=== PATIENT | male | born 1955 | race American Indian/Alaskan Native ===

== ENCOUNTER 2018-02-26 22:53 | Inpatient (IN) | payer OTHER ==
[2018-02-26 23:42] LABS: Basophils # (Auto) 0.2 K/mm3 (0.0-0.1); Basophils % (Auto) 1.1 % (0.0-1.8); Lymphocytes # (Auto) 0.7 K/mm3 (1.2-5.4); Lymphocytes % (Auto) 4.6 % (13.4-35.0); Mean Corpuscular HGB Conc 30 % (32-34); Mean Corpuscular Hemoglobin 28 pg (28-32); Mean Corpuscular Volume 94 fl (84-94); Platelet Count 202 K/mm3 (140-440); Red Cell Distribution Width 15.9 % (13.2-15.2)
[2018-02-26 23:55] LABS: Calcium 9.3 mg/dL (8.4-10.2)
[2018-02-27] MEDS ORDERED: NACL 0.9% 1000 ML 1,000 ML IV ONE ×2 (00:12→00:45)
[2018-02-27 00:15] LABS: Hematocrit 50.1 % (35.5-45.6); Hemoglobin 15.5 gm/dl (11.8-15.2)
--- NOTE | 2018-02-27 00:16 | Emergency Department Report ---
- General Chief complaint: Weakness Stated complaint: SLURRED SPEECH/WEAKNESS/LIGHTHEADED Time Seen by Provider: 02/26/18 23:59 Source: patient Mode of arrival: Ambulatory Limitations: No Limitations - History of Present Illness Initial comments: Patient is 62 years old male with history of hypertension and hyperlipidemia. Patient presented to the ER complaining of 3 week history of weakness generalized. Patient stated that he was put on hydrochlorothiazide and Norvasc for his blood pressure 3 months ago and since then he started to have weakness which is progressively getting worse. Patient also stated that his been going to the bathroom a lot recently but denied any dysuria, hematuria or urgency. Patient also denied any fever, nausea or vomiting. No chest pain or shortness of breath. MD Complaint: generalized weakness Location: generalized Severity: moderate - Related Data Home Medications Medication Instructions Recorded Confirmed Last Taken Olmesartan (Nf) 20 mg PO DAILY 02/26/18 02/26/18 Unknown Pravastatin 40 mg PO DAILY 02/26/18 02/26/18 Unknown Triamterene-Hctz 75-50 mg Tab 1 tab PO DAILY 02/26/18 02/26/18 Unknown amLODIPine 10 mg PO DAILY 02/26/18 02/26/18 Unknown Allergies Allergy/AdvReac Type Severity Reaction Status Date / Time No Known Allergies Allergy Unverified 02/26/18 23:14 ED Review of Systems ROS: Stated complaint: SLURRED SPEECH/WEAKNESS/LIGHTHEADED Other details as noted in HPI Comment: All other systems reviewed and negative Constitutional: denies: chills, fever Respiratory: denies: cough, orthopnea, shortness of breath, SOB with exertion, SOB at rest Cardiovascular: denies: chest pain, palpitations, dyspnea on exertion Gastrointestinal: denies: abdominal pain, nausea, vomiting, diarrhea, constipation, hematemesis, melena, hematochezia Neurological: weakness (generalized). denies: headache, numbness, paresthesias , confusion, abnormal gait, vertigo ED Past Medical Hx - Past Medical History Hx Hypertension: Yes Additional medical history: High Cholesterol - Surgical History Past Surgical History?: No - Social History Smoking Status: Never Smoker Substance Use Type: None - Medications Home Medications: Home Medications Medication Instructions Recorded Confirmed Last Taken Type Olmesartan (Nf) 20 mg PO DAILY 02/26/18 02/26/18 Unknown History Pravastatin 40 mg PO DAILY 02/26/18 02/26/18 Unknown History Triamterene-Hctz 75-50 mg Tab 1 tab PO DAILY 02/26/18 02/26/18 Unknown History amLODIPine 10 mg PO DAILY 02/26/18 02/26/18 Unknown History ED Physical Exam - General Limitations: No Limitations General appearance: alert, in no apparent distress - Head Head exam: Present: atraumatic, normocephalic, normal inspection - ENT ENT exam: Present: mucous membranes dry - Neck Neck exam: Present: normal inspection, full ROM. Absent: tenderness, meningismus, lymphadenopathy, thyromegaly - Respiratory Respiratory exam: Present: normal lung sounds bilaterally. Absent: respiratory distress, wheezes, rales, rhonchi, chest wall tenderness, accessory muscle use, decreased breath sounds, prolonged expiratory - Cardiovascular Cardiovascular Exam: Present: regular rate, normal rhythm, normal heart sounds - GI/Abdominal GI/Abdominal exam: Present: soft, normal bowel sounds. Absent: distended, tenderness, guarding, rebound, rigid, organomegaly, mass, bruit, pulsatile mass , hernia - Extremities Exam Extremities exam: Present: normal inspection, full ROM, normal capillary refill - Back Exam Back exam: Present: normal inspection, full ROM. Absent: tenderness, CVA tenderness (R), CVA tenderness (L), muscle spasm, paraspinal tenderness, vertebral tenderness - Neurological Exam Neurological exam: Present: alert, oriented X3, CN II-XII intact, normal gait, reflexes normal - Psychiatric Psychiatric exam: Present: normal affect, normal mood. Absent: depressed, agitated, anxious, flat affect, manic, homicidal ideation, suicidal ideation - Skin Skin exam: Present: warm, dry, intact - Assessment Assessment Interval: Baseline - Level of Consciousness 1a. Level of Consciousness: alert - LOC Questions 1b. LOC Questions: answers correctly - LOC Command 1c. LOC Commands: performs tasks correctly - Best Gaze 2. Best Gaze: normal - Visual 3. Visual: no visual loss - Facial Palsy 4. Facial Palsy: normal symmetrical movement - Motor Arm 5b. Motor Arm Right: no drift 5a. Motor Arm Left: no drift - Motor Leg 6a. Motor Leg Left: no drift 6b. Motor Leg Right: no drift - Limb Ataxia 7. Limb Ataxia: absent - Sensory 8. Sensory: normal - Best Language 9. Best Language: no aphasia - Dysarthria 10. Dysarthria: normal - Extinction and Inattention 11. Extinction/Inattention: no abnormality - Scoring Total Score: 0 Stroke Severity: No Stroke Symptoms ED Course Vital Signs 02/26/18 22:57 Temperature 97.5 F L Pulse Rate 98 H Respiratory 18 Rate Blood Pressure 109/77 O2 Sat by Pulse 98 Oximetry ED Medical Decision Making - Lab Data Result diagrams: 02/26/18 23:25 02/26/18 23:25 - EKG Data -: EKG Interpreted by Tx EKG shows normal: sinus rhythm Rate: normal - EKG Data Interpretation: no acute changes - Radiology Data Radiology results: report reviewed Referring Physician: AMANDA SOLANO Patient Name: ALMAZ FERNANDEZ Date of : 1955 Sex: Male Report Date: 2018-02-27 Report Status: [place] [address] Cat Scan Report Signed Patient: ALMAZ FERNANDEZ MR#: [id number] : 1955 Acct:[id number] Age/Sex: 62 / M ADM Date: 02/26/18 Loc: ED Attending Dr: Ordering Physician: AMANDA SOLANO Date of Service: 02/26/18 Procedure(s): CT head/brain wo con Accession Number(s): [id number] cc: AMANDA SOLANO FINAL REPORT EXAM: CT HEAD/BRAIN WO CON HISTORY: slurred speech, lightedness, weakness. not taken meds in 3 days TECHNIQUE: Noncontrast CT axial images of the brain. PRIORS: None. FINDINGS: No parenchymal mass, mass effect, hemorrhage, midline shift or hydrocephalus. No evidence of acute cortical infarct. No abnormal, extra-axial fluid or air collection. Osseous calvarium grossly intact. IMPRESSION: 1. No acute intracranial findings. Transcribed By: [facility] Dictated By: NIA MCKEON MD Electronically Authenticated By: NIA MCKEON MD Signed Date/Time: 02/27/1823 DD/ TD/TT: 02/27/1823 - Medical Decision Making I discussed the patient was Dr. Moreland, he agreed to admit the patient to medical service. Critical Care Time: Yes Critical care time in (mins) excluding proc time.: 30 Critical care attestation.: If time is entered above; I have spent that time in minutes in the direct care of this critically ill patient, excluding procedure time. ED Disposition Clinical Impression: Acute renal failure, DKA (diabetic ketoacidoses), Hyperkalemia Disposition: OP ADMIT IP TO THIS HOSP Is pt being admited?: Yes Condition: Stable Instructions: Diabetic Ketoacidosis (ED) Referrals: PRIMARY CARE, [Primary Care Provider] - 3-5 Days
--- NOTE | 2018-02-27 00:24 | Cat Scan Report ---
FINAL REPORT EXAM: CT HEAD/BRAIN WO CON HISTORY: slurred speech, lightedness, weakness. not taken meds in 3 days TECHNIQUE: Noncontrast CT axial images of the brain. PRIORS: None. FINDINGS: No parenchymal mass, mass effect, hemorrhage, midline shift or hydrocephalus. No evidence of acute cortical infarct. No abnormal, extra-axial fluid or air collection. Osseous calvarium grossly intact. IMPRESSION: 1. No acute intracranial findings.
[2018-02-27] MEDS ORDERED: HumuLIN R IV ONE (00:45)
[2018-02-27] MEDS ORDERED: D50W (25GM) Syringe IV PRN (00:46)
[2018-02-27] MEDS ORDERED: D5W/0.45% NACL/KCL 20 MEQ 20 MEQ/1,000 ML BAG IV SCH (00:46)
[2018-02-27] MEDS ORDERED: PROVENTIL IH ONE (00:50)
[2018-02-27] MEDS ORDERED: KIONEX PO ONE (00:50)
[2018-02-27 01:11] LABS: INR 1.25 (0.87-1.13)
[2018-02-27 01:12] LABS: Thrombin Time 20.9 Sec. (15.1-19.6)
[2018-02-27 01:53] LABS: Bilirubin,Urine NEG (Negative); Blood,Urine SM (Negative); Color,Urine Straw (Yellow); Protein,Urine <15 mg/dL mg/dL (Negative); Urobilinogen,Urine < 2.0 mg/dL (<2.0)
[2018-02-27] MEDS ORDERED: NACL 0.9% 1000 ML 1,000 ML IV SCH (02:00)
[2018-02-27 02:08] LABS: Calcium 9.4 mg/dL (8.4-10.2)
[2018-02-27] MEDS: HumuLIN R 100 UNITS in NACL 0.9% 99 ML IV SCH ×2 (02:38→20:25)
[2018-02-27 04:15] LABS: Calcium 9.2 mg/dL (8.4-10.2)
--- NOTE | 2018-02-27 05:08 | History and Physical Report ---
CHIEF COMPLAINT: Weakness. HISTORY OF PRESENTING ILLNESS: The patient is a 62-year-old who said he has been feeling weak for about 3 weeks with generalized weakness, but the patient denied history of numbness, dizziness, chest pain, or shortness of breath. There is also no history of nausea or vomiting; however, the patient said he thought this weakness started after he was put on blood pressure medications that include hydrochlorothiazide and Norvasc. The patient said he also noted that he has been using the bathroom a lot and said he has been urinating so much in the last few days and said that he had a physical done not too long ago and was not told anything about abnormal blood lab tests and presented for evaluation. PAST MEDICAL HISTORY: Pertinent for hypertension, high cholesterol. PAST SURGICAL HISTORY: Unremarkable. FAMILY HISTORY: Noncontributory. SOCIAL HISTORY: The patient does not smoke, does not drink alcohol, and does not use illicit drugs. MEDICATIONS: The patient is on amlodipine 10 mg by mouth daily, triamterene/hydrochlorothiazide 75/50 one by mouth daily, pravastatin 40 mg by mouth daily, olmesartan 20 mg by mouth daily. ALLERGIES: THERE ARE NO KNOWN DRUG ALLERGIES. REVIEW OF SYSTEMS: CONSTITUTIONAL: There is no fever, no chills, no diaphoresis. HEENT: There is no headache or sore throat. CARDIOVASCULAR: There is no chest pain or orthopnea. RESPIRATORY: There is no shortness of breath or cough. GASTROINTESTINAL: There is no nausea, no vomiting, no abdominal pain, diarrhea, or constipation. NEUROLOGICAL: Generalized weakness noted. No numbness, no dizziness, no altered mental status. MUSCULOSKELETAL: There is no joint pain or swelling. DERMATOLOGICAL: There is no skin rash or itching. GENITOURINARY: There is no dysuria, hematuria, or flank pain. Rest of system review is normal. PHYSICAL EXAMINATION: GENERAL: At the time of exam, the patient was found to be a lot oriented x 3 and not in acute distress. VITAL SIGNS: At the time of initial presentation show temperature of 97.5 degrees Fahrenheit, pulse of 98, respiration 18, blood pressure 119/77, and O2 sat of 98% on room air. HEENT: Showed pupils to be equal, round, reactive to light and accommodation. Extraocular muscles are intact. NECK: Supple with no JVD or carotid bruit. CARDIOVASCULAR: Showed normal first and second heart sounds with no gallops or murmurs. RESPIRATORY: Showed good air entry on both sides of the lungs with no abnormal breath sounds. GASTROINTESTINAL: Showed abdomen to be full, soft, nontender with no organomegaly or rigidity. NEUROLOGIC: Shows no focal deficit. MUSCULOSKELETAL: Shows no joint swelling or tenderness. DERMATOLOGICAL: Showed no skin rash. GENITOURINARY: Showing no costovertebral angle tenderness. PERTINENT LABORATORY AND IMAGING STUDIES: The patient has CBC done with elevated white count of 14,600, elevated hemoglobin of 15.5, and elevated hematocrit of 50.1 with CBC differential showing elevated segmented neutrophil of 87.3%. The patient's coagulation studies show high PT of 16.2 with slightly elevated INR of 1.25 and unremarkable PTT. The patient's chemistries showed a low sodium level of 131, elevated potassium level of 6.0, low chloride of 85.5 with low CO2 of 15, anion gap of about 13.5, elevated BUN of 84, and elevated creatinine of 2.7 with critically high sugar level of 1178. The patient's urinalysis was unremarkable. IMAGING STUDIES: The patient has CT of the head without contrast done that showed no acute intracranial findings. DIAGNOSES: 1. Diabetic ketoacidosis. 2. Hyperkalemia. 3. Acute kidney injury. PLAN: 1. The patient will be admitted to ICU. 2. The patient will be placed on DKA pathway and will be on IV normal saline running at 200 mL an hour after the initial boluses in the Emergency Room done. 3. The patient will continue IV insulin drip per DKA protocol which was started in the Emergency Room. 4. The patient will have basic metabolic panel checked every 2 hours and every 8 hours per DKA protocol. 5. The patient's IV fluid will be changed to D5 half normal saline with potassium supplement if needed when the blood sugar is below 250 mg/dL. 6. The patient will be on neuro check every 4 hours. 7. The patient will have Nephrology consult with Dr. Rubi Abreu this morning because of acute kidney injury. 8. The patient will be on oxygen by nasal cannula at 2 liter per minute. 9. When the patient is out of DKA, the patient will be switched off insulin drip and put on subcutaneous regular insulin with sliding scale and will be given 1800 calorie consistent carbohydrate diet and 2 g sodium diet and Then the patient's home medications will then be started orally. The patient will remain n.p.o. until he is out of DKA. The patient's potassium will be monitored with the serial basic metabolic panel. JOB# [id number] [facility]/LYDIA LEWISD
[2018-02-27 05:58] LABS: Calcium 9.3 mg/dL (8.4-10.2)
[2018-02-27 08:24] LABS: Calcium 9.5 mg/dL (8.4-10.2)
[2018-02-27 09:16] LABS: Calcium 9.2 mg/dL (8.4-10.2)
[2018-02-27] MEDS ORDERED: NON-FORMULARY (Amlodipine 10 MG) PO SCH (10:00)
[2018-02-27] MEDS ORDERED: NON-FORMULARY (Pravastatin 40 MG) PO SCH (10:00)
[2018-02-27] MEDS ORDERED: PRAVACHOL PO SCH (10:00)
[2018-02-27] MEDS ORDERED: TRIAMTERENE HCTZ PO SCH (10:00)
[2018-02-27] MEDS ORDERED: NON-FORMULARY (Olmesartan (Nf) 20 MG) PO SCH (10:00)
[2018-02-27] MEDS: COZAAR PO SCH (10:18)
[2018-02-27] MEDS: NORVASC PO SCH (10:18)
[2018-02-27] MEDS: HEPARIN SUB-Q SCH (10:18)
[2018-02-27] MEDS: MAXZIDE-25 PO SCH (10:18)
--- NOTE | 2018-02-27 10:35 | Consultation ---
History of Present Illness - Reason for Consult Consult date: 02/27/18 acute renal failure, chronic renal failure, hypernatremia - History of Present Illness This is a 62 year old male who presents to the E.R with a chief complaint of generalized weakness present for 3 weeks and slurred speech. On evaluation patient was found to be in Diabetic Ketoacidosis with an elevated glucose level of 1178. Patient was started on insulin drip. Patient states he is unaware that he is a diabetic and states he had a physical 3-[address] Barger and was not informed of having any Diabetes. States he was aware of having Hypertension which has been present for over [address] of head was negative for any acute findings. Additional pertinent labs reviewed revealed an elevated serum creatinine of 2.7. Baseline serum creatinine unknown. We are being consulted for management of this patient's Acute on Chronic Kidney Disease. Past History Past Medical History: diabetes, hypertension, hyperlipidemia Past Surgical History: Other (None reported) Social history: no significant social history Family history: no significant family history Medications and Allergies Allergies Allergy/AdvReac Type Severity Reaction Status Date / Time No Known Allergies Allergy Verified 02/27/18 00:58 Home Medications Medication Instructions Recorded Confirmed Last Taken Type Olmesartan (Nf) 20 mg PO DAILY 02/26/18 02/26/18 Unknown History Pravastatin 40 mg PO DAILY 02/26/18 02/26/18 Unknown History Triamterene-Hctz 75-50 mg Tab 1 tab PO DAILY 02/26/18 02/26/18 Unknown History amLODIPine 10 mg PO DAILY 02/26/18 02/26/18 Unknown History Active Meds: Active Medications Amlodipine Besylate (Norvasc) 10 mg PO DAILY [facility] Last Admin: 02/27/18 10:18 Dose: 10 mg Dextrose (D50w (25gm) Syringe) 0 ml IV PRN PRN PRN Reason: Hypoglycemia Heparin Sodium (Porcine) (Heparin) 5,000 unit SUB-Q Q12HR [facility] Last Admin: 02/27/18 10:18 Dose: 5,000 unit Insulin Human Regular 100 (units/ Sodium Chloride) 100 mls @ 1 mls/hr IV TITR ADRIANO; Protocol Last Titration: 02/27/18 09:44 Dose: 8 units/hr, 8 mls/hr Sodium Chloride (Nacl 0.9% 1000 Ml) 1,000 mls @ 200 mls/hr IV DIRECT [facility] Last Admin: 02/27/18 08:11 Dose: 200 mls/hr Losartan Potassium (Cozaar) 50 mg PO QDAY [facility] Last Admin: 02/27/18 10:18 Dose: 50 mg Pravastatin Sodium (Pravachol) 40 mg PO QHS [facility] Triamterene/HCTZ (Maxzide-25) 2 each PO DAILY [facility] Last Admin: 02/27/18 10:18 Dose: 2 each Review of Systems Constitutional: fatigue, poor appetite, no weight loss, no weight gain Ears, nose, mouth and throat: no ear pain, no ear discharge, no tinnitis, no decreased hearing, no nose pain, no nasal congestion, no nasal discharge Cardiovascular: no chest pain, no orthopnea, no palpitations, no rapid/ irregular heart beat, no syncope, no lightheadedness, no shortness of breath Respiratory: no cough with sputum, no excessive sputum, no hemoptysis, no shortness of breath, no dyspnea on exertion Gastrointestinal: other (Increased thirst), no abdominal pain, no nausea, no vomiting, no diarrhea, no constipation, no change in bowel habits, no hematemesis, no coffee ground emesis Genitourinary Male: no hematuria, no flank pain, no discharge, no urinary frequency, no urinary hesitancy, no nocturia, no incontinence Musculoskeletal: other (right leg swelling), no neck stiffness, no neck pain, no shooting arm pain, no arm numbness/tingling, no low back pain, no shooting leg pain, no leg numbness/tingling, no redness of joints Integumentary: no rash, no pruritis, no redness, no sores, no wounds Neurological: weakness, no transient paralysis, no paralysis, no parathesias, no tingling, no seizures, no syncope, no tremors Psychiatric: change in appetite, no memory loss, no change in sleep habits, no sleep disturbances, no insomnia, no hypersomnia, no change in libido, no suicidal ideation Endocrine: excessive thirst, polydipsia, no cold intolerance, no heat intolerance, no polyphagia, no excessive sweating, no flushing Hematologic/Lymphatic: no easy bruising, no easy bleeding Exam - Vital Signs Vital signs: Vital Signs Temp Pulse Resp BP Pulse Ox 97.5 F L 98 H 18 109/77 98 02/26/18 22:57 02/26/18 22:57 02/26/18 22:57 02/26/18 22:57 02/26/18 22:57 - General Appearance General appearance: well-developed, appears stated age, fatigue EENT: ATNC, PERRL, hearing intact, vision intact Neck: Present: neck supple, trachea midline Respiratory: Clear to Ascultation Heart: regular, S1S2 Gastrointestinal: Present: normoactive bowel sounds Integumentary: warm and dry Neurologic: alert and oriented x3 Musculoskeletal: Present: other (Has mild edema to right leg, currently wearing white compression stocking to that leg) Psychiatric: mood/affect appropriate Results - Lab Results 02/26/18 23:25 02/27/18 08:47 Most recent lab results Calcium 9.2 mg/dL (8.4-10.2) 02/27/18 08:47 Phosphorus 5.90 mg/dL (2.5-4.5) H 02/27/18 01:26 Magnesium 3.80 mg/dL (1.7-2.3) H 02/27/18 01:26 Assessment and Plan Acute on Chronic Kidney Disease likely secondary to Diabetic Nephropathy and Hypertensive Nephrosclerosis: -Renal function reviewed. Serum creatinine currently 2.3 today from 2.7 on admission. Baseline serum creatinine unknown. -Continue on IV hydration -DKA- on Insulin drip -Will obtain renal ultrasound to rule out obstruction -Will obtain urine lytes -Avoid Nephrotoxic agents -Monitor I/O's -Obtain daily weights -Will monitor renal function closely Diabetic Ketoacidosis: -On Insulin drip -As per primary team Hyperphosphatemia: -Start Renvela 800 mg 1 tab TID with meals -Monitor phosphorus and PTH levels Hypertension: -Resume home anti-hypertensive agents -Adjust regimen as needed Hypernatremia: -Continue on IV hydration
[2018-02-27 17:05] LABS: Calcium 9.8 mg/dL (8.4-10.2)
--- NOTE | 2018-02-27 18:03 | Consultation ---
History of Present Illness Consult date: 02/27/18 History of present illness: This is a 62 year old male who presents to the E.R with a chief complaint of generalized weakness present for 3 weeks and slurred speech. On evaluation patient was found to be in Diabetic Ketoacidosis with an elevated glucose level of 1178. Patient was started on insulin drip. Patient states he is unaware that he is a diabetic and states he had a physical 3-[address] Barger and was not informed of having any Diabetes. States he was aware of having Hypertension which has been present for over [address] of head was negative for any acute findings. Additional pertinent labs reviewed revealed an elevated serum creatinine of 2.7. Baseline serum creatinine unknown. We have been consulted for critical care management and facilitate his ICU admission. Patient was seen and examined. Vitals, labs, medications, chart and imaging were reviewed. Past History Past Medical History: diabetes, hypertension, hyperlipidemia Past Surgical History: Other (None reported) Social history: no significant social history Family history: no significant family history Medications and Allergies Allergies Allergy/AdvReac Type Severity Reaction Status Date / Time No Known Allergies Allergy Verified 02/27/18 00:58 Home Medications Medication Instructions Recorded Confirmed Last Taken Type Olmesartan (Nf) 20 mg PO DAILY 02/26/18 02/26/18 Unknown History Pravastatin 40 mg PO DAILY 02/26/18 02/26/18 Unknown History Triamterene-Hctz 75-50 mg Tab 1 tab PO DAILY 02/26/18 02/26/18 Unknown History amLODIPine 10 mg PO DAILY 02/26/18 02/26/18 Unknown History Active Meds: Active Medications Amlodipine Besylate (Norvasc) 10 mg PO DAILY [facility] Last Admin: 02/27/18 10:18 Dose: 10 mg Dextrose (D50w (25gm) Syringe) 0 ml IV PRN PRN PRN Reason: Hypoglycemia Heparin Sodium (Porcine) (Heparin) 5,000 unit SUB-Q Q12HR [facility] Last Admin: 02/27/18 10:18 Dose: 5,000 unit Insulin Human Regular 100 (units/ Sodium Chloride) 100 mls @ 1 mls/hr IV TITR ADRIANO; Protocol Last Titration: 02/27/18 17:53 Dose: 5 units/hr, 5 mls/hr Sodium Chloride (Nacl 0.9% 1000 Ml) 1,000 mls @ 200 mls/hr IV DIRECT [facility] Last Admin: 02/27/18 08:11 Dose: 200 mls/hr Losartan Potassium (Cozaar) 50 mg PO QDAY [facility] Last Admin: 02/27/18 10:18 Dose: 50 mg Pravastatin Sodium (Pravachol) 40 mg PO QHS [facility] Sevelamer Carbonate (Renvela) 800 mg PO TIDWM [facility] Triamterene/HCTZ (Maxzide-25) 2 each PO DAILY [facility] Last Admin: 02/27/18 10:18 Dose: 2 each Review of Systems Constitutional: fatigue, weakness, malaise, lethargy, no weight loss, no weight gain, no fever, no night sweats Cardiovascular: lightheadedness, leg edema, no chest pain, no orthopnea, no palpitations, no rapid/irregular heart beat, no edema, no shortness of breath Respiratory: no cough, no cough with sputum, no hemoptysis, no shortness of breath, no dyspnea on exertion, no congestion, no wheezing, no pain on inspiration Gastrointestinal: no abdominal pain, no nausea, no diarrhea, no change in bowel habits, no coffee ground emesis, no melena, no hematochezia, no loss of appetite , no heartburn Genitourinary Male: polyuria, no dysuria, no hematuria, no flank pain, no urinary frequency, no urinary hesitancy Rectal: no pain, no incontinence, no bleeding Musculoskeletal: no neck stiffness, no neck pain, no shooting arm pain, no low back pain, no redness of joints, no muscle weakness, no muscle cramps, no limitation of motion, no gait dysfunction, no fractures, no prior amputations Integumentary: no rash, no redness, no wounds, no jaundice, no bullae, no lesions, no depigmentation, no brittle nails, no striae Neurological: weakness, no transient paralysis, no paralysis, no numbness, no tingling, no seizures, no convulsions, no aphasia Psychiatric: change in appetite, no anxiety, no memory loss, no change in sleep habits, no sleep disturbances, no hopelessness, no anhedonia, no difficulties concentrating Endocrine: excessive thirst, polyuria, no cold intolerance, no polyphagia, no nocturia, no proptosis, no palpatations, no low blood sugars Hematologic/Lymphatic: no easy bruising, no easy bleeding Allergic/Immunologic: no urticaria, no allergic rhinitis, no wheezing, no persistent infections, no angioedema Physical Examination Vital signs: Vital Signs Temp Pulse Resp BP Pulse Ox 97.5 F L 98 H 18 109/77 98 02/26/18 22:57 02/26/18 22:57 02/26/18 22:57 02/26/18 22:57 02/26/18 22:57 General appearance: well-developed, appears stated age, fatigue EENT: ATNC, PERRL, hearing intact, vision intact Neck: Present: neck supple, trachea midline Respiratory: Clear to Ascultation Heart: regular, S1S2 Gastrointestinal: Present: normoactive bowel sounds Integumentary: warm and dry Neurologic: alert and oriented x3 Musculoskeletal: Present: other (Has mild edema to right leg, currently wearing white compression stocking to that leg) Psychiatric: mood/affect appropriate Results - Laboratory Findings CBC and BMP: 02/28/18 04:05 02/28/18 12:52 PT/INR, D-dimer PT 16.2 Sec. (12.2-14.9) H 02/27/18 00:34 INR 1.25 (0.87-1.13) H 02/27/18 00:34 Abnormal lab findings: Abnormal Labs 02/26/18 02/26/18 02/27/18 23:25 23:25 00:34 WBC 14.6 H RBC 5.60 H Hgb 15.5 H Hct 50.1 H MCHC 30 L RDW 15.9 H Lymph % (Auto) 4.6 L Lymph # 0.7 L [place] # 1.0 H Baso # 0.2 H Seg Neutrophils % 87.3 H Seg Neutrophils # 12.7 H PT 16.2 H INR 1.25 H APTT 21.0 L Thrombin Time 20.9 H Sodium 131 L Potassium 6.0 H Chloride 85.5 L Carbon Dioxide 15 L BUN 84 H Creatinine 2.7 H Glucose 1178 H* POC Glucose Phosphorus Magnesium 02/27/18 02/27/18 02/27/18 01:26 01:26 03:43 WBC RBC Hgb Hct MCHC RDW Lymph % (Auto) Lymph # [place] # Baso # Seg Neutrophils % Seg Neutrophils # PT INR APTT Thrombin Time Sodium 133 L Potassium 5.6 H Chloride 87.4 L Carbon Dioxide 18 L BUN 86 H Creatinine 2.7 H Glucose 1142 H* POC Glucose > 500 H Phosphorus 5.90 H Magnesium 3.80 H 02/27/18 02/27/18 02/27/18 03:49 05:30 07:44 WBC RBC Hgb Hct MCHC RDW Lymph % (Auto) Lymph # [place] # Baso # Seg Neutrophils % Seg Neutrophils # PT INR APTT Thrombin Time Sodium 148 H Potassium Chloride 107.4 H Carbon Dioxide BUN 81 H 81 H 79 H Creatinine 2.3 H 2.3 H 2.3 H Glucose 942 H* 811 H* 731 H* POC Glucose Phosphorus Magnesium 02/27/18 02/27/18 02/27/18 08:47 11:27 13:19 WBC RBC Hgb Hct MCHC RDW Lymph % (Auto) Lymph # [place] # Baso # Seg Neutrophils % Seg Neutrophils # PT INR APTT Thrombin Time Sodium 150 H Potassium Chloride 110.1 H Carbon Dioxide BUN 78 H Creatinine 2.3 H Glucose 628 H* POC Glucose 382 H 275 H Phosphorus Magnesium 02/27/18 02/27/18 02/27/18 14:30 16:02 16:40 WBC RBC Hgb Hct MCHC RDW Lymph % (Auto) Lymph # [place] # Baso # Seg Neutrophils % Seg Neutrophils # PT INR APTT Thrombin Time Sodium 156 H Potassium Chloride 112.6 H Carbon Dioxide BUN 64 H Creatinine 1.7 H Glucose 214 H POC Glucose 249 H 221 H Phosphorus Magnesium 02/27/18 17:12 WBC RBC Hgb Hct MCHC RDW Lymph % (Auto) Lymph # [place] # Baso # Seg Neutrophils % Seg Neutrophils # PT INR APTT Thrombin Time Sodium Potassium Chloride Carbon Dioxide BUN Creatinine Glucose POC Glucose 235 H Phosphorus Magnesium - Diagnostic Findings Additional studies: Renal USS suggestive of a renal mass and a bladder mass Assessment and Plan Hyperosmolar hyperglycemic state Hyponatremia Hyperkalemia Acute renal failure h/o HTN h/o Hyperlipidemia Leukocytosis Erythrocytosis Anion gap Metabolic acidosis h/o RLE DVT -Admit ICU -Insulin infusion -IVFluids per protocol -Serial BMPs, hyperglycemia protocol/DKA protocol -12 lead EKG -Strict Is and Os -ABGs -NPO for now -VTE prophylaxis -Kayexalate -Avoid nephrotoxic agents and adjust all medications for CrCL -Blood pressure control and monitoring -Agree with Renal consult Care plan discussed with the patient and all his questions were answered FULL CODE STATUS
[2018-02-27] MEDS: RENVELA PO SCH (20:10)
[2018-02-27] MEDS: D5W/0.45% NACL/KCL 20 MEQ 20 MEQ/1,000 ML BAG IV SCH (21:00)
[2018-02-28] MEDS: PRAVACHOL PO SCH ×2 (00:30→23:36)
[2018-02-28] MEDS: RENVELA PO SCH ×5 (00:31→17:17)
--- NOTE | 2018-02-28 01:20 | Ultrasound Report ---
FINAL REPORT PROCEDURE: US RENAL BILAT TECHNIQUE: Real-time sonography in multiple planes of the kidneys, ureters and urinary bladder was performed with image documentation. CPT 38314 HISTORY: Renal failure COMPARISON: No prior studies are available for comparison. FINDINGS: RIGHT kidney: Normal echotexture. No focal renal mass, calculus, or hydronephrosis. Length: 11.2 cm. LEFT kidney: There is a cyst measuring 9 x 6 x 15 millimeters. There are no stones. There is no hydronephrosis. There is a mass at the lower pole measuring 6.4 x 5 x 7.5 centimeters. Malignancy cannot be excluded.. Length: 10.9cm. Bladder: There is a mass in the urinary bladder measuring 3.4 x 2.5 x 2.9 centimeters. Malignancy cannot be excluded.. IMPRESSION: The right kidney is unremarkable. There is a cyst measuring 9 x 6 x 15 millimeters. There are no stones. There is no hydronephrosis. There is a mass at the lower pole measuring 6.4 x 5 x 7.5 centimeters. Malignancy cannot be excluded. There is a mass in the urinary bladder measuring 3.4 x 2.5 x 2.9 centimeters. Malignancy cannot be excluded.. .
[2018-02-28 02:15] LABS: Calcium 8.9 mg/dL (8.4-10.2)
[2018-02-28] MEDS: D5W/0.45% NACL/KCL 20 MEQ 20 MEQ/1,000 ML BAG IV SCH (04:11)
[2018-02-28 06:05] LABS: Basophils % (Auto) 0.2 % (0.0-1.8); Eosinophils % (Auto) 0.3 % (0.0-4.3); Hematocrit 45.4 % (35.5-45.6); Hemoglobin 14.9 gm/dl (11.8-15.2); Lymphocytes # (Auto) 2.1 K/mm3 (1.2-5.4); Lymphocytes % (Auto) 16.2 % (13.4-35.0); Mean Corpuscular HGB Conc 33 % (32-34); Mean Corpuscular Hemoglobin 28 pg (28-32); Mean Corpuscular Volume 85 fl (84-94); Monocytes # (Auto) 0.9 K/mm3 (0.0-0.8); Monocytes % (Auto) 7.1 % (0.0-7.3); Platelet Count 116 K/mm3 (140-440); Red Blood Count 5.34 M/mm3 (3.65-5.03); Red Cell Distribution Width 14.1 % (13.2-15.2)
[2018-02-28] MEDS: HEPARIN SUB-Q SCH ×3 (08:10→23:37)
[2018-02-28] MEDS: NORVASC PO SCH (10:04)
[2018-02-28] MEDS: COZAAR PO SCH (10:06)
--- NOTE | 2018-02-28 11:42 | Progress Note ---
Assessment and Plan Hyperosmolar hyperglycemic state Hyponatremia Hyperkalemia Acute renal failure h/o HTN h/o Hyperlipidemia Leukocytosis Erythrocytosis Anion gap Metabolic acidosis h/o RLE DVT Renal mass on imaging -Insulin infusion -IVFluids per protocol -Serial BMPs, hyperglycemia protocol/DKA protocol -Strict Is and Os -ABGs -Continue NPO for now -VTE prophylaxis -Kayexalate -Avoid nephrotoxic agents and adjust all medications for CrCL -Blood pressure control and monitoring -Urology follow up for renal mass Care plan discussed with the patient and all his questions were answered FULL CODE STATUS Subjective Date of service: 02/28/18 Interval history: Patient is seen today for: Hyperosmolar hyperglycemic State; PILI on CKD Seen and examined at bedside; 24hour events reviewed; nursing and respiratory care staff consulted; no adverse overnight events reported to me; sitting in chair;hungry but generally feels better; denies h/o CVA pain or dysuria; No N/V/ F/C; sub-optimal glycemic control, continues to require continuous insulin infusion Objective - Exam Narrative Exam: GEN: WDWN, NAD, Awake, Alert, Orientated x 3 HEENT: NCAT, EOMI, PERRL, OP Clear NECK: supple, no adenopathy, no thyromegaly, no JVD CVS/HEART: RRR, normal S1S2, pulses present bilaterally CHEST/LUNGS: CTA B, Symmetrical chest expansion, good air entry bilaterally GI/Abdomen: soft, NTND, good bowel sounds, no guarding or rebound /Bladder: no suprapubic tenderness, no CVA or paraspinal tenderness EXT/Skin: no c/c/e, no obvious rash MSK: FROM x 4 Neuro: CN 2-12 grossly intact, no new focal deficits Psych: calm Vital Signs - 12hr 02/27/18 02/28/18 02/28/18 23:51 00:01 00:11 Temperature Pulse Rate Pulse Rate [ Apical] Pulse Rate [ From Monitor] Pulse Rate [ Left Radial] Pulse Rate [ Right Radial] Respiratory Rate Blood Pressure 132/95 192/78 130/86 O2 Sat by Pulse 92 94 93 Oximetry 02/28/18 02/28/18 02/28/18 01:06 01:22 01:31 Temperature Pulse Rate 89 91 H 89 Pulse Rate [ Apical] Pulse Rate [ From Monitor] Pulse Rate [ Left Radial] Pulse Rate [ Right Radial] Respiratory 14 17 18 Rate Blood Pressure O2 Sat by Pulse 92 97 95 Oximetry 02/28/18 02/28/18 02/28/18 01:34 01:41 01:51 Temperature Pulse Rate 77 91 H 88 Pulse Rate [ 87 Apical] Pulse Rate [ 87 From Monitor] Pulse Rate [ 87 Left Radial] Pulse Rate [ 87 Right Radial] Respiratory 17 12 Rate Blood Pressure O2 Sat by Pulse 98 94 Oximetry 02/28/18 02/28/18 02/28/18 02:00 02:11 02:21 Temperature Pulse Rate 83 92 H 88 Pulse Rate [ Apical] Pulse Rate [ From Monitor] Pulse Rate [ Left Radial] Pulse Rate [ Right Radial] Respiratory 17 19 19 Rate Blood Pressure 119/83 119/83 119/83 O2 Sat by Pulse 98 99 98 Oximetry 02/28/18 02/28/18 02/28/18 02:31 02:41 02:51 Temperature Pulse Rate 98 H 85 80 Pulse Rate [ Apical] Pulse Rate [ From Monitor] Pulse Rate [ Left Radial] Pulse Rate [ Right Radial] Respiratory 21 20 20 Rate Blood Pressure 119/83 119/83 119/83 O2 Sat by Pulse 99 98 99 Oximetry 02/28/18 02/28/18 02/28/18 03:00 03:11 03:21 Temperature Pulse Rate 76 81 72 Pulse Rate [ Apical] Pulse Rate [ From Monitor] Pulse Rate [ Left Radial] Pulse Rate [ Right Radial] Respiratory 19 17 16 Rate Blood Pressure 119/83 106/59 106/59 O2 Sat by Pulse 99 98 100 Oximetry 02/28/18 02/28/18 02/28/18 03:31 03:41 03:42 Temperature 98.7 F Pulse Rate 81 81 Pulse Rate [ Apical] Pulse Rate [ From Monitor] Pulse Rate [ Left Radial] Pulse Rate [ Right Radial] Respiratory 16 19 Rate Blood Pressure 106/59 106/59 O2 Sat by Pulse 100 100 Oximetry 02/28/18 02/28/18 02/28/18 03:51 04:00 04:11 Temperature Pulse Rate 79 76 77 Pulse Rate [ Apical] Pulse Rate [ 89 From Monitor] Pulse Rate [ 89 Left Radial] Pulse Rate [ 89 Right Radial] Respiratory 19 17 22 Rate Blood Pressure 106/59 99/69 99/69 O2 Sat by Pulse 99 98 Oximetry 02/28/18 02/28/18 02/28/18 04:21 04:31 04:41 Temperature Pulse Rate 90 83 84 Pulse Rate [ Apical] Pulse Rate [ From Monitor] Pulse Rate [ Left Radial] Pulse Rate [ Right Radial] Respiratory 18 16 17 Rate Blood Pressure 99/69 99/69 99/69 O2 Sat by Pulse 85 Oximetry 02/28/18 02/28/18 02/28/18 04:51 05:00 05:11 Temperature Pulse Rate 80 82 78 Pulse Rate [ Apical] Pulse Rate [ From Monitor] Pulse Rate [ Left Radial] Pulse Rate [ Right Radial] Respiratory 15 19 18 Rate Blood Pressure 99/69 110/79 99/69 O2 Sat by Pulse 98 96 95 Oximetry 02/28/18 02/28/18 02/28/18 05:21 05:31 05:41 Temperature Pulse Rate 78 77 82 Pulse Rate [ Apical] Pulse Rate [ From Monitor] Pulse Rate [ Left Radial] Pulse Rate [ Right Radial] Respiratory 21 16 36 H Rate Blood Pressure 99/69 99/69 99/69 O2 Sat by Pulse 95 97 99 Oximetry 02/28/18 02/28/18 02/28/18 05:51 06:00 06:11 Temperature Pulse Rate 79 78 70 Pulse Rate [ 68 Apical] Pulse Rate [ 89 From Monitor] Pulse Rate [ 89 Left Radial] Pulse Rate [ 89 Right Radial] Respiratory 21 14 16 Rate Blood Pressure 99/69 99/64 99/64 O2 Sat by Pulse 96 98 97 Oximetry 02/28/18 02/28/18 02/28/18 06:21 06:31 06:41 Temperature Pulse Rate 70 77 71 Pulse Rate [ Apical] Pulse Rate [ From Monitor] Pulse Rate [ Left Radial] Pulse Rate [ Right Radial] Respiratory 14 19 19 Rate Blood Pressure 99/64 99/64 99/64 O2 Sat by Pulse 99 97 97 Oximetry 02/28/18 02/28/18 02/28/18 06:51 07:00 07:11 Temperature Pulse Rate 63 71 80 Pulse Rate [ Apical] Pulse Rate [ From Monitor] Pulse Rate [ Left Radial] Pulse Rate [ Right Radial] Respiratory 18 15 17 Rate Blood Pressure 99/64 115/79 99/64 O2 Sat by Pulse 95 98 98 Oximetry 02/28/18 02/28/18 02/28/18 07:21 07:31 07:41 Temperature Pulse Rate 76 71 62 Pulse Rate [ Apical] Pulse Rate [ From Monitor] Pulse Rate [ Left Radial] Pulse Rate [ Right Radial] Respiratory 19 14 19 Rate Blood Pressure 99/64 99/64 115/79 O2 Sat by Pulse 97 96 97 Oximetry 02/28/18 02/28/18 02/28/18 07:51 08:00 08:01 Temperature Pulse Rate 77 87 Pulse Rate [ Apical] Pulse Rate [ 90 From Monitor] Pulse Rate [ Left Radial] Pulse Rate [ Right Radial] Respiratory 14 23 13 Rate Blood Pressure 115/79 120/95 O2 Sat by Pulse 91 99 Oximetry 02/28/18 02/28/18 02/28/18 08:11 08:21 08:31 Temperature Pulse Rate 74 91 H 72 Pulse Rate [ Apical] Pulse Rate [ From Monitor] Pulse Rate [ Left Radial] Pulse Rate [ Right Radial] Respiratory 17 15 18 Rate Blood Pressure 120/95 120/95 120/95 O2 Sat by Pulse 94 95 99 Oximetry 02/28/18 02/28/18 02/28/18 08:41 08:51 09:01 Temperature Pulse Rate 79 82 75 Pulse Rate [ Apical] Pulse Rate [ From Monitor] Pulse Rate [ Left Radial] Pulse Rate [ Right Radial] Respiratory 13 16 15 Rate Blood Pressure 120/95 120/95 152/89 O2 Sat by Pulse 91 95 96 Oximetry 02/28/18 02/28/18 02/28/18 09:11 09:21 09:31 Temperature Pulse Rate 95 H Pulse Rate [ Apical] Pulse Rate [ From Monitor] Pulse Rate [ Left Radial] Pulse Rate [ Right Radial] Respiratory 13 25 H Rate Blood Pressure 152/89 152/89 152/89 O2 Sat by Pulse 91 83 L 80 L Oximetry 02/28/18 02/28/18 02/28/18 09:40 09:41 09:51 Temperature 98.4 F Pulse Rate 100 H 90 Pulse Rate [ Apical] Pulse Rate [ From Monitor] Pulse Rate [ Left Radial] Pulse Rate [ Right Radial] Respiratory 16 19 Rate Blood Pressure 152/89 152/89 O2 Sat by Pulse 83 L Oximetry 02/28/18 02/28/18 02/28/18 10:00 10:01 10:04 Temperature Pulse Rate 96 H 94 H 93 H Pulse Rate [ Apical] Pulse Rate [ From Monitor] Pulse Rate [ Left Radial] Pulse Rate [ Right Radial] Respiratory Rate Blood Pressure 152/89 105/71 O2 Sat by Pulse Oximetry 02/28/18 02/28/18 02/28/18 10:06 10:11 10:21 Temperature Pulse Rate 93 H 91 H 101 H Pulse Rate [ Apical] Pulse Rate [ From Monitor] Pulse Rate [ Left Radial] Pulse Rate [ Right Radial] Respiratory Rate Blood Pressure 105/71 105/71 105/71 O2 Sat by Pulse Oximetry 02/28/18 02/28/18 02/28/18 10:31 10:41 10:51 Temperature Pulse Rate 89 85 93 H Pulse Rate [ Apical] Pulse Rate [ From Monitor] Pulse Rate [ Left Radial] Pulse Rate [ Right Radial] Respiratory Rate Blood Pressure 105/71 105/71 105/71 O2 Sat by Pulse 85 Oximetry CBC and BMP: 03/06/18 06:26 03/08/18 06:26 ABG, PT/INR, D-dimer: PT/INR, D-dimer PT 16.2 Sec. (12.2-14.9) H 02/27/18 00:34 INR 1.25 (0.87-1.13) H 02/27/18 00:34 Abnormal lab findings: Abnormal Labs 02/26/18 02/26/18 02/27/18 23:25 23:25 00:34 WBC 14.6 H RBC 5.60 H Hgb 15.5 H Hct 50.1 H MCHC 30 L RDW 15.9 H Plt Count Lymph % (Auto) 4.6 L Lymph # 0.7 L [place] # 1.0 H Baso # 0.2 H Seg Neutrophils % 87.3 H Seg Neutrophils # 12.7 H PT 16.2 H INR 1.25 H APTT 21.0 L Thrombin Time 20.9 H Sodium 131 L Potassium 6.0 H Chloride 85.5 L Carbon Dioxide 15 L BUN 84 H Creatinine 2.7 H Glucose 1178 H* POC Glucose Phosphorus Magnesium PTH Intact 02/27/18 02/27/18 02/27/18 01:26 01:26 03:43 WBC RBC Hgb Hct MCHC RDW Plt Count Lymph % (Auto) Lymph # [place] # Baso # Seg Neutrophils % Seg Neutrophils # PT INR APTT Thrombin Time Sodium 133 L Potassium 5.6 H Chloride 87.4 L Carbon Dioxide 18 L BUN 86 H Creatinine 2.7 H Glucose 1142 H* POC Glucose > 500 H Phosphorus 5.90 H Magnesium 3.80 H PTH Intact 02/27/18 02/27/18 02/27/18 03:49 05:30 07:44 WBC RBC Hgb Hct MCHC RDW Plt Count Lymph % (Auto) Lymph # [place] # Seg Neutrophils % Seg Neutrophils # PT INR APTT Thrombin Time Sodium 148 H Potassium Chloride 107.4 H Carbon Dioxide BUN 81 H 81 H 79 H Creatinine 2.3 H 2.3 H 2.3 H Glucose 942 H* 811 H* 731 H* POC Glucose Phosphorus Magnesium PTH Intact 02/27/18 02/27/18 02/27/18 08:47 11:27 13:19 WBC RBC Hgb Hct MCHC RDW Plt Count Lymph % (Auto) Lymph # [place] # Seg Neutrophils % Seg Neutrophils # PT INR APTT Thrombin Time Sodium 150 H Potassium Chloride 110.1 H Carbon Dioxide BUN 78 H Creatinine 2.3 H Glucose 628 H* POC Glucose 382 H 275 H Phosphorus Magnesium PTH Intact 02/27/18 02/27/18 02/27/18 14:30 16:02 16:40 WBC RBC Hgb Hct MCHC RDW Plt Count Lymph % (Auto) Lymph # [place] # Seg Neutrophils % Seg Neutrophils # PT INR APTT Thrombin Time Sodium 156 H Potassium Chloride 112.6 H Carbon Dioxide BUN 64 H Creatinine 1.7 H Glucose 214 H POC Glucose 249 H 221 H Phosphorus Magnesium PTH Intact 02/27/18 02/27/18 02/27/18 17:12 19:10 20:30 WBC RBC Hgb Hct MCHC RDW Plt Count Lymph % (Auto) Lymph # [place] # Seg Neutrophils % Seg Neutrophils # PT INR APTT Thrombin Time Sodium Potassium Chloride Carbon Dioxide BUN Creatinine Glucose POC Glucose 235 H 187 H 108 H Phosphorus Magnesium PTH Intact 02/27/18 02/27/18 02/27/18 21:30 22:43 23:48 WBC RBC Hgb Hct MCHC RDW Plt Count Lymph % (Auto) Lymph # [place] # Seg Neutrophils % Seg Neutrophils # PT INR APTT Thrombin Time Sodium Potassium Chloride Carbon Dioxide BUN Creatinine Glucose POC Glucose 134 H 212 H 227 H Phosphorus Magnesium PTH Intact 02/28/18 02/28/18 02/28/18 00:50 01:27 01:52 WBC RBC Hgb Hct MCHC RDW Plt Count Lymph % (Auto) Lymph # [place] # Baso # Seg Neutrophils % Seg Neutrophils # PT INR APTT Thrombin Time Sodium 147 H D Potassium Chloride Carbon Dioxide BUN 57 H Creatinine Glucose 281 H POC Glucose 260 H 241 H Phosphorus Magnesium PTH Intact 02/28/18 02/28/18 02/28/18 02:52 03:55 04:05 WBC RBC Hgb Hct MCHC RDW Plt Count Lymph % (Auto) Lymph # [place] # Baso # Seg Neutrophils % Seg Neutrophils # PT INR APTT Thrombin Time Sodium Potassium Chloride Carbon Dioxide BUN Creatinine Glucose POC Glucose 280 H 242 H Phosphorus Magnesium PTH Intact 265.7 H 02/28/18 02/28/18 02/28/18 04:05 04:57 06:00 WBC 12.9 H RBC 5.34 H Hgb Hct MCHC RDW Plt Count 116 L Lymph % (Auto) Lymph # [place] # 0.9 H Baso # Seg Neutrophils % 76.2 H Seg Neutrophils # 9.8 H PT INR APTT Thrombin Time Sodium Potassium Chloride Carbon Dioxide BUN Creatinine Glucose POC Glucose 227 H 146 H Phosphorus Magnesium PTH Intact 02/28/18 02/28/18 02/28/18 06:54 08:14 10:01 WBC RBC Hgb Hct MCHC RDW Plt Count Lymph % (Auto) Lymph # [place] # Baso # Seg Neutrophils % Seg Neutrophils # PT INR APTT Thrombin Time Sodium Potassium Chloride Carbon Dioxide BUN Creatinine Glucose POC Glucose 134 H 110 H 130 H Phosphorus Magnesium PTH Intact 02/28/18 11:03 WBC RBC Hgb Hct MCHC RDW Plt Count Lymph % (Auto) Lymph # [place] # Baso # Seg Neutrophils % Seg Neutrophils # PT INR APTT Thrombin Time Sodium Potassium Chloride Carbon Dioxide BUN Creatinine Glucose POC Glucose 167 H Phosphorus Magnesium PTH Intact
--- NOTE | 2018-02-28 11:55 | Progress Note ---
Assessment and Plan Acute on Chronic Kidney Disease likely secondary to Diabetic Nephropathy and Hypertensive Nephrosclerosis: -Renal function reviewed. Serum creatinine trend down to 1.5 today from 2.7 on admission. Baseline serum creatinine unknown. -Continue on IV hydration- D5W/0.45%/20 meq KCL@ 125 ml/hr -Renal ultrasound- mass identified to left kidney and bladder, malignancy cannot be excluded- Urology consult to Dr. Sanchez -Urine lytes-pending -Avoid Nephrotoxic agents -Monitor I/O's -Obtain daily weights -Will continue to monitor renal function closely Diabetic Ketoacidosis: -On Insulin drip -As per primary team Hyperphosphatemia: -Renvela 800 mg 1 tab TID with meals when resume po intake -Monitor phosphorus and PTH levels Hypertension: -On Amlodipine and Losartan -Adjust regimen as needed Hypernatremia: -Currently NPO due to being on insulin drip -Continue on IV hydration Subjective Date of service: 02/28/18 Principal diagnosis: ARF on CKD Interval history: Patient seen sitting up in chair at bedside. Brother in room. Patient requesting to eat. Objective - Vital Signs Vital signs: Vital Signs - 12hr 02/28/18 02/28/18 02/28/18 00:01 00:11 01:06 Temperature Pulse Rate 89 Pulse Rate [ Apical] Pulse Rate [ From Monitor] Pulse Rate [ Left Radial] Pulse Rate [ Right Radial] Respiratory 14 Rate Blood Pressure 192/78 130/86 O2 Sat by Pulse 94 93 92 Oximetry 02/28/18 02/28/18 02/28/18 01:22 01:31 01:34 Temperature Pulse Rate 91 H 89 77 Pulse Rate [ 87 Apical] Pulse Rate [ 87 From Monitor] Pulse Rate [ 87 Left Radial] Pulse Rate [ 87 Right Radial] Respiratory 17 18 Rate Blood Pressure O2 Sat by Pulse 97 95 Oximetry 02/28/18 02/28/18 02/28/18 01:41 01:51 02:00 Temperature Pulse Rate 91 H 88 83 Pulse Rate [ Apical] Pulse Rate [ From Monitor] Pulse Rate [ Left Radial] Pulse Rate [ Right Radial] Respiratory 17 12 17 Rate Blood Pressure 119/83 O2 Sat by Pulse 98 94 98 Oximetry 02/28/18 02/28/18 02/28/18 02:11 02:21 02:31 Temperature Pulse Rate 92 H 88 98 H Pulse Rate [ Apical] Pulse Rate [ From Monitor] Pulse Rate [ Left Radial] Pulse Rate [ Right Radial] Respiratory 19 19 21 Rate Blood Pressure 119/83 119/83 119/83 O2 Sat by Pulse 99 98 99 Oximetry 02/28/18 02/28/18 02/28/18 02:41 02:51 03:00 Temperature Pulse Rate 85 80 76 Pulse Rate [ Apical] Pulse Rate [ From Monitor] Pulse Rate [ Left Radial] Pulse Rate [ Right Radial] Respiratory 20 20 19 Rate Blood Pressure 119/83 119/83 119/83 O2 Sat by Pulse 98 99 99 Oximetry 02/28/18 02/28/18 02/28/18 03:11 03:21 03:31 Temperature Pulse Rate 81 72 81 Pulse Rate [ Apical] Pulse Rate [ From Monitor] Pulse Rate [ Left Radial] Pulse Rate [ Right Radial] Respiratory 17 16 16 Rate Blood Pressure 106/59 106/59 106/59 O2 Sat by Pulse 98 100 100 Oximetry 02/28/18 02/28/18 02/28/18 03:41 03:42 03:51 Temperature 98.7 F Pulse Rate 81 79 Pulse Rate [ Apical] Pulse Rate [ From Monitor] Pulse Rate [ Left Radial] Pulse Rate [ Right Radial] Respiratory 19 19 Rate Blood Pressure 106/59 106/59 O2 Sat by Pulse 100 99 Oximetry 02/28/18 02/28/18 02/28/18 04:00 04:11 04:21 Temperature Pulse Rate 76 77 90 Pulse Rate [ Apical] Pulse Rate [ 89 From Monitor] Pulse Rate [ 89 Left Radial] Pulse Rate [ 89 Right Radial] Respiratory 17 22 18 Rate Blood Pressure 99/69 99/69 99/69 O2 Sat by Pulse 98 Oximetry 02/28/18 02/28/18 02/28/18 04:31 04:41 04:51 Temperature Pulse Rate 83 84 80 Pulse Rate [ Apical] Pulse Rate [ From Monitor] Pulse Rate [ Left Radial] Pulse Rate [ Right Radial] Respiratory 16 17 15 Rate Blood Pressure 99/69 99/69 99/69 O2 Sat by Pulse 85 98 Oximetry 02/28/18 02/28/18 02/28/18 05:00 05:11 05:21 Temperature Pulse Rate 82 78 78 Pulse Rate [ Apical] Pulse Rate [ From Monitor] Pulse Rate [ Left Radial] Pulse Rate [ Right Radial] Respiratory 19 18 21 Rate Blood Pressure 110/79 99/69 99/69 O2 Sat by Pulse 96 95 95 Oximetry 02/28/18 02/28/18 02/28/18 05:31 05:41 05:51 Temperature Pulse Rate 77 82 79 Pulse Rate [ Apical] Pulse Rate [ From Monitor] Pulse Rate [ Left Radial] Pulse Rate [ Right Radial] Respiratory 16 36 H 21 Rate Blood Pressure 99/69 99/69 99/69 O2 Sat by Pulse 97 99 96 Oximetry 02/28/18 02/28/18 02/28/18 06:00 06:11 06:21 Temperature Pulse Rate 78 70 70 Pulse Rate [ 68 Apical] Pulse Rate [ 89 From Monitor] Pulse Rate [ 89 Left Radial] Pulse Rate [ 89 Right Radial] Respiratory 14 16 14 Rate Blood Pressure 99/64 99/64 99/64 O2 Sat by Pulse 98 97 99 Oximetry 02/28/18 02/28/18 02/28/18 06:31 06:41 06:51 Temperature Pulse Rate 77 71 63 Pulse Rate [ Apical] Pulse Rate [ From Monitor] Pulse Rate [ Left Radial] Pulse Rate [ Right Radial] Respiratory 19 19 18 Rate Blood Pressure 99/64 99/64 99/64 O2 Sat by Pulse 97 97 95 Oximetry 02/28/18 02/28/18 02/28/18 07:00 07:11 07:21 Temperature Pulse Rate 71 80 76 Pulse Rate [ Apical] Pulse Rate [ From Monitor] Pulse Rate [ Left Radial] Pulse Rate [ Right Radial] Respiratory 15 17 19 Rate Blood Pressure 115/79 99/64 99/64 O2 Sat by Pulse 98 98 97 Oximetry 02/28/18 02/28/18 02/28/18 07:31 07:41 07:51 Temperature Pulse Rate 71 62 77 Pulse Rate [ Apical] Pulse Rate [ From Monitor] Pulse Rate [ Left Radial] Pulse Rate [ Right Radial] Respiratory 14 19 14 Rate Blood Pressure 99/64 115/79 115/79 O2 Sat by Pulse 96 97 91 Oximetry 02/28/18 02/28/18 02/28/18 08:00 08:01 08:11 Temperature Pulse Rate 87 74 Pulse Rate [ Apical] Pulse Rate [ 90 From Monitor] Pulse Rate [ Left Radial] Pulse Rate [ Right Radial] Respiratory 23 13 17 Rate Blood Pressure 120/95 120/95 O2 Sat by Pulse 99 94 Oximetry 02/28/18 02/28/18 02/28/18 08:21 08:31 08:41 Temperature Pulse Rate 91 H 72 79 Pulse Rate [ Apical] Pulse Rate [ From Monitor] Pulse Rate [ Left Radial] Pulse Rate [ Right Radial] Respiratory 15 18 13 Rate Blood Pressure 120/95 120/95 120/95 O2 Sat by Pulse 95 99 91 Oximetry 02/28/18 02/28/18 02/28/18 08:51 09:01 09:11 Temperature Pulse Rate 82 75 95 H Pulse Rate [ Apical] Pulse Rate [ From Monitor] Pulse Rate [ Left Radial] Pulse Rate [ Right Radial] Respiratory 16 15 13 Rate Blood Pressure 120/95 152/89 152/89 O2 Sat by Pulse 95 96 91 Oximetry 02/28/18 02/28/18 02/28/18 09:21 09:31 09:40 Temperature 98.4 F Pulse Rate Pulse Rate [ Apical] Pulse Rate [ From Monitor] Pulse Rate [ Left Radial] Pulse Rate [ Right Radial] Respiratory 25 H Rate Blood Pressure 152/89 152/89 O2 Sat by Pulse 83 L 80 L Oximetry 02/28/18 02/28/18 02/28/18 09:41 09:51 10:00 Temperature Pulse Rate 100 H 90 96 H Pulse Rate [ Apical] Pulse Rate [ From Monitor] Pulse Rate [ Left Radial] Pulse Rate [ Right Radial] Respiratory 16 19 Rate Blood Pressure 152/89 152/89 O2 Sat by Pulse 83 L Oximetry 02/28/18 02/28/18 02/28/18 10:01 10:04 10:06 Temperature Pulse Rate 94 H 93 H 93 H Pulse Rate [ Apical] Pulse Rate [ From Monitor] Pulse Rate [ Left Radial] Pulse Rate [ Right Radial] Respiratory Rate Blood Pressure 152/89 105/71 105/71 O2 Sat by Pulse Oximetry 02/28/18 02/28/18 02/28/18 10:11 10:21 10:31 Temperature Pulse Rate 91 H 101 H 89 Pulse Rate [ Apical] Pulse Rate [ From Monitor] Pulse Rate [ Left Radial] Pulse Rate [ Right Radial] Respiratory Rate Blood Pressure 105/71 105/71 105/71 O2 Sat by Pulse Oximetry 02/28/18 02/28/18 10:41 10:51 Temperature Pulse Rate 85 93 H Pulse Rate [ Apical] Pulse Rate [ From Monitor] Pulse Rate [ Left Radial] Pulse Rate [ Right Radial] Respiratory Rate Blood Pressure 105/71 105/71 O2 Sat by Pulse 85 Oximetry - General Appearance General appearance: well-developed, appears stated age, fatigue EENT: ATNC, PERRL, hearing intact, vision intact Neck: no JVD, supple Respiratory: Present: Decreased Breath Sounds Cardiology: regular, S1S2 Gastrointestinal: normoactive bowel sounds Integumentary: warm and dry, chronic venous stasis Neurologic: alert and oriented x3 Musculoskeletal: other (positive edema to BLE) - Lab 02/28/18 04:05 02/28/18 01:27 Most recent lab results Calcium 8.9 mg/dL (8.4-10.2) 02/28/18 01:27 Phosphorus 5.90 mg/dL (2.5-4.5) H 02/27/18 01:26 Magnesium 3.80 mg/dL (1.7-2.3) H 02/27/18 01:26
[2018-02-28] MEDS ORDERED: PNEUMOVAX 23 IM ONE (12:00)
[2018-02-28] MEDS: MAXZIDE-25 PO SCH (12:50)
[2018-02-28 12:59] LABS: Creatinine,Urine 125.8 mg/dL (0.1-20.0)
[2018-02-28] MEDS ORDERED: D5NS 0.2% 1,000 ML IV SCH (13:00)
[2018-02-28 13:38] LABS: BUN/Creatinine Ratio 40; Blood Urea Nitrogen 48 mg/dL (9-20); Calcium 8.2 mg/dL (8.4-10.2); Hemolysis Index 146
--- NOTE | 2018-02-28 14:38 | Consultation ---
History of Present Illness - Reason for Consult Consult date: 02/28/18 - History of Present Illness This is a 62 year old male who presents to the E.R with a chief complaint of generalized weakness present for 3 weeks and slurred speech. On evaluation patient was found to be in Diabetic Ketoacidosis with an elevated glucose level of 1178. Patient was started on insulin drip. Patient states he is unaware that he is a diabetic and states he had a physical 3-[address] Barger and was not informed of having any Diabetes. States he was aware of having Hypertension which has been present for over [address] of head was negative for any acute findings. Additional pertinent labs reviewed revealed an elevated serum creatinine of 2.7. Baseline serum creatinine unknown. We are being consulted for management of this patient's Acute on Chronic Kidney Disease. renal us suggest kidney mass a/p kidney mass need CT Past History Past Medical History: diabetes, hypertension, hyperlipidemia Past Surgical History: Other (None reported) Social history: no significant social history Family history: no significant family history Medications and Allergies Allergies Allergy/AdvReac Type Severity Reaction Status Date / Time No Known Allergies Allergy Verified 02/27/18 00:58 Home Medications Medication Instructions Recorded Confirmed Last Taken Type Olmesartan (Nf) 20 mg PO DAILY 02/26/18 02/26/18 Unknown History Pravastatin 40 mg PO DAILY 02/26/18 02/26/18 Unknown History Triamterene-Hctz 75-50 mg Tab 1 tab PO DAILY 02/26/18 02/26/18 Unknown History amLODIPine 10 mg PO DAILY 02/26/18 02/26/18 Unknown History Active Meds: Active Medications Amlodipine Besylate (Norvasc) 10 mg PO DAILY [facility] Last Admin: 02/28/18 10:04 Dose: 10 mg Dextrose (D50w (25gm) Syringe) 0 ml IV PRN PRN PRN Reason: Hypoglycemia Heparin Sodium (Porcine) (Heparin) 5,000 unit SUB-Q Q12HR [facility] Last Admin: 02/28/18 10:03 Dose: 5,000 unit Insulin Human Regular 100 (units/ Sodium Chloride) 100 mls @ 1 mls/hr IV TITR ADRIANO; Protocol Last Titration: 02/28/18 14:07 Dose: 8 units/hr, 8 mls/hr Dextrose/Sodium Chloride (D5ns 0.2%) 1,000 mls @ 125 mls/hr IV DIRECT [facility] Last Admin: 02/28/18 12:47 Dose: 250 mls/hr Losartan Potassium (Cozaar) 50 mg PO QDAY [facility] Last Admin: 02/28/18 10:06 Dose: 50 mg Pravastatin Sodium (Pravachol) 40 mg PO QHS [facility] Last Admin: 02/28/18 00:30 Dose: 40 mg Sevelamer Carbonate (Renvela) 800 mg PO TIDWM [facility] Last Admin: 02/28/18 12:24 Dose: 800 mg Triamterene/HCTZ (Maxzide-25) 2 each PO DAILY [facility] Last Admin: 02/28/18 12:50 Dose: 2 each Exam - Constitutional Vitals: Temp Pulse Resp BP Pulse Ox 98.1 F 86 18 143/98 78 L 02/28/18 12:00 02/28/18 14:00 02/28/18 12:00 02/28/18 14:00 02/28/18 13:31 Results - Labs CBC & Chem 7: 02/28/18 04:05 02/28/18 12:52 Labs: Abnormal lab results 02/27/18 02/27/18 02/27/18 Range/Units 14:30 16:02 16:40 WBC (4.5-11.0) K/mm3 RBC (3.65-5.03) M/mm3 Plt Count (140-440) K/mm3 [place] # (0.0-0.8) K/mm3 Seg Neutrophils % (40.0-70.0) % Seg Neutrophils # (1.8-7.7) K/mm3 Sodium 156 H (137-145) mmol/L Chloride 112.6 H (98-107) mmol/L Carbon Dioxide (22-30) mmol/L BUN 64 H (9-20) mg/dL Creatinine 1.7 H (0.8-1.5) mg/dL Glucose 214 H (75-100) mg/dL POC Glucose 249 H 221 H (70-105) Calcium (8.4-10.2) mg/dL PTH Intact (15-65) pg/mL Urine Creatinine (0.1-20.0) mg/dL Urine Total Protein (5-11.8) mg/dL 02/27/18 02/27/18 02/27/18 Range/Units 17:12 19:10 20:30 WBC (4.5-11.0) K/mm3 RBC (3.65-5.03) M/mm3 Plt Count (140-440) K/mm3 [place] # (0.0-0.8) K/mm3 Seg Neutrophils % (40.0-70.0) % Seg Neutrophils # (1.8-7.7) K/mm3 Sodium (137-145) mmol/L Chloride (98-107) mmol/L Carbon Dioxide (22-30) mmol/L BUN (9-20) mg/dL Creatinine (0.8-1.5) mg/dL Glucose (75-100) mg/dL POC Glucose 235 H 187 H 108 H (70-105) Calcium (8.4-10.2) mg/dL PTH Intact (15-65) pg/mL Urine Creatinine (0.1-20.0) mg/dL Urine Total Protein (5-11.8) mg/dL 02/27/18 02/27/18 02/27/18 Range/Units 21:30 22:43 23:48 WBC (4.5-11.0) K/mm3 RBC (3.65-5.03) M/mm3 Plt Count (140-440) K/mm3 [place] # (0.0-0.8) K/mm3 Seg Neutrophils % (40.0-70.0) % Seg Neutrophils # (1.8-7.7) K/mm3 Sodium (137-145) mmol/L Chloride (98-107) mmol/L Carbon Dioxide (22-30) mmol/L BUN (9-20) mg/dL Creatinine (0.8-1.5) mg/dL Glucose (75-100) mg/dL POC Glucose 134 H 212 H 227 H (70-105) Calcium (8.4-10.2) mg/dL PTH Intact (15-65) pg/mL Urine Creatinine (0.1-20.0) mg/dL Urine Total Protein (5-11.8) mg/dL 02/28/18 02/28/18 02/28/18 Range/Units 00:50 01:27 01:52 WBC (4.5-11.0) K/mm3 RBC (3.65-5.03) M/mm3 Plt Count (140-440) K/mm3 [place] # (0.0-0.8) K/mm3 Seg Neutrophils % (40.0-70.0) % Seg Neutrophils # (1.8-7.7) K/mm3 Sodium 147 H D (137-145) mmol/L Chloride (98-107) mmol/L Carbon Dioxide (22-30) mmol/L BUN 57 H (9-20) mg/dL Creatinine (0.8-1.5) mg/dL Glucose 281 H (75-100) mg/dL POC Glucose 260 H 241 H (70-105) Calcium (8.4-10.2) mg/dL PTH Intact (15-65) pg/mL Urine Creatinine (0.1-20.0) mg/dL Urine Total Protein (5-11.8) mg/dL 02/28/18 02/28/18 02/28/18 Range/Units 02:52 03:55 04:05 WBC (4.5-11.0) K/mm3 RBC (3.65-5.03) M/mm3 Plt Count (140-440) K/mm3 [place] # (0.0-0.8) K/mm3 Seg Neutrophils % (40.0-70.0) % Seg Neutrophils # (1.8-7.7) K/mm3 Sodium (137-145) mmol/L Chloride (98-107) mmol/L Carbon Dioxide (22-30) mmol/L BUN (9-20) mg/dL Creatinine (0.8-1.5) mg/dL Glucose (75-100) mg/dL POC Glucose 280 H 242 H (70-105) Calcium (8.4-10.2) mg/dL PTH Intact 265.7 H (15-65) pg/mL Urine Creatinine (0.1-20.0) mg/dL Urine Total Protein (5-11.8) mg/dL 02/28/18 02/28/18 02/28/18 Range/Units 04:05 04:57 06:00 WBC 12.9 H (4.5-11.0) K/mm3 RBC 5.34 H (3.65-5.03) M/mm3 Plt Count 116 L (140-440) K/mm3 B[place] # 0.9 H (0.0-0.8) K/mm3 Seg Neutrophils % 76.2 H (40.0-70.0) % Seg Neutrophils # 9.8 H (1.8-7.7) K/mm3 Sodium (137-145) mmol/L Chloride (98-107) mmol/L Carbon Dioxide (22-30) mmol/L BUN (9-20) mg/dL Creatinine (0.8-1.5) mg/dL Glucose (75-100) mg/dL POC Glucose 227 H 146 H (70-105) Calcium (8.4-10.2) mg/dL PTH Intact (15-65) pg/mL Urine Creatinine (0.1-20.0) mg/dL Urine Total Protein (5-11.8) mg/dL 02/28/18 02/28/18 02/28/18 Range/Units 06:54 08:14 10:01 WBC (4.5-11.0) K/mm3 RBC (3.65-5.03) M/mm3 Plt Count (140-440) K/mm3 [place] # (0.0-0.8) K/mm3 Seg Neutrophils % (40.0-70.0) % Seg Neutrophils # (1.8-7.7) K/mm3 Sodium (137-145) mmol/L Chloride (98-107) mmol/L Carbon Dioxide (22-30) mmol/L BUN (9-20) mg/dL Creatinine (0.8-1.5) mg/dL Glucose (75-100) mg/dL POC Glucose 134 H 110 H 130 H (70-105) Calcium (8.4-10.2) mg/dL PTH Intact (15-65) pg/mL Urine Creatinine (0.1-20.0) mg/dL Urine Total Protein (5-11.8) mg/dL 02/28/18 02/28/18 02/28/18 Range/Units 11:03 12:13 12:52 WBC (4.5-11.0) K/mm3 RBC (3.65-5.03) M/mm3 Plt Count (140-440) K/mm3 [place] # (0.0-0.8) K/mm3 Seg Neutrophils % (40.0-70.0) % Seg Neutrophils # (1.8-7.7) K/mm3 Sodium (137-145) mmol/L Chloride (98-107) mmol/L Carbon Dioxide 17 L D (22-30) mmol/L BUN 48 H (9-20) mg/dL Creatinine (0.8-1.5) mg/dL Glucose 245 H (75-100) mg/dL POC Glucose 167 H 194 H (70-105) Calcium 8.2 L (8.4-10.2) mg/dL PTH Intact (15-65) pg/mL Urine Creatinine (0.1-20.0) mg/dL Urine Total Protein (5-11.8) mg/dL 02/28/18 02/28/18 Range/Units 14:05 Unknown WBC (4.5-11.0) K/mm3 RBC (3.65-5.03) M/mm3 Plt Count (140-440) K/mm3 [place] # (0.0-0.8) K/mm3 Seg Neutrophils % (40.0-70.0) % Seg Neutrophils # (1.8-7.7) K/mm3 Sodium (137-145) mmol/L Chloride (98-107) mmol/L Carbon Dioxide (22-30) mmol/L BUN (9-20) mg/dL Creatinine (0.8-1.5) mg/dL Glucose (75-100) mg/dL POC Glucose 207 H (70-105) Calcium (8.4-10.2) mg/dL PTH Intact (15-65) pg/mL Urine Creatinine 125.8 H (0.1-20.0) mg/dL Urine Total Protein 46 H (5-11.8) mg/dL
[2018-02-28] MEDS ORDERED: VASELINE LIP THERAPY TP PRN (14:57)
--- NOTE | 2018-02-28 17:08 | Cat Scan Report ---
FINAL REPORT EXAM: CT ABDOMEN PELVIS WO CON HISTORY: kidney mass, renal failure TECHNIQUE: Axial helical imaging through the abdomen and pelvis with sagittal and coronal reformatted images obtained. Comparison: Ultrasound kidneys dated February 27, 2018 FINDINGS: There are 2 small foci of decreased density within the liver that measure approximately 6 millimeters that are too small to characterize. The spleen and pancreas are unremarkable in appearance. The gallbladder is moderately distended and contains a calcified gallstone. There is an approximately 3.5 centimeter x 2.3 centimeter by 2 centimeter mass in the left adrenal gland with Hounsfield units suggestive of an adenoma. There is an approximately 7.3 centimeter (AP) by 6.8 centimeter (lateral) by 6.7 centimeter (craniocaudal) heterogeneous mass arising from the lower pole of the left kidney. It is unclear whether or not punctate calcifications in the left renal pelvis represent vascular calcifications, small stones or combination of both. There is an approximately 1 centimeter probable cyst in the right kidney. The right kidney is otherwise unremarkable in appearance. The bowel is normal caliber. There is a [id number] amount of stool throughout the colon. There is no evidence of pneumoperitoneum or free fluid. There is approximately 3.6 centimeter aneurysmal dilatation of the infrarenal abdominal aorta. There is no definite evidence of pathologic intra-abdominal adenopathy by size criteria on this study without contrast. The urinary bladder is moderately distended. There is soft tissue density in the posterior aspect of the urinary bladder that is somewhat irregular in contour. It is unclear whether not this is a mass arising from the posterior wall of the urinary bladder or is arising from the prostate gland. The prostate gland is enlarged with maximal axial dimension of 6 centimeters. The bony structures are notable for spondylitic change in the lumbar spine with the appearance of canal stenosis in the lower lumbar spine in the appearance of possible previous left L5 laminectomy. There is grade 1 anterolisthesis L4 on L5. IMPRESSION: 1. Approximately 7.3 centimeter x 6.8 centimeter x 6.7 centimeter mass arising from the lower pole of the left kidney. Recommend referral to Urology for further evaluation. 2. Punctate calcifications, stones, vascular calcifications versus combination of both, in the left renal pelvis. 3. Approximately 3.6 centimeter aneurysmal dilatation infrarenal abdominal aorta. Comparison with previous imaging studies and continued surveillance is recommended. 4. Soft tissue density in the posterior aspect of the urinary bladder is that is somewhat irregular in contour. Whether not this is arising from the posterior wall of the urinary bladder from the prostate gland is unclear. The prostate gland is enlarged. 5. Appearance of spondylitic and probable postsurgical change lumbar spine with the appearance of canal stenosis in the lower lumbar spine.
[2018-02-28] MEDS: HumuLIN R 100 UNITS in NACL 0.9% 99 ML IV SCH (17:14)
[2018-02-28 18:07] LABS: BUN/Creatinine Ratio 34; Blood Urea Nitrogen 44 mg/dL (9-20); Calcium 8.7 mg/dL (8.4-10.2); Hemolysis Index 23
[2018-02-28 23:43] LABS: Blood Urea Nitrogen 40 mg/dL (9-20); Calcium 8.4 mg/dL (8.4-10.2); Hemolysis Index 183
[2018-02-28] MEDS ORDERED: LANTUS SUB-Q SCH (23:43)
--- NOTE | 2018-02-28 23:48 | Progress Note ---
Assessment and Plan Assessment and plan: DKA, new onset DM continue insulin drip, will transition to sq when he improves Hypernatremia -continue IVF, encourage PO water intake PILI- vasomotor nephropathy continue IVF hx of DVT- year ago History Interval history: Review of systems Constitutional: No fevers, no malaise, no joint pains CVS: No chest pain, no orthopnea, no dyspnea on exertion, no pedal edema GI: No abdominal pain, no diarrhea, no vomiting, no constipation Respiratory: No shortness of breath, no wheezing, no coughing Hospitalist Physical - Physical exam Narrative exam: General.: Appears well, no distress, nontoxic HEENT: Moist mucous membranes, extraocular muscles intact, no lymphadenopathy Neck: supple Cardiac: S1-S2 heard Lungs: clear to auscultation bilaterally Abdomen: soft , nontender, nondistended, bowel sounds positive Extremities: no edema clubbing or cyanosis, right lower extremity with chronic skin changes, skin thickening and hyperpigmentation Skin: no rash or lesions Neurologic: no gross focal deficits Psych: appropriate behavior, appropriate mood, corporative, judgment intact - Constitutional Vitals: Temp Pulse Resp BP Pulse Ox 98.1 F 78 18 117/76 95 02/28/18 12:00 02/28/18 22:00 02/28/18 22:00 02/28/18 22:00 02/28/18 22:00 Results - Labs CBC & Chem 7: 02/28/18 04:05 03/04/18 07:07 Labs: Laboratory Last Values WBC 12.9 K/mm3 (4.5-11.0) H 02/28/18 04:05 RBC 5.34 M/mm3 (3.65-5.03) H 02/28/18 04:05 Hgb 14.9 gm/dl (11.8-15.2) 02/28/18 04:05 Hct 45.4 % (35.5-45.6) 02/28/18 04:05 MCV 85 fl (84-94) 02/28/18 04:05 MCH 28 pg (28-32) 02/28/18 04:05 MCHC 33 % (32-34) 02/28/18 04:05 RDW 14.1 % (13.2-15.2) 02/28/18 04:05 Plt Count 116 K/mm3 (140-440) L 02/28/18 04:05 Lymph % (Auto) 16.2 % (13.4-35.0) 02/28/18 04:05 [place] % (Auto) 7.1 % (0.0-7.3) 02/28/18 04:05 Eos % (Auto) 0.3 % (0.0-4.3) 02/28/18 04:05 Baso % (Auto) 0.2 % (0.0-1.8) 02/28/18 04:05 Lymph # 2.1 K/mm3 (1.2-5.4) 02/28/18 04:05 [place] # 0.9 K/mm3 (0.0-0.8) H 02/28/18 04:05 Eos # 0.0 K/mm3 (0.0-0.4) 02/28/18 04:05 Baso # 0.0 K/mm3 (0.0-0.1) 02/28/18 04:05 Seg Neutrophils % 76.2 % (40.0-70.0) H 02/28/18 04:05 Seg Neutrophils # 9.8 K/mm3 (1.8-7.7) H 02/28/18 04:05 PT 16.2 Sec. (12.2-14.9) H 02/27/18 00:34 INR 1.25 (0.87-1.13) H 02/27/18 00:34 APTT 21.0 Sec. (24.2-36.6) L 02/27/18 00:34 Thrombin Time 20.9 Sec. (15.1-19.6) H 02/27/18 00:34 Sodium 144 mmol/L (137-145) 02/28/18 17:24 Potassium 3.6 mmol/L (3.6-5.0) D 02/28/18 17:24 Chloride 103.3 mmol/L (98-107) 02/28/18 17:24 Carbon Dioxide 26 mmol/L (22-30) D 02/28/18 17:24 Anion Gap 18 mmol/L 02/28/18 17:24 BUN 44 mg/dL (9-20) H 02/28/18 17:24 Creatinine 1.3 mg/dL (0.8-1.5) 02/28/18 17:24 Estimated GFR > 60 ml/min 02/28/18 17:24 BUN/Creatinine Ratio 34 % 02/28/18 17:24 Glucose 163 mg/dL (75-100) H 02/28/18 17:24 POC Glucose 120 (70-105) H 02/28/18 20:34 Calcium 8.7 mg/dL (8.4-10.2) 02/28/18 17:24 Phosphorus 5.90 mg/dL (2.5-4.5) H 02/27/18 01:26 Magnesium 3.80 mg/dL (1.7-2.3) H 02/27/18 01:26 Troponin T 0.015 ng/mL (0.00-0.029) 02/26/18 23:25 PTH Intact 265.7 pg/mL (15-65) H 02/28/18 04:05 Urine Color Straw (Yellow) 02/27/18 01:02 Urine Turbidity Clear (Clear) 02/27/18 01:02 Urine pH 5.0 (5.0-7.0) 02/27/18 01:02 Ur Specific [place] 1.024 (1.003-1.030) 02/27/18 01:02 Urine Protein <15 mg/dl mg/dL (Negative) 02/27/18 01:02 Urine Glucose (UA) >=500 mg/dL (Negative) 02/27/18 01:02 Urine Ketones Tr mg/dL (Negative) 02/27/18 01:02 Urine Blood Sm (Negative) 02/27/18 01:02 Urine Nitrite Neg (Negative) 02/27/18 01:02 Urine Bilirubin Neg (Negative) 02/27/18 01:02 Urine Urobilinogen < 2.0 mg/dL (<2.0) 02/27/18 01:02 Ur Leukocyte Esterase Neg (Negative) 02/27/18 01:02 Urine WBC (Auto) 2.0 /HPF (0.0-6.0) 02/27/18 01:02 Urine RBC (Auto) 7.0 /HPF (0.0-6.0) 02/27/18 01:02 U Epithel Cells (Auto) < 1.0 /HPF (0-13.0) 02/27/18 01:02 Urine Yeast (Budding) Few /HPF 02/27/18 01:02 Urine Creatinine 125.8 mg/dL (0.1-20.0) H 02/28/18 Unknown Urine Sodium 66 mmol/L 02/28/18 Unknown Urine Total Protein 46 mg/dL (5-11.8) H 02/28/18 Unknown
[2018-03-01 00:04] LABS: BUN/Creatinine Ratio 33
[2018-03-01 02:41] LABS: BUN/Creatinine Ratio 33; Blood Urea Nitrogen 39 mg/dL (9-20); Calcium 8.2 mg/dL (8.4-10.2); Hemolysis Index 3
[2018-03-01 06:11] LABS: BUN/Creatinine Ratio 32; Blood Urea Nitrogen 38 mg/dL (9-20); Calcium 8.2 mg/dL (8.4-10.2); Hemolysis Index 12
[2018-03-01] MEDS: HumaLOG SUB-Q SCH ×5 (08:47→23:01)
[2018-03-01] MEDS: RENVELA PO SCH (08:49)
[2018-03-01 09:15] LABS: BUN/Creatinine Ratio 25; Blood Urea Nitrogen 27 mg/dL (9-20); Calcium 8.3 mg/dL (8.4-10.2); Hemolysis Index 37
[2018-03-01] MEDS: NORVASC PO SCH (09:31)
[2018-03-01] MEDS: HEPARIN SUB-Q SCH ×2 (09:31→22:56)
[2018-03-01] MEDS: COZAAR PO SCH (09:31)
[2018-03-01] MEDS: MAXZIDE-25 PO SCH (09:32)
--- NOTE | 2018-03-01 10:02 | Consultation ---
History of Present Illness - Reason for Consult acute renal failure Past History Past Medical History: diabetes, hypertension, hyperlipidemia Past Surgical History: Other (None reported) Social history: no significant social history Family history: no significant family history Medications and Allergies Allergies Allergy/AdvReac Type Severity Reaction Status Date / Time No Known Allergies Allergy Verified 02/27/18 00:58 Home Medications Medication Instructions Recorded Confirmed Last Taken Type Olmesartan (Nf) 20 mg PO DAILY 02/26/18 02/26/18 Unknown History Pravastatin 40 mg PO DAILY 02/26/18 02/26/18 Unknown History Triamterene-Hctz 75-50 mg Tab 1 tab PO DAILY 02/26/18 02/26/18 Unknown History amLODIPine 10 mg PO DAILY 02/26/18 02/26/18 Unknown History Active Meds: Active Medications Amlodipine Besylate (Norvasc) 10 mg PO DAILY FORMERLY [facility], [facility]1983 Last Admin: 03/01/18 09:31 Dose: 10 mg Dextrose (D50w (25gm) Syringe) 0 ml IV PRN PRN PRN Reason: Hypoglycemia Heparin Sodium (Porcine) (Heparin) 5,000 unit SUB-Q Q12HR [facility], [facility]1983 Last Admin: 03/01/18 09:31 Dose: 5,000 unit Hydrophilic Ointment (Vaseline Lip Therapy) 1 applic TP DIRECT PRN PRN Reason: DRY LIPS Insulin Glargine (Lantus) 30 units SUB-Q QHS [facility], [facility]1983 Last Admin: 03/01/18 00:56 Dose: 30 units Insulin Human Lispro (Humalog) 0 unit SUB-Q [facility] FORMERLY [facility], [facility]–1983; Protocol Last Admin: 03/01/18 08:47 Dose: 6 unit Losartan Potassium (Cozaar) 50 mg PO QDAY FOR[facility], [facility]1983 Last Admin: 03/01/18 09:31 Dose: 50 mg Pravastatin Sodium (Pravachol) 40 mg PO QHS [facility], [facility]1983 Last Admin: 02/28/18 23:36 Dose: 40 mg Sevelamer Carbonate (Renvela) 800 mg PO TIDWM FOR[facility], [facility] Last Admin: 03/01/18 08:49 Dose: 800 mg Triamterene/HCTZ (Maxzide-25) 2 each PO DAILY FOR[facility], [facility] Last Admin: 03/01/18 09:32 Dose: 2 each Exam - Vital Signs Vital signs: Vital Signs Temp Pulse Resp BP Pulse Ox 97.5 F L 98 H 18 109/77 98 02/26/18 22:57 02/26/18 22:57 02/26/18 22:57 02/26/18 22:57 02/26/18 22:57 Results - Lab Results 02/28/18 04:05 03/01/18 06:36 Most recent lab results Calcium 8.3 mg/dL (8.4-10.2) L 03/01/18 06:36 Phosphorus 1.90 mg/dL (2.5-4.5) L 03/01/18 04:41 Magnesium 3.80 mg/dL (1.7-2.3) H 02/27/18 01:26 Urine Creatinine 125.8 mg/dL (0.1-20.0) H 02/28/18 Unknown Urine Sodium 66 mmol/L 02/28/18 Unknown Urine Total Protein 46 mg/dL (5-11.8) H 02/28/18 Unknown Assessment and Plan Acute on Chronic Kidney Disease likely secondary to Diabetic Nephropathy and Hypertensive Nephrosclerosis: -kidney function cont to improve, good UOP -Renal ultrasound- mass identified to left kidney and bladder, malignancy cannot be excluded- Urology consult to Dr. Sanchez -Urine lytes-pending -Avoid Nephrotoxic agents -Monitor I/O's -Obtain daily weights -Will continue to monitor renal function closely Diabetic Ketoacidosis: -On Insulin drip -As per primary team Hyperphosphatemia: -resolved, will d/c phos binders Hypertension: -On Amlodipine and Losartan -will d/c triametrene/HCTZ Hypernatremia: -resolved
[2018-03-01 10:23] LABS: BUN/Creatinine Ratio 31; Blood Urea Nitrogen 37 mg/dL (9-20); Calcium 7.9 mg/dL (8.4-10.2); Hemolysis Index 12
--- NOTE | 2018-03-01 11:27 | Progress Note ---
Assessment and Plan Hyperosmolar hyperglycemic state Hyponatremia Hyperkalemia Acute renal failure h/o HTN h/o Hyperlipidemia Leukocytosis Erythrocytosis Anion gap Metabolic acidosis h/o RLE DVT (explained renal mass finding to him and need for urology evaluation) - continue glycemic control for NODM with SSI for target BG 140-180 mg/dl acutely - off IV insulin - resume oral diet - prn ABG's at this point - urology evaluation pendingVTE prophylaxis -Kayexalate - continue to avoid nephrotoxic agents and adjust all medications for CrCL - azotemia per nephrology otherwise - GI & VTE prophylaxis - continue blood pressure control and monitoring - continue other care per attending / other consultants .... transfer to medical floor ok ....... Care plan discussed with the patient and all his questions were answered FULL CODE STATUS Subjective Date of service: 03/01/18 Principal diagnosis: Hyperosmolar hyperglycemic State; PILI on CKD Interval history: Patient is seen today for: Hyperosmolar hyperglycemic State; PILI on CKD Seen and examined at bedside; 24hour events reviewed; nursing and respiratory care staff consulted; no adverse overnight events reported to me; sitting in chair; shaving his head; feels better; denies h/o CVA pain or dysuria; No N/V/F/ C; sugars better controlled and started on long acting insulin therapy Objective Vital Signs - 12hr 02/28/18 03/01/18 03/01/18 23:31 00:00 00:31 Temperature Pulse Rate 77 84 78 Pulse Rate [ From Monitor] Respiratory Rate Blood Pressure 117/76 151/80 151/80 O2 Sat by Pulse Oximetry 03/01/18 03/01/18 03/01/18 01:00 01:31 02:00 Temperature Pulse Rate 74 74 70 Pulse Rate [ From Monitor] Respiratory Rate Blood Pressure 125/83 125/83 118/65 O2 Sat by Pulse Oximetry 03/01/18 03/01/18 03/01/18 02:27 02:31 03:00 Temperature Pulse Rate 77 73 Pulse Rate [ 72 From Monitor] Respiratory 18 Rate Blood Pressure 118/65 118/65 O2 Sat by Pulse Oximetry 03/01/18 03/01/18 03/01/18 03:30 04:01 04:31 Temperature Pulse Rate 69 77 79 Pulse Rate [ From Monitor] Respiratory Rate Blood Pressure 81/49 87/70 81/49 O2 Sat by Pulse Oximetry 03/01/18 03/01/18 03/01/18 05:01 07:47 08:00 Temperature 97.6 F Pulse Rate 73 70 72 Pulse Rate [ From Monitor] Respiratory Rate Blood Pressure 87/70 87/70 102/66 O2 Sat by Pulse 97 Oximetry 03/01/18 03/01/18 03/01/18 08:31 08:44 09:01 Temperature Pulse Rate 78 78 Pulse Rate [ From Monitor] Respiratory 15 Rate Blood Pressure 102/66 140/75 O2 Sat by Pulse 96 97 Oximetry 03/01/18 03/01/18 09:31 10:00 Temperature Pulse Rate 87 88 Pulse Rate [ 82 From Monitor] Respiratory 18 23 Rate Blood Pressure 102/66 129/70 O2 Sat by Pulse 97 98 Oximetry Constitutional: no acute distress, alert, other (elderly AAM, normocephalic and atraumatic) Eyes: non-icteric ENT: oropharynx moist, other (Mallampati 3) Neck: supple, no lymphadenopathy, no JVD, other (No thyromegaly) Effort: mildly labored Ascultation: Bilateral: clear, diminished breath sounds Percussion: Bilateral: not dull Cardiovascular: regular rate and rhythm, other (No R/M) Gastrointestinal: normoactive bowel sounds, soft, non-tender, non-distended, other (No HSM) Integumentary: normal Extremities: no cyanosis, no edema, pulses normal, no ischemia or petechiae Neurologic: normal mental status, non-focal exam, pupils equal and round, CN II- XII normal Psychiatric: mood appropriate, affect normal CBC and BMP: 02/28/18 04:05 03/03/18 05:04 ABG, PT/INR, D-dimer: PT/INR, D-dimer PT 16.2 Sec. (12.2-14.9) H 02/27/18 00:34 INR 1.25 (0.87-1.13) H 02/27/18 00:34 Abnormal lab findings: Abnormal Labs 02/26/18 02/26/18 02/27/18 23:25 23:25 00:34 WBC 14.6 H RBC 5.60 H Hgb 15.5 H Hct 50.1 H MCHC 30 L RDW 15.9 H Plt Count Lymph % (Auto) 4.6 L Lymph # 0.7 L [place] # 1.0 H Baso # 0.2 H Seg Neutrophils % 87.3 H Seg Neutrophils # 12.7 H PT 16.2 H INR 1.25 H APTT 21.0 L Thrombin Time 20.9 H Sodium 131 L Potassium 6.0 H Chloride 85.5 L Carbon Dioxide 15 L BUN 84 H Creatinine 2.7 H Glucose 1178 H* POC Glucose Calcium Phosphorus Magnesium PTH Intact Urine Creatinine Urine Total Protein 02/27/18 02/27/18 02/27/18 01:26 01:26 03:43 WBC RBC Hgb Hct MCHC RDW Plt Count Lymph % (Auto) Lymph # [place] # Baso # Seg Neutrophils % Seg Neutrophils # PT INR APTT Thrombin Time Sodium 133 L Potassium 5.6 H Chloride 87.4 L Carbon Dioxide 18 L BUN 86 H Creatinine 2.7 H Glucose 1142 H* POC Glucose > 500 H Calcium Phosphorus 5.90 H Magnesium 3.80 H PTH Intact Urine Creatinine Urine Total Protein 02/27/18 02/27/18 02/27/18 03:49 05:30 07:44 WBC RBC Hgb Hct MCHC RDW Plt Count Lymph % (Auto) Lymph # [place] # Baso # Seg Neutrophils % Seg Neutrophils # PT INR APTT Thrombin Time Sodium 148 H Potassium Chloride 107.4 H Carbon Dioxide BUN 81 H 81 H 79 H Creatinine 2.3 H 2.3 H 2.3 H Glucose 942 H* 811 H* 731 H* POC Glucose Calcium Phosphorus Magnesium PTH Intact Urine Creatinine Urine Total Protein 02/27/18 02/27/18 02/27/18 08:47 11:27 13:19 WBC RBC Hgb Hct MCHC RDW Plt Count Lymph % (Auto) Lymph # [place] # Baso # Seg Neutrophils % Seg Neutrophils # PT INR APTT Thrombin Time Sodium 150 H Potassium Chloride 110.1 H Carbon Dioxide BUN 78 H Creatinine 2.3 H Glucose 628 H* POC Glucose 382 H 275 H Calcium Phosphorus Magnesium PTH Intact Urine Creatinine Urine Total Protein 02/27/18 02/27/18 02/27/18 14:30 16:02 16:40 WBC RBC Hgb Hct MCHC RDW Plt Count Lymph % (Auto) Lymph # [place] # Baso # Seg Neutrophils % Seg Neutrophils # PT INR APTT Thrombin Time Sodium 156 H Potassium Chloride 112.6 H Carbon Dioxide BUN 64 H Creatinine 1.7 H Glucose 214 H POC Glucose 249 H 221 H Calcium Phosphorus Magnesium PTH Intact Urine Creatinine Urine Total Protein 02/27/18 02/27/18 02/27/18 17:12 19:10 20:30 WBC RBC Hgb Hct MCHC RDW Plt Count Lymph % (Auto) Lymph # [place] # Baso # Seg Neutrophils % Seg Neutrophils # PT INR APTT Thrombin Time Sodium Potassium Chloride Carbon Dioxide BUN Creatinine Glucose POC Glucose 235 H 187 H 108 H Calcium Phosphorus Magnesium PTH Intact Urine Creatinine Urine Total Protein 02/27/18 02/27/18 02/27/18 21:30 22:43 23:48 WBC RBC Hgb Hct MCHC RDW Plt Count Lymph % (Auto) Lymph # [place] # Baso # Seg Neutrophils % Seg Neutrophils # PT INR APTT Thrombin Time Sodium Potassium Chloride Carbon Dioxide BUN Creatinine Glucose POC Glucose 134 H 212 H 227 H Calcium Phosphorus Magnesium PTH Intact Urine Creatinine Urine Total Protein 02/28/18 02/28/18 02/28/18 00:50 01:27 01:52 WBC RBC Hgb Hct MCHC RDW Plt Count Lymph % (Auto) Lymph # [place] # Baso # Seg Neutrophils % Seg Neutrophils # PT INR APTT Thrombin Time Sodium 147 H D Potassium Chloride Carbon Dioxide BUN 57 H Creatinine Glucose 281 H POC Glucose 260 H 241 H Calcium Phosphorus Magnesium PTH Intact Urine Creatinine Urine Total Protein 02/28/18 02/28/18 02/28/18 02:52 03:55 04:05 WBC RBC Hgb Hct MCHC RDW Plt Count Lymph % (Auto) Lymph # [place] # Baso # Seg Neutrophils % Seg Neutrophils # PT INR APTT Thrombin Time Sodium Potassium Chloride Carbon Dioxide BUN Creatinine Glucose POC Glucose 280 H 242 H Calcium Phosphorus Magnesium PTH Intact 265.7 H Urine Creatinine Urine Total Protein 02/28/18 02/28/18 02/28/18 04:05 04:57 06:00 WBC 12.9 H RBC 5.34 H Hgb Hct MCHC RDW Plt Count 116 L Lymph % (Auto) Lymph # [place] # 0.9 H Baso # Seg Neutrophils % 76.2 H Seg Neutrophils # 9.8 H PT INR APTT Thrombin Time Sodium Potassium Chloride Carbon Dioxide BUN Creatinine Glucose POC Glucose 227 H 146 H Calcium Phosphorus Magnesium PTH Intact Urine Creatinine Urine Total Protein 09/05/18 09/05/18 09/05/18 06:54 08:14 10:01 WBC RBC Hgb Hct MCHC RDW Plt Count Lymph % (Auto) Lymph # [place] # Baso # Seg Neutrophils % Seg Neutrophils # PT INR APTT Thrombin Time Sodium Potassium Chloride Carbon Dioxide BUN Creatinine Glucose POC Glucose 134 H 110 H 130 H Calcium Phosphorus Magnesium PTH Intact Urine Creatinine Urine Total Protein 02/28/18 02/28/18 02/28/18 11:03 12:13 12:52 WBC RBC Hgb Hct MCHC RDW Plt Count Lymph % (Auto) Lymph # [place] # Baso # Seg Neutrophils % Seg Neutrophils # PT INR APTT Thrombin Time Sodium Potassium Chloride Carbon Dioxide 17 L D BUN 48 H Creatinine Glucose 245 H POC Glucose 167 H 194 H Calcium 8.2 L Phosphorus Magnesium PTH Intact Urine Creatinine Urine Total Protein 02/28/18 02/28/18 02/28/18 14:05 14:51 17:03 WBC RBC Hgb Hct MCHC RDW Plt Count Lymph % (Auto) Lymph # [place] # Baso # Seg Neutrophils % Seg Neutrophils # PT INR APTT Thrombin Time Sodium Potassium Chloride Carbon Dioxide BUN Creatinine Glucose POC Glucose 207 H 227 H 172 H Calcium Phosphorus Magnesium PTH Intact Urine Creatinine Urine Total Protein 02/28/18 02/28/18 02/28/18 17:24 18:36 20:34 WBC RBC Hgb Hct MCHC RDW Plt Count Lymph % (Auto) Lymph # [place] # Seg Neutrophils % Seg Neutrophils # PT INR APTT Thrombin Time Sodium Potassium Chloride Carbon Dioxide BUN 44 H Creatinine Glucose 163 H POC Glucose 153 H 120 H Calcium Phosphorus Magnesium PTH Intact Urine Creatinine Urine Total Protein 02/28/18 02/28/18 02/28/18 21:55 22:54 22:59 WBC RBC Hgb Hct MCHC RDW Plt Count Lymph % (Auto) Lymph # [place] # Baso # Seg Neutrophils % Seg Neutrophils # PT INR APTT Thrombin Time Sodium Potassium Chloride Carbon Dioxide BUN 40 H Creatinine Glucose 145 H POC Glucose 114 H 122 H Calcium Phosphorus Magnesium PTH Intact Urine Creatinine Urine Total Protein 02/28/18 03/01/18 03/01/18 Unknown 00:00 01:57 WBC RBC Hgb Hct MCHC RDW Plt Count Lymph % (Auto) Lymph # [place] # Baso # Seg Neutrophils % Seg Neutrophils # PT INR APTT Thrombin Time Sodium Potassium 3.5 L D Chloride Carbon Dioxide BUN 39 H Creatinine Glucose 225 H POC Glucose 189 H Calcium 8.2 L Phosphorus Magnesium PTH Intact Urine Creatinine 125.8 H Urine Total Protein 46 H 03/01/18 03/01/18 03/01/18 03:35 04:41 06:36 WBC RBC Hgb Hct MCHC RDW Plt Count Lymph % (Auto) Lymph # [place] # Baso # Seg Neutrophils % Seg Neutrophils # PT INR APTT Thrombin Time Sodium 134 L Potassium Chloride Carbon Dioxide 17 L D BUN 38 H 27 H Creatinine Glucose 256 H 279 H POC Glucose 239 H Calcium 8.2 L 8.3 L Phosphorus 1.90 L Magnesium PTH Intact Urine Creatinine Urine Total Protein 03/01/18 03/01/18 07:49 09:40 WBC RBC Hgb Hct MCHC RDW Plt Count Lymph % (Auto) Lymph # [place] # Baso # Seg Neutrophils % Seg Neutrophils # PT INR APTT Thrombin Time Sodium 135 L Potassium Chloride Carbon Dioxide BUN 37 H Creatinine Glucose 354 H POC Glucose 281 H Calcium 7.9 L Phosphorus Magnesium PTH Intact Urine Creatinine Urine Total Protein Allied health notes reviewed: nursing
[2018-03-01] MEDS ORDERED: LANTUS SUB-Q SCH (11:37)
--- NOTE | 2018-03-01 12:07 | Progress Note ---
Assessment and Plan Acute on Chronic Kidney Disease likely secondary to Diabetic Nephropathy and Hypertensive Nephrosclerosis: -kidney function cont to improve, good UOP -Renal ultrasound- mass identified to left kidney and bladder, malignancy cannot be excluded- Urology consult to Dr. Sanchez -Urine lytes-pending -Avoid Nephrotoxic agents -Monitor I/O's -Obtain daily weights -Will continue to monitor renal function closely Diabetic Ketoacidosis: -off Insulin drip -As per primary team Hyperphosphatemia: -resolved, will d/c phos binders Hypertension: -On Amlodipine and Losartan -will d/c triametrene/HCTZ Hypernatremia: -resolved Subjective Date of service: 03/01/18 Principal diagnosis: Hyperosmolar hyperglycemic State; PILI on CKD Interval history: feels better this AM Objective - Vital Signs Vital signs: Vital Signs - 12hr 03/01/18 03/01/18 03/01/18 00:31 01:00 01:31 Temperature Pulse Rate 78 74 74 Pulse Rate [ From Monitor] Respiratory Rate Blood Pressure 151/80 125/83 125/83 O2 Sat by Pulse Oximetry 03/01/18 03/01/18 03/01/18 02:00 02:27 02:31 Temperature Pulse Rate 70 77 Pulse Rate [ 72 From Monitor] Respiratory 18 Rate Blood Pressure 118/65 118/65 O2 Sat by Pulse Oximetry 03/01/18 03/01/18 03/01/18 03:00 03:30 04:01 Temperature Pulse Rate 73 69 77 Pulse Rate [ From Monitor] Respiratory Rate Blood Pressure 118/65 81/49 87/70 O2 Sat by Pulse Oximetry 03/01/18 03/01/18 03/01/18 04:31 05:01 07:47 Temperature Pulse Rate 79 73 70 Pulse Rate [ From Monitor] Respiratory Rate Blood Pressure 81/49 87/70 87/70 O2 Sat by Pulse Oximetry 03/01/18 03/01/18 03/01/18 08:00 08:31 08:44 Temperature 97.6 F Pulse Rate 72 78 Pulse Rate [ From Monitor] Respiratory Rate Blood Pressure 102/66 102/66 O2 Sat by Pulse 97 96 97 Oximetry 03/01/18 03/01/18 03/01/18 09:01 09:31 10:00 Temperature Pulse Rate 78 87 88 Pulse Rate [ 82 From Monitor] Respiratory 15 18 23 Rate Blood Pressure 140/75 102/66 129/70 O2 Sat by Pulse 97 98 Oximetry 03/01/18 03/01/18 03/01/18 10:31 11:00 11:31 Temperature Pulse Rate 86 83 79 Pulse Rate [ From Monitor] Respiratory 28 H 18 19 Rate Blood Pressure 129/70 104/77 104/77 O2 Sat by Pulse 98 94 98 Oximetry 03/01/18 12:00 Temperature Pulse Rate 76 Pulse Rate [ From Monitor] Respiratory 13 Rate Blood Pressure 96/75 O2 Sat by Pulse 97 Oximetry - General Appearance General appearance: well-developed, well-nourished, appears stated age EENT: ATNC, PERRL, mucous membranes moist Neck: no JVD, no carotid bruit Respiratory: Present: Clear to Ascultation. Absent: Rales, Ronchi Cardiology: regular, S1S2 Gastrointestinal: normoactive bowel sounds, no absent bowel sounds, no tenderness Integumentary: no rash, warm and dry Neurologic: no focal deficit, no asterixis, alert and oriented x3 Musculoskeletal: other (no edema in BLE) Psychiatric: mood/affect appropriate, cooperative - Lab 02/28/18 04:05 03/01/18 09:40 Most recent lab results Calcium 7.9 mg/dL (8.4-10.2) L 03/01/18 09:40 Phosphorus 1.90 mg/dL (2.5-4.5) L 03/01/18 04:41 Magnesium 3.80 mg/dL (1.7-2.3) H 02/27/18 01:26 Urine Creatinine 125.8 mg/dL (0.1-20.0) H 02/28/18 Unknown Urine Sodium 66 mmol/L 02/28/18 Unknown Urine Total Protein 46 mg/dL (5-11.8) H 02/28/18 Unknown
[2018-03-01] MEDS ORDERED: SODIUM PHOSPHATE 30 MMOL in NACL 0.9% 500 ML 500 ML IV ONE (13:00)
--- NOTE | 2018-03-01 16:40 | Event Note ---
Date: 03/01/18 62 year old male with large left renal mass. Reviewed CT without contrast and mass appears to be solid. US demonstrates no cystic component. CT also demonstrates small vessels around the posterior inferior part of the mass suggesting vascular recruitment. Suspect RCC. Recommend CT with IV contrast with renal mass protocol to confirm RCC. If cannot perform CT, then recommend MRI with contrast with renal mass protocol. If cannot perform CT or MRI, then can consider CT guided biopsy, but do not recommend CT guided biopsy. RCC are hypervascular masses and biopsy can result in bleeding and seeding. Risks of CT or MRI are much less than biopsy.
--- NOTE | 2018-03-01 16:54 | Progress Note ---
Subjective Date of service: 03/01/18 Principal diagnosis: Hyperosmolar hyperglycemic State; PILI on CKD Interval history: This is a 62 year old male who presents to the E.R with a chief complaint of generalized weakness present for 3 weeks and slurred speech. On evaluation patient was found to be in Diabetic Ketoacidosis with an elevated glucose level of 1178. Patient was started on insulin drip. Patient states he is unaware that he is a diabetic and states he had a physical 3-[address] Barger and was not informed of having any Diabetes. States he was aware of having Hypertension which has been present for over [address] of head was negative for any acute findings. Additional pertinent labs reviewed revealed an elevated serum creatinine of 2.7. Baseline serum creatinine unknown. We are being consulted for management of this patient's Acute on Chronic Kidney Disease. renal us suggest kidney mass CTAP(NO CONTRAST) -mass appears to be solid. US demonstrates no cystic component. a/p kidney mass - LEFT LOWER POLE POORLY CONTROLLED DIABETES (glucose 300's) need CT WITH CONTRAST (RENAL MASS PROTOCOL) Will defer timing of CT with contrast to nephrology due to risk to kidney (discussed with Drs. Abreu & Jc) Objective - Constitutional Vitals: Vital Signs - 12hr 03/01/18 03/01/18 03/01/18 05:01 07:47 08:00 Temperature 97.6 F Pulse Rate 73 70 72 Pulse Rate [ From Monitor] Respiratory Rate Blood Pressure 87/70 87/70 102/66 O2 Sat by Pulse 97 Oximetry 03/01/18 03/01/18 03/01/18 08:31 08:44 09:01 Temperature Pulse Rate 78 78 Pulse Rate [ From Monitor] Respiratory 15 Rate Blood Pressure 102/66 140/75 O2 Sat by Pulse 96 97 Oximetry 03/01/18 03/01/18 03/01/18 09:31 10:00 10:31 Temperature Pulse Rate 87 88 86 Pulse Rate [ 82 From Monitor] Respiratory 18 23 28 H Rate Blood Pressure 102/66 129/70 129/70 O2 Sat by Pulse 97 98 98 Oximetry 03/01/18 03/01/18 03/01/18 11:00 11:31 12:00 Temperature Pulse Rate 83 79 76 Pulse Rate [ From Monitor] Respiratory 18 19 13 Rate Blood Pressure 104/77 104/77 96/75 O2 Sat by Pulse 94 98 97 Oximetry 03/01/18 03/01/18 03/01/18 12:31 13:00 14:00 Temperature Pulse Rate 85 84 Pulse Rate [ 82 From Monitor] Respiratory 16 16 Rate Blood Pressure 96/75 102/75 O2 Sat by Pulse 98 Oximetry 03/01/18 03/01/18 03/01/18 14:39 15:01 15:31 Temperature Pulse Rate 83 75 80 Pulse Rate [ From Monitor] Respiratory 15 13 Rate Blood Pressure 102/75 139/70 139/70 O2 Sat by Pulse Oximetry - Labs CBC & Chem 7: 02/28/18 04:05 03/01/18 09:40 Labs: Abnormal lab results 02/28/18 02/28/18 02/28/18 Range/Units 17:03 17:24 18:36 Sodium (137-145) mmol/L Potassium (3.6-5.0) mmol/L Carbon Dioxide (22-30) mmol/L BUN 44 H (9-20) mg/dL Glucose 163 H (75-100) mg/dL POC Glucose 172 H 153 H (70-105) Hemoglobin A1c (4-6) % Calcium (8.4-10.2) mg/dL Phosphorus (2.5-4.5) mg/dL 02/28/18 02/28/18 02/28/18 Range/Units 20:34 21:55 22:54 Sodium (137-145) mmol/L Potassium (3.6-5.0) mmol/L Carbon Dioxide (22-30) mmol/L BUN 40 H (9-20) mg/dL Glucose 145 H (75-100) mg/dL POC Glucose 120 H 114 H (70-105) Hemoglobin A1c (4-6) % Calcium (8.4-10.2) mg/dL Phosphorus (2.5-4.5) mg/dL 02/28/18 03/01/18 03/01/18 Range/Units 22:59 00:00 01:57 Sodium (137-145) mmol/L Potassium 3.5 L D (3.6-5.0) mmol/L Carbon Dioxide (22-30) mmol/L BUN 39 H (9-20) mg/dL Glucose 225 H (75-100) mg/dL POC Glucose 122 H 189 H (70-105) Hemoglobin A1c (4-6) % Calcium 8.2 L (8.4-10.2) mg/dL Phosphorus (2.5-4.5) mg/dL 03/01/18 03/01/18 03/01/18 Range/Units 03:35 04:41 06:36 Sodium 134 L (137-145) mmol/L Potassium (3.6-5.0) mmol/L Carbon Dioxide 17 L D (22-30) mmol/L BUN 38 H 27 H (9-20) mg/dL Glucose 256 H 279 H (75-100) mg/dL POC Glucose 239 H (70-105) Hemoglobin A1c (4-6) % Calcium 8.2 L 8.3 L (8.4-10.2) mg/dL Phosphorus 1.90 L (2.5-4.5) mg/dL 03/01/18 03/01/18 03/01/18 Range/Units 07:49 09:40 10:37 Sodium 135 L (137-145) mmol/L Potassium (3.6-5.0) mmol/L Carbon Dioxide (22-30) mmol/L BUN 37 H (9-20) mg/dL Glucose 354 H (75-100) mg/dL POC Glucose 281 H (70-105) Hemoglobin A1c 16.0 H (4-6) % Calcium 7.9 L (8.4-10.2) mg/dL Phosphorus (2.5-4.5) mg/dL 03/01/18 Range/Units 12:01 Sodium (137-145) mmol/L Potassium (3.6-5.0) mmol/L Carbon Dioxide (22-30) mmol/L BUN (9-20) mg/dL Glucose (75-100) mg/dL POC Glucose 326 H (70-105) Hemoglobin A1c (4-6) % Calcium (8.4-10.2) mg/dL Phosphorus (2.5-4.5) mg/dL
[2018-03-01 17:43] LABS: BUN/Creatinine Ratio 30; Blood Urea Nitrogen 36 mg/dL (9-20); Calcium 8.2 mg/dL (8.4-10.2); Hemolysis Index 82
[2018-03-01 21:37] LABS: BUN/Creatinine Ratio 31; Blood Urea Nitrogen 37 mg/dL (9-20); Calcium 8.2 mg/dL (8.4-10.2); Hemolysis Index 12
[2018-03-01] MEDS: PRAVACHOL PO SCH (22:57)
[2018-03-02] MEDS: HumaLOG SUB-Q SCH ×7 (07:30→22:29)
[2018-03-02] MEDS: HEPARIN SUB-Q SCH ×2 (09:50→22:30)
[2018-03-02] MEDS: NORVASC PO SCH (10:00)
[2018-03-02] MEDS: COZAAR PO SCH (10:00)
[2018-03-02] MEDS ORDERED: LANTUS SUB-Q SCH (11:17)
--- NOTE | 2018-03-02 11:26 | Progress Note ---
Assessment and Plan Acute on Chronic Kidney Disease likely secondary to Diabetic Nephropathy and Hypertensive Nephrosclerosis: -Renal function reviewed. Serum creatinine trend down to 1.2 yesterday. Ordered BMP level for today -Renal ultrasound- mass identified to left kidney and bladder, malignancy cannot be excluded- Urology onboard -Avoid Nephrotoxic agents -Monitor I/O's -Obtain daily weights -Will continue to monitor renal function closely Left Kidney Mass: -Urology onboard -Would like to obtain Ct scan with contrast when renal function is better -Obtain BMP level today and in a.m Diabetic Ketoacidosis: -S/P Insulin drip -Now on sliding scale insulin -As per primary team Hyperphosphatemia: -Resolved -Renvela discontinued -Monitor phosphorus and PTH levels Hypertension: -On Amlodipine and Losartan -Adjust regimen as needed Hypernatremia: -Resolved Subjective Date of service: 03/02/18 Principal diagnosis: Hyperosmolar hyperglycemic State; PILI on CKD Interval history: patient seen sitting up in bed eating lunch. Family at bedside. Objective - Vital Signs Vital signs: Vital Signs - 12hr 03/02/18 03/02/18 06:32 10:00 Temperature 98.8 F Pulse Rate 72 Respiratory 18 Rate Blood Pressure 112/75 O2 Sat by Pulse 97 97 Oximetry - General Appearance General appearance: well-developed, appears stated age, fatigue EENT: ATNC, PERRL, hearing intact, vision intact Neck: no JVD, supple Respiratory: Present: Clear to Ascultation Cardiology: regular, S1S2 Gastrointestinal: normoactive bowel sounds Integumentary: warm and dry Neurologic: alert and oriented x3 Musculoskeletal: other (Has mild edema to right leg) Psychiatric: mood/affect appropriate - Lab 02/28/18 04:05 03/01/18 21:06 Most recent lab results Calcium 8.2 mg/dL (8.4-10.2) L 03/01/18 21:06 Phosphorus 1.90 mg/dL (2.5-4.5) L 03/01/18 04:41 Magnesium 3.80 mg/dL (1.7-2.3) H 02/27/18 01:26 Urine Creatinine 125.8 mg/dL (0.1-20.0) H 02/28/18 Unknown Urine Sodium 66 mmol/L 02/28/18 Unknown Urine Total Protein 46 mg/dL (5-11.8) H 02/28/18 Unknown
[2018-03-02 14:23] LABS: Hemolysis Index 0
[2018-03-02 14:36] LABS: BUN/Creatinine Ratio 29; Blood Urea Nitrogen 29 mg/dL (9-20); Calcium 8.2 mg/dL (8.4-10.2)
--- NOTE | 2018-03-02 18:06 | Progress Note ---
Assessment and Plan Assessment and plan: DKA, new onset DM continue insulin drip, will transition to sq when he improves Hypernatremia -continue IVF, encourage PO water intake PILI- vasomotor nephropathy continue IVF, improving left renal mass -awaiting renal function to improve to do CT with contrast, urology on board hx of DVT- year ago History Interval history: Review of systems Constitutional: No fevers, no malaise, no joint pains CVS: No chest pain, no orthopnea, no dyspnea on exertion, no pedal edema GI: No abdominal pain, no diarrhea, no vomiting, no constipation Respiratory: No shortness of breath, no wheezing, no coughing Hospitalist Physical - Physical exam Narrative exam: General.: Appears well, no distress, nontoxic HEENT: Moist mucous membranes, extraocular muscles intact, no lymphadenopathy Neck: supple Cardiac: S1-S2 heard Lungs: clear to auscultation bilaterally Abdomen: soft , nontender, nondistended, bowel sounds positive Extremities: no edema clubbing or cyanosis, right lower extremity with chronic skin changes, skin thickening and hyperpigmentation Skin: no rash or lesions Neurologic: no gross focal deficits Psych: appropriate behavior, appropriate mood, corporative, judgment intact - Constitutional Vitals: Temp Pulse Resp BP Pulse Ox 98.0 F 74 20 114/73 94 03/02/18 10:56 03/02/18 10:56 03/02/18 10:56 03/02/18 10:56 03/02/18 10:56 Results - Labs CBC & Chem 7: 02/28/18 04:05 03/04/18 07:07 Labs: Laboratory Last Values WBC 12.9 K/mm3 (4.5-11.0) H 02/28/18 04:05 RBC 5.34 M/mm3 (3.65-5.03) H 02/28/18 04:05 Hgb 14.9 gm/dl (11.8-15.2) 02/28/18 04:05 Hct 45.4 % (35.5-45.6) 02/28/18 04:05 MCV 85 fl (84-94) 02/28/18 04:05 MCH 28 pg (28-32) 02/28/18 04:05 MCHC 33 % (32-34) 02/28/18 04:05 RDW 14.1 % (13.2-15.2) 02/28/18 04:05 Plt Count 116 K/mm3 (140-440) L 02/28/18 04:05 Lymph % (Auto) 16.2 % (13.4-35.0) 02/28/18 04:05 [place] % (Auto) 7.1 % (0.0-7.3) 02/28/18 04:05 Eos % (Auto) 0.3 % (0.0-4.3) 02/28/18 04:05 Baso % (Auto) 0.2 % (0.0-1.8) 02/28/18 04:05 Lymph # 2.1 K/mm3 (1.2-5.4) 02/28/18 04:05 [place] # 0.9 K/mm3 (0.0-0.8) H 02/28/18 04:05 Eos # 0.0 K/mm3 (0.0-0.4) 02/28/18 04:05 Baso # 0.0 K/mm3 (0.0-0.1) 02/28/18 04:05 Seg Neutrophils % 76.2 % (40.0-70.0) H 02/28/18 04:05 Seg Neutrophils # 9.8 K/mm3 (1.8-7.7) H 02/28/18 04:05 PT 16.2 Sec. (12.2-14.9) H 02/27/18 00:34 INR 1.25 (0.87-1.13) H 02/27/18 00:34 APTT 21.0 Sec. (24.2-36.6) L 02/27/18 00:34 Thrombin Time 20.9 Sec. (15.1-19.6) H 02/27/18 00:34 Sodium 133 mmol/L (137-145) L 03/02/18 13:14 Potassium 3.9 mmol/L (3.6-5.0) 03/02/18 13:14 Chloride 97.4 mmol/L (98-107) L 03/02/18 13:14 Carbon Dioxide 19 mmol/L (22-30) L 03/02/18 13:14 Anion Gap 21 mmol/L 03/02/18 13:14 BUN 29 mg/dL (9-20) H 03/02/18 13:14 Creatinine 1.0 mg/dL (0.8-1.5) 03/02/18 13:14 Estimated GFR > 60 ml/min 03/02/18 13:14 BUN/Creatinine Ratio 29 % 03/02/18 13:14 Glucose 116 mg/dL (75-100) H 03/02/18 13:14 POC Glucose 232 (70-105) H 03/02/18 16:10 Hemoglobin A1c 16.0 % (4-6) H 03/01/18 10:37 Calcium 8.2 mg/dL (8.4-10.2) L 03/02/18 13:14 Phosphorus 1.90 mg/dL (2.5-4.5) L 03/01/18 04:41 Magnesium 3.80 mg/dL (1.7-2.3) H 02/27/18 01:26 Troponin T 0.015 ng/mL (0.00-0.029) 02/26/18 23:25 PTH Intact 265.7 pg/mL (15-65) H 02/28/18 04:05 Urine Color Straw (Yellow) 02/27/18 01:02 Urine Turbidity Clear (Clear) 02/27/18 01:02 Urine pH 5.0 (5.0-7.0) 02/27/18 01:02 Ur Specific [place] 1.024 (1.003-1.030) 02/27/18 01:02 Urine Protein <15 mg/dl mg/dL (Negative) 02/27/18 01:02 Urine Glucose (UA) >=500 mg/dL (Negative) 02/27/18 01:02 Urine Ketones Tr mg/dL (Negative) 02/27/18 01:02 Urine Blood Sm (Negative) 02/27/18 01:02 Urine Nitrite Neg (Negative) 02/27/18 01:02 Urine Bilirubin Neg (Negative) 02/27/18 01:02 Urine Urobilinogen < 2.0 mg/dL (<2.0) 02/27/18 01:02 Ur Leukocyte Esterase Neg (Negative) 02/27/18 01:02 Urine WBC (Auto) 2.0 /HPF (0.0-6.0) 02/27/18 01:02 Urine RBC (Auto) 7.0 /HPF (0.0-6.0) 02/27/18 01:02 U Epithel Cells (Auto) < 1.0 /HPF (0-13.0) 02/27/18 01:02 Urine Yeast (Budding) Few /HPF 02/27/18 01:02 Urine Creatinine 125.8 mg/dL (0.1-20.0) H 02/28/18 Unknown Urine Sodium 66 mmol/L 02/28/18 Unknown Urine Total Protein 46 mg/dL (5-11.8) H 02/28/18 Unknown
--- NOTE | 2018-03-02 18:59 | Progress Note ---
Assessment and Plan - Patient Problems (1) DKA (diabetic ketoacidoses) Current Visit: Yes Status: Acute (2) Acute renal failure Current Visit: Yes Status: Acute (3) Hyperkalemia Current Visit: Yes Status: Acute Subjective Date of service: 03/02/18 Principal diagnosis: Hyperosmolar hyperglycemic State; PILI on CKD Objective Vital Signs - 12hr 03/02/18 03/02/18 03/02/18 10:00 10:56 17:15 Temperature 98.0 F 98.0 F Pulse Rate 74 Respiratory 20 20 Rate Blood Pressure 114/73 117/76 O2 Sat by Pulse 97 94 Oximetry CBC and BMP: 02/28/18 04:05 03/02/18 13:14 ABG, PT/INR, D-dimer: PT/INR, D-dimer PT 16.2 Sec. (12.2-14.9) H 02/27/18 00:34 INR 1.25 (0.87-1.13) H 02/27/18 00:34 Abnormal lab findings: Abnormal Labs 02/26/18 02/26/18 02/27/18 23:25 23:25 00:34 WBC 14.6 H RBC 5.60 H Hgb 15.5 H Hct 50.1 H MCHC 30 L RDW 15.9 H Plt Count Lymph % (Auto) 4.6 L Lymph # 0.7 L [place] # 1.0 H Baso # 0.2 H Seg Neutrophils % 87.3 H Seg Neutrophils # 12.7 H PT 16.2 H INR 1.25 H APTT 21.0 L Thrombin Time 20.9 H Sodium 131 L Potassium 6.0 H Chloride 85.5 L Carbon Dioxide 15 L BUN 84 H Creatinine 2.7 H Glucose 1178 H* POC Glucose Hemoglobin A1c Calcium Phosphorus Magnesium PTH Intact Urine Creatinine Urine Total Protein 02/27/18 02/27/18 02/27/18 01:26 01:26 03:43 WBC RBC Hgb Hct MCHC RDW Plt Count Lymph % (Auto) Lymph # [place] # Baso # Seg Neutrophils % Seg Neutrophils # PT INR APTT Thrombin Time Sodium 133 L Potassium 5.6 H Chloride 87.4 L Carbon Dioxide 18 L BUN 86 H Creatinine 2.7 H Glucose 1142 H* POC Glucose > 500 H Hemoglobin A1c Calcium Phosphorus 5.90 H Magnesium 3.80 H PTH Intact Urine Creatinine Urine Total Protein 02/27/18 02/27/18 02/27/18 03:49 05:30 07:44 WBC RBC Hgb Hct MCHC RDW Plt Count Lymph % (Auto) Lymph # [place] # Baso # Seg Neutrophils % Seg Neutrophils # PT INR APTT Thrombin Time Sodium 148 H Potassium Chloride 107.4 H Carbon Dioxide BUN 81 H 81 H 79 H Creatinine 2.3 H 2.3 H 2.3 H Glucose 942 H* 811 H* 731 H* POC Glucose Hemoglobin A1c Calcium Phosphorus Magnesium PTH Intact Urine Creatinine Urine Total Protein 02/27/18 02/27/18 02/27/18 08:47 11:27 13:19 WBC RBC Hgb Hct MCHC RDW Plt Count Lymph % (Auto) Lymph # [place] # Baso # Seg Neutrophils % Seg Neutrophils # PT INR APTT Thrombin Time Sodium 150 H Potassium Chloride 110.1 H Carbon Dioxide BUN 78 H Creatinine 2.3 H Glucose 628 H* POC Glucose 382 H 275 H Hemoglobin A1c Calcium Phosphorus Magnesium PTH Intact Urine Creatinine Urine Total Protein 02/27/18 02/27/18 02/27/18 14:30 16:02 16:40 WBC RBC Hgb Hct MCHC RDW Plt Count Lymph % (Auto) Lymph # [place] # Baso # Seg Neutrophils % Seg Neutrophils # PT INR APTT Thrombin Time Sodium 156 H Potassium Chloride 112.6 H Carbon Dioxide BUN 64 H Creatinine 1.7 H Glucose 214 H POC Glucose 249 H 221 H Hemoglobin A1c Calcium Phosphorus Magnesium PTH Intact Urine Creatinine Urine Total Protein 02/27/18 02/27/18 02/27/18 17:12 19:10 20:30 WBC RBC Hgb Hct MCHC RDW Plt Count Lymph % (Auto) Lymph # [place] # Baso # Seg Neutrophils % Seg Neutrophils # PT INR APTT Thrombin Time Sodium Potassium Chloride Carbon Dioxide BUN Creatinine Glucose POC Glucose 235 H 187 H 108 H Hemoglobin A1c Calcium Phosphorus Magnesium PTH Intact Urine Creatinine Urine Total Protein 02/27/18 02/27/18 02/27/18 21:30 22:43 23:48 WBC RBC Hgb Hct MCHC RDW Plt Count Lymph % (Auto) Lymph # [place] # Baso # Seg Neutrophils % Seg Neutrophils # PT INR APTT Thrombin Time Sodium Potassium Chloride Carbon Dioxide BUN Creatinine Glucose POC Glucose 134 H 212 H 227 H Hemoglobin A1c Calcium Phosphorus Magnesium PTH Intact Urine Creatinine Urine Total Protein 02/28/18 02/28/18 02/28/18 00:50 01:27 01:52 WBC RBC Hgb Hct MCHC RDW Plt Count Lymph % (Auto) Lymph # [place] # Baso # Seg Neutrophils % Seg Neutrophils # PT INR APTT Thrombin Time Sodium 147 H D Potassium Chloride Carbon Dioxide BUN 57 H Creatinine Glucose 281 H POC Glucose 260 H 241 H Hemoglobin A1c Calcium Phosphorus Magnesium PTH Intact Urine Creatinine Urine Total Protein 02/28/18 02/28/18 02/28/18 02:52 03:55 04:05 WBC RBC Hgb Hct MCHC RDW Plt Count Lymph % (Auto) Lymph # [place] # Baso # Seg Neutrophils % Seg Neutrophils # PT INR APTT Thrombin Time Sodium Potassium Chloride Carbon Dioxide BUN Creatinine Glucose POC Glucose 280 H 242 H Hemoglobin A1c Calcium Phosphorus Magnesium PTH Intact 265.7 H Urine Creatinine Urine Total Protein 02/28/18 02/28/18 02/28/18 04:05 04:57 06:00 WBC 12.9 H RBC 5.34 H Hgb Hct MCHC RDW Plt Count 116 L Lymph % (Auto) Lymph # [place] # 0.9 H Baso # Seg Neutrophils % 76.2 H Seg Neutrophils # 9.8 H PT INR APTT Thrombin Time Sodium Potassium Chloride Carbon Dioxide BUN Creatinine Glucose POC Glucose 227 H 146 H Hemoglobin A1c Calcium Phosphorus Magnesium PTH Intact Urine Creatinine Urine Total Protein 02/28/18 02/28/18 02/28/18 06:54 08:14 10:01 WBC RBC Hgb Hct MCHC RDW Plt Count Lymph % (Auto) Lymph # [place] # Baso # Seg Neutrophils % Seg Neutrophils # PT INR APTT Thrombin Time Sodium Potassium Chloride Carbon Dioxide BUN Creatinine Glucose POC Glucose 134 H 110 H 130 H Hemoglobin A1c Calcium Phosphorus Magnesium PTH Intact Urine Creatinine Urine Total Protein 02/28/18 02/28/18 02/28/18 11:03 12:13 12:52 WBC RBC Hgb Hct MCHC RDW Plt Count Lymph % (Auto) Lymph # [place] # Baso # Seg Neutrophils % Seg Neutrophils # PT INR APTT Thrombin Time Sodium Potassium Chloride Carbon Dioxide 17 L D BUN 48 H Creatinine Glucose 245 H POC Glucose 167 H 194 H Hemoglobin A1c Calcium 8.2 L Phosphorus Magnesium PTH Intact Urine Creatinine Urine Total Protein 02/28/18 02/28/18 02/28/18 14:05 14:51 17:03 WBC RBC Hgb Hct MCHC RDW Plt Count Lymph % (Auto) Lymph # [place] # [place] # Seg Neutrophils % Seg Neutrophils # PT INR APTT Thrombin Time Sodium Potassium Chloride Carbon Dioxide BUN Creatinine Glucose POC Glucose 207 H 227 H 172 H Hemoglobin A1c Calcium Phosphorus Magnesium PTH Intact Urine Creatinine Urine Total Protein 02/28/18 02/28/18 02/28/18 17:24 18:36 20:34 WBC RBC Hgb Hct MCHC RDW Plt Count Lymph % (Auto) Lymph # [place] # [place] # Seg Neutrophils % Seg Neutrophils # PT INR APTT Thrombin Time Sodium Potassium Chloride Carbon Dioxide BUN 44 H Creatinine Glucose 163 H POC Glucose 153 H 120 H Hemoglobin A1c Calcium Phosphorus Magnesium PTH Intact Urine Creatinine Urine Total Protein 02/28/18 02/28/18 02/28/18 21:55 22:54 22:59 WBC RBC Hgb Hct MCHC RDW Plt Count Lymph % (Auto) Lymph # [place] # [place] # Seg Neutrophils % Seg Neutrophils # PT INR APTT Thrombin Time Sodium Potassium Chloride Carbon Dioxide BUN 40 H Creatinine Glucose 145 H POC Glucose 114 H 122 H Hemoglobin A1c Calcium Phosphorus Magnesium PTH Intact Urine Creatinine Urine Total Protein 02/28/18 03/01/18 03/01/18 Unknown 00:00 01:57 WBC RBC Hgb Hct MCHC RDW Plt Count Lymph % (Auto) Lymph # [place] # [place] # Seg Neutrophils % Seg Neutrophils # PT INR APTT Thrombin Time Sodium Potassium 3.5 L D Chloride Carbon Dioxide BUN 39 H Creatinine Glucose 225 H POC Glucose 189 H Hemoglobin A1c Calcium 8.2 L Phosphorus Magnesium PTH Intact Urine Creatinine 125.8 H Urine Total Protein 46 H 03/01/18 03/01/18 03/01/18 03:35 04:41 06:36 WBC RBC Hgb Hct MCHC RDW Plt Count Lymph % (Auto) Lymph # [place] # Seg Neutrophils % Seg Neutrophils # PT INR APTT Thrombin Time Sodium 134 L Potassium Chloride Carbon Dioxide 17 L D BUN 38 H 27 H Creatinine Glucose 256 H 279 H POC Glucose 239 H Hemoglobin A1c Calcium 8.2 L 8.3 L Phosphorus 1.90 L Magnesium PTH Intact Urine Creatinine Urine Total Protein 03/01/18 03/01/18 03/01/18 07:49 09:40 10:37 WBC RBC Hgb Hct MCHC RDW Plt Count Lymph % (Auto) Lymph # [place] # Seg Neutrophils % Seg Neutrophils # PT INR APTT Thrombin Time Sodium 135 L Potassium Chloride Carbon Dioxide BUN 37 H Creatinine Glucose 354 H POC Glucose 281 H Hemoglobin A1c 16.0 H Calcium 7.9 L Phosphorus Magnesium PTH Intact Urine Creatinine Urine Total Protein 03/01/18 03/01/18 03/01/18 12:01 17:08 17:10 WBC RBC Hgb Hct MCHC RDW Plt Count Lymph % (Auto) Lymph # [place] # Baso # Seg Neutrophils % Seg Neutrophils # PT INR APTT Thrombin Time Sodium 132 L Potassium Chloride Carbon Dioxide 20 L BUN 36 H Creatinine Glucose 279 H POC Glucose 326 H 256 H Hemoglobin A1c Calcium 8.2 L Phosphorus Magnesium PTH Intact Urine Creatinine Urine Total Protein 03/01/18 03/01/18 03/02/18 21:06 21:17 07:54 WBC RBC Hgb Hct MCHC RDW Plt Count Lymph % (Auto) Lymph # [place] # Baso # Seg Neutrophils % Seg Neutrophils # PT INR APTT Thrombin Time Sodium 133 L Potassium 3.5 L Chloride Carbon Dioxide BUN 37 H Creatinine Glucose 209 H POC Glucose 220 H 51 L Hemoglobin A1c Calcium 8.2 L Phosphorus Magnesium PTH Intact Urine Creatinine Urine Total Protein 03/02/18 03/02/18 03/02/18 10:46 13:14 16:10 WBC RBC Hgb Hct MCHC RDW Plt Count Lymph % (Auto) Lymph # [place] # Baso # Seg Neutrophils % Seg Neutrophils # PT INR APTT Thrombin Time Sodium 133 L Potassium Chloride 97.4 L Carbon Dioxide 19 L BUN 29 H Creatinine Glucose 116 H POC Glucose 147 H 232 H Hemoglobin A1c Calcium 8.2 L Phosphorus Magnesium PTH Intact Urine Creatinine Urine Total Protein
--- NOTE | 2018-03-02 20:43 | Event Note ---
Date: 03/02/18 Patient alert, awake. resting on room air.Denies any lung problems. No complaint of chest pain,shortness of breath or cough.O2 saturation 97% on room air. Patients Anion gap closing. Signing off the case. If any pulmonary help needed call us back.
[2018-03-02] MEDS: PRAVACHOL PO SCH (22:29)
[2018-03-03 05:34] LABS: BUN/Creatinine Ratio 22; Blood Urea Nitrogen 24 mg/dL (9-20); Calcium 8.1 mg/dL (8.4-10.2); Hemolysis Index 1
[2018-03-03] MEDS: HumaLOG SUB-Q SCH ×6 (07:30→22:04)
[2018-03-03] MEDS: NORVASC PO SCH (09:40)
[2018-03-03] MEDS: COZAAR PO SCH (09:42)
[2018-03-03] MEDS: HEPARIN SUB-Q SCH ×2 (09:43→22:23)
--- NOTE | 2018-03-03 09:49 | Progress Note ---
Assessment and Plan Acute on Chronic Kidney Disease likely secondary to Diabetic Nephropathy and Hypertensive Nephrosclerosis: -Renal function reviewed. Cr stable. -Renal ultrasound- mass identified to left kidney and bladder, malignancy cannot be excluded- Urology onboard -Avoid Nephrotoxic agents -Monitor I/O's -Obtain daily weights -Will continue to monitor renal function closely Left Kidney Mass: -Urology onboard -Would like to obtain Ct scan with contrast when renal function is better Diabetic Ketoacidosis: -S/P Insulin drip -Now on sliding scale insulin -As per primary team Hyperphosphatemia: -Resolved -Renvela discontinued -Monitor phosphorus and PTH levels Hypertension: -On Amlodipine and Losartan -Adjust regimen as needed Hypernatremia: -Resolved Subjective Date of service: 03/03/18 Principal diagnosis: Hyperosmolar hyperglycemic State; PILI on CKD Interval history: Denies CP, SHOB. Objective - Exam Narrative Exam: General appearance: well-developed, appears stated age, fatigue EENT: ATNC, PERRL, hearing intact, vision intact Neck: no JVD, supple Respiratory: Present: Clear to Ascultation Cardiology: regular, S1S2 Gastrointestinal: normoactive bowel sounds Integumentary: warm and dry Neurologic: alert and oriented x3 Musculoskeletal: other (Has mild edema to right leg) Psychiatric: mood/affect appropriate - Vital Signs Vital signs: Vital Signs - 12hr 03/03/18 03/03/18 03/03/18 00:22 05:18 08:39 Temperature 98.2 F 98.5 F Pulse Rate 73 74 Respiratory 18 18 Rate Blood Pressure 117/67 120/75 O2 Sat by Pulse 98 98 94 Oximetry 03/03/18 03/03/18 09:40 09:42 Temperature Pulse Rate 74 74 Respiratory Rate Blood Pressure O2 Sat by Pulse Oximetry - Lab 02/28/18 04:05 03/03/18 05:04 Most recent lab results Calcium 8.1 mg/dL (8.4-10.2) L 03/03/18 05:04 Phosphorus 1.90 mg/dL (2.5-4.5) L 03/01/18 04:41 Magnesium 3.80 mg/dL (1.7-2.3) H 02/27/18 01:26 Urine Creatinine 125.8 mg/dL (0.1-20.0) H 02/28/18 Unknown Urine Sodium 66 mmol/L 02/28/18 Unknown Urine Total Protein 46 mg/dL (5-11.8) H 02/28/18 Unknown
--- NOTE | 2018-03-03 16:36 | Progress Note ---
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 will give IVF per his recommendation LE edema has hx of DVT- years ago -obtain dopplers of lower extremity History Interval history: Review of systems Constitutional: No fevers, no malaise, no joint pains CVS: No chest pain, no orthopnea, no dyspnea on exertion, c/o bipedal edema GI: No abdominal pain, no diarrhea, no vomiting, no constipation Respiratory: No shortness of breath, no wheezing, no coughing Hospitalist Physical - Physical exam Narrative exam: General.: Appears well, no distress, nontoxic HEENT: Moist mucous membranes, extraocular muscles intact, no lymphadenopathy Neck: supple Cardiac: S1-S2 heard Lungs: clear to auscultation bilaterally Abdomen: soft , nontender, nondistended, bowel sounds positive Extremities: edema of both LE, right lower extremity with chronic skin changes, skin thickening and hyperpigmentation Skin: no rash or lesions Neurologic: no gross focal deficits Psych: appropriate behavior, appropriate mood, corporative, judgment intact - Constitutional Vitals: Temp Pulse Resp BP Pulse Ox 97.9 F 83 20 120/82 99 03/03/18 11:53 03/03/18 11:53 03/03/18 11:53 03/03/18 11:53 03/03/18 11:53 Results - Labs CBC & Chem 7: 02/28/18 04:05 03/04/18 07:07 Labs: Laboratory Last Values WBC 12.9 K/mm3 (4.5-11.0) H 02/28/18 04:05 RBC 5.34 M/mm3 (3.65-5.03) H 02/28/18 04:05 Hgb 14.9 gm/dl (11.8-15.2) 02/28/18 04:05 Hct 45.4 % (35.5-45.6) 02/28/18 04:05 MCV 85 fl (84-94) 02/28/18 04:05 MCH 28 pg (28-32) 02/28/18 04:05 MCHC 33 % (32-34) 02/28/18 04:05 RDW 14.1 % (13.2-15.2) 02/28/18 04:05 Plt Count 116 K/mm3 (140-440) L 02/28/18 04:05 Lymph % (Auto) 16.2 % (13.4-35.0) 02/28/18 04:05 [place] % (Auto) 7.1 % (0.0-7.3) 02/28/18 04:05 Eos % (Auto) 0.3 % (0.0-4.3) 02/28/18 04:05 Baso % (Auto) 0.2 % (0.0-1.8) 02/28/18 04:05 Lymph # 2.1 K/mm3 (1.2-5.4) 02/28/18 04:05 [place] # 0.9 K/mm3 (0.0-0.8) H 02/28/18 04:05 Eos # 0.0 K/mm3 (0.0-0.4) 02/28/18 04:05 Baso # 0.0 K/mm3 (0.0-0.1) 02/28/18 04:05 Seg Neutrophils % 76.2 % (40.0-70.0) H 02/28/18 04:05 Seg Neutrophils # 9.8 K/mm3 (1.8-7.7) H 02/28/18 04:05 PT 16.2 Sec. (12.2-14.9) H 02/27/18 00:34 INR 1.25 (0.87-1.13) H 02/27/18 00:34 APTT 21.0 Sec. (24.2-36.6) L 02/27/18 00:34 Thrombin Time 20.9 Sec. (15.1-19.6) H 02/27/18 00:34 Sodium 137 mmol/L (137-145) 03/03/18 05:04 Potassium 3.3 mmol/L (3.6-5.0) L 03/03/18 05:04 Chloride 100.1 mmol/L (98-107) 03/03/18 05:04 Carbon Dioxide 25 mmol/L (22-30) 03/03/18 05:04 Anion Gap 15 mmol/L 03/03/18 05:04 BUN 24 mg/dL (9-20) H 03/03/18 05:04 Creatinine 1.1 mg/dL (0.8-1.5) 03/03/18 05:04 Estimated GFR > 60 ml/min 03/03/18 05:04 BUN/Creatinine Ratio 22 % 03/03/18 05:04 Glucose 74 mg/dL (75-100) L 03/03/18 05:04 POC Glucose 184 (70-105) H 03/03/18 16:01 Hemoglobin A1c 16.0 % (4-6) H 03/01/18 10:37 Calcium 8.1 mg/dL (8.4-10.2) L 03/03/18 05:04 Phosphorus 1.90 mg/dL (2.5-4.5) L 03/01/18 04:41 Magnesium 3.80 mg/dL (1.7-2.3) H 02/27/18 01:26 Troponin T 0.015 ng/mL (0.00-0.029) 02/26/18 23:25 PTH Intact 265.7 pg/mL (15-65) H 02/28/18 04:05 Urine Color Straw (Yellow) 02/27/18 01:02 Urine Turbidity Clear (Clear) 02/27/18 01:02 Urine pH 5.0 (5.0-7.0) 02/27/18 01:02 Ur Specific [place] 1.024 (1.003-1.030) 02/27/18 01:02 Urine Protein <15 mg/dl mg/dL (Negative) 02/27/18 01:02 Urine Glucose (UA) >=500 mg/dL (Negative) 02/27/18 01:02 Urine Ketones Tr mg/dL (Negative) 02/27/18 01:02 Urine Blood Sm (Negative) 02/27/18 01:02 Urine Nitrite Neg (Negative) 02/27/18 01:02 Urine Bilirubin Neg (Negative) 02/27/18 01:02 Urine Urobilinogen < 2.0 mg/dL (<2.0) 02/27/18 01:02 Ur Leukocyte Esterase Neg (Negative) 02/27/18 01:02 Urine WBC (Auto) 2.0 /HPF (0.0-6.0) 02/27/18 01:02 Urine RBC (Auto) 7.0 /HPF (0.0-6.0) 02/27/18 01:02 U Epithel Cells (Auto) < 1.0 /HPF (0-13.0) 02/27/18 01:02 Urine Yeast (Budding) Few /HPF 02/27/18 01:02 Urine Creatinine 125.8 mg/dL (0.1-20.0) H 02/28/18 Unknown Urine Sodium 66 mmol/L 02/28/18 Unknown Urine Total Protein 46 mg/dL (5-11.8) H 02/28/18 Unknown
[2018-03-03] MEDS ORDERED: K-DUR PO ONE (17:34)
--- NOTE | 2018-03-03 19:37 | Cat Scan Report ---
FINAL REPORT PROCEDURE: CT ABDOMEN PELVIS W CON TECHNIQUE: Computerized axial tomography of the abdomen and pelvis was performed after the IV injection of iodinated nonionic contrast. HISTORY: renal mass COMPARISON: Prior unenhanced CT scan abdomen and pelvis 02/28/2018 FINDINGS: Lower Lung [place]: No focal abnormality seen. Upper Abdomen: There are small, less than 1 centimeter low-density nodules scattered in the right and left lobes of the liver. These are difficult to characterize given their very small size. The may represent cysts although not confirmed with this exam. The gallbladder is contracted. Calcification is seen within the gallbladder suggesting cholelithiasis. Right adrenal gland is unremarkable. There is a 11 millimeter low-density nodule in the left adrenal gland with rapid washout on the delayed image consistent with an adrenal adenoma. Kidneys, Ureters and Urinary bladder: There is a heterogeneous enhancing mass projecting from the lower 3rd of the left kidney suspicious for primary neoplasm of the left kidney. This measures 6.9 x 7.0 centimeters. 5 millimeter renal cortical cysts appears to be visualized in the renal cortex of the midportion of the left kidney anteriorly. The left kidney is otherwise unremarkable. Small renal cortical cyst measuring approximately 7 millimeters suspected in the lower 3rd of the right kidney. There is no hydronephrosis. The ureters are not distended. There is an impression on the urinary bladder secondary to enlarged prostate gland however on the sagittal reconstruction there is additional projection into the base of the urinary bladder measuring 1.4 x 2.2 centimeter. I cannot exclude a secondary mass in the urinary bladder. Retroperitoneum: There is mild aneurysmal dilatation of the infrarenal abdominal aorta measuring approximately 3.5 centimeter AP and 3.4 centimeter transverse. This extends craniocaudal 4.1 centimeter. Moderate amount of mural thrombus is present narrowing the lumen approximately 60 percent. Atherosclerotic changes seen in the proximal right iliac artery without evidence of aneurysm. There is however dilatation of the left common iliac artery measuring 2.4 centimeter. There appears to be mild aneurysmal dilatation with mural thrombus. The vessels remain patent. Nonspecific subcentimeter lymph nodes are seen in the retroperitoneum. No pathologically enlarged lymph nodes are identified. Bowel: Bowel loops are unremarkable. No evidence of bowel obstruction or ascites. There is no free intraperitoneal gas. Reproductive organs: There is nonspecific diffuse prostate enlargement. Other: No acute bony abnormalities are seen. Degenerative changes seen in the lower lumbar spine. IMPRESSION: Abnormal soft tissue mass again visualized lower 3rd left kidney. Malignancy is suspected. Recent ultrasound suggested a solid masses present. Small renal cortical cysts also visualize left kidney. Nonspecific diffuse prostate enlargement. As indicated above there is additional nodular density projecting in the base of the urinary bladder. I cannot exclude 2nd mass in the urinary bladder. There are multiple small, subcentimeter nodular density scattered in the liver. These are difficult to characterize given their small size. They may represent cysts although not confirmed with this exam. Consider follow-up hepatic ultrasound or MRI to evaluate the liver further. Cholelithiasis. Benign-appearing nodular density left adrenal gland suggesting an adrenal adenoma. 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 No leakage is seen.
[2018-03-03] MEDS: LANTUS SUB-Q SCH (22:05)
[2018-03-03] MEDS: PRAVACHOL PO SCH (22:23)
[2018-03-03] MEDS: NACL 0.9% 1000 ML 1,000 ML IV SCH (22:24)
[2018-03-04 07:36] LABS: BUN/Creatinine Ratio 15; Blood Urea Nitrogen 17 mg/dL (9-20); Calcium 8.1 mg/dL (8.4-10.2); Hemolysis Index 2
[2018-03-04] MEDS: HumaLOG SUB-Q SCH ×7 (08:31→22:07)
--- NOTE | 2018-03-04 10:10 | Progress Note ---
Assessment and Plan Acute on Chronic Kidney Disease likely secondary to Diabetic Nephropathy and Hypertensive Nephrosclerosis: -Renal function reviewed. Cr stable. -Renal ultrasound- mass identified to left kidney and bladder, malignancy cannot be excluded- Urology onboard -Avoid Nephrotoxic agents -Monitor I/O's -Obtain daily weights -Will continue to monitor renal function closely Left Kidney Mass: -Urology onboard -Pt had CT chest with contrast to eval. Got pre and post contrast IVFs to prevent YESENIA. Plan for MRI abdomen per primary as well. Diabetic Ketoacidosis: -S/P Insulin drip -Now on sliding scale insulin -As per primary team Hyperphosphatemia: -Resolved -Renvela discontinued -Monitor phosphorus and PTH levels Hypertension: -On Amlodipine. Will d/c losartan for now due to recent contrast. -Adjust regimen as needed Hypernatremia: -Resolved Subjective Date of service: 03/04/18 Principal diagnosis: Hyperosmolar hyperglycemic State; PILI on CKD Interval history: Feels tired. Objective - Exam Narrative Exam: General appearance: well-developed, appears stated age, fatigue EENT: ATNC, PERRL, hearing intact, vision intact Neck: no JVD, supple Respiratory: Present: Clear to Ascultation Cardiology: regular, S1S2 Gastrointestinal: normoactive bowel sounds Integumentary: warm and dry Neurologic: alert and oriented x3 Musculoskeletal: other (Has mild edema to right leg) Psychiatric: mood/affect appropriate - Vital Signs Vital signs: Vital Signs - 12hr 03/03/18 03/04/18 03/04/18 23:43 05:46 08:51 Temperature 98.5 F 98.3 F Pulse Rate 85 81 Respiratory 20 20 Rate Blood Pressure 122/64 146/86 O2 Sat by Pulse 97 98 99 Oximetry - Lab 02/28/18 04:05 03/04/18 07:07 Most recent lab results Calcium 8.1 mg/dL (8.4-10.2) L 03/04/18 07:07 Phosphorus 1.90 mg/dL (2.5-4.5) L 03/01/18 04:41 Magnesium 3.80 mg/dL (1.7-2.3) H 02/27/18 01:26 Urine Creatinine 125.8 mg/dL (0.1-20.0) H 02/28/18 Unknown Urine Sodium 66 mmol/L 02/28/18 Unknown Urine Total Protein 46 mg/dL (5-11.8) H 02/28/18 Unknown
--- NOTE | 2018-03-04 10:18 | Progress Note ---
Assessment and Plan Assessment and plan: DKA, new onset DM continue insulins Hypernatremia -continue IVF, encourage PO water intake -resolved PILI- vasomotor nephropathy continue IVF, improving left renal mass -solid mass confirmed on CT with IV contrast, joel Haines -liver mets? obtain MRI abdomen -case dw oncologist -CT chest reveals GG opacities which could be inflammatory vs malignancy? Acute Left DVT, and chronic R DVT has hx of DVT- years ago -has R chronic DVT and left acute dvt start heparin drip History Interval history: Review of systems Constitutional: No fevers, no malaise, no joint pains CVS: No chest pain, no orthopnea, no dyspnea on exertion, c/o bipedal edema GI: No abdominal pain, no diarrhea, no vomiting, no constipation Respiratory: No shortness of breath, no wheezing, no coughing Hospitalist Physical - Physical exam Narrative exam: General.: Appears well, no distress, nontoxic HEENT: Moist mucous membranes, extraocular muscles intact, no lymphadenopathy Neck: supple Cardiac: S1-S2 heard Lungs: clear to auscultation bilaterally Abdomen: soft , nontender, nondistended, bowel sounds positive Extremities: edema of both LE, right lower extremity with chronic skin changes, skin thickening and hyperpigmentation Skin: no rash or lesions Neurologic: no gross focal deficits Psych: appropriate behavior, appropriate mood, corporative, judgment intact - Constitutional Vitals: Temp Pulse Resp BP Pulse Ox 98.3 F 81 20 146/86 99 03/04/18 05:46 03/04/18 05:46 03/04/18 05:46 03/04/18 05:46 03/04/18 08:51 Results - Labs CBC & Chem 7: 02/28/18 04:05 03/04/18 07:07 Labs: Laboratory Last Values WBC 12.9 K/mm3 (4.5-11.0) H 02/28/18 04:05 RBC 5.34 M/mm3 (3.65-5.03) H 02/28/18 04:05 Hgb 14.9 gm/dl (11.8-15.2) 02/28/18 04:05 Hct 45.4 % (35.5-45.6) 02/28/18 04:05 MCV 85 fl (84-94) 02/28/18 04:05 MCH 28 pg (28-32) 02/28/18 04:05 MCHC 33 % (32-34) 02/28/18 04:05 RDW 14.1 % (13.2-15.2) 02/28/18 04:05 Plt Count 116 K/mm3 (140-440) L 02/28/18 04:05 Lymph % (Auto) 16.2 % (13.4-35.0) 02/28/18 04:05 [place] % (Auto) 7.1 % (0.0-7.3) 02/28/18 04:05 Eos % (Auto) 0.3 % (0.0-4.3) 02/28/18 04:05 Baso % (Auto) 0.2 % (0.0-1.8) 02/28/18 04:05 Lymph # 2.1 K/mm3 (1.2-5.4) 02/28/18 04:05 Lucas # 0.9 K/mm3 (0.0-0.8) H 02/28/18 04:05 Eos # 0.0 K/mm3 (0.0-0.4) 02/28/18 04:05 Baso # 0.0 K/mm3 (0.0-0.1) 02/28/18 04:05 Seg Neutrophils % 76.2 % (40.0-70.0) H 02/28/18 04:05 Seg Neutrophils # 9.8 K/mm3 (1.8-7.7) H 02/28/18 04:05 PT 16.2 Sec. (12.2-14.9) H 02/27/18 00:34 INR 1.25 (0.87-1.13) H 02/27/18 00:34 APTT 21.0 Sec. (24.2-36.6) L 02/27/18 00:34 Thrombin Time 20.9 Sec. (15.1-19.6) H 02/27/18 00:34 Sodium 137 mmol/L (137-145) 03/04/18 07:07 Potassium 4.2 mmol/L (3.6-5.0) D 03/04/18 07:07 Chloride 101.1 mmol/L (98-107) 03/04/18 07:07 Carbon Dioxide 25 mmol/L (22-30) 03/04/18 07:07 Anion Gap 15 mmol/L 03/04/18 07:07 BUN 17 mg/dL (9-20) 03/04/18 07:07 Creatinine 1.1 mg/dL (0.8-1.5) 03/04/18 07:07 Estimated GFR > 60 ml/min 03/04/18 07:07 BUN/Creatinine Ratio 15 % 03/04/18 07:07 Glucose 189 mg/dL (75-100) H 03/04/18 07:07 POC Glucose 173 (70-105) H 03/04/18 07:51 Hemoglobin A1c 16.0 % (4-6) H 03/01/18 10:37 Calcium 8.1 mg/dL (8.4-10.2) L 03/04/18 07:07 Phosphorus 1.90 mg/dL (2.5-4.5) L 03/01/18 04:41 Magnesium 3.80 mg/dL (1.7-2.3) H 02/27/18 01:26 Troponin T 0.015 ng/mL (0.00-0.029) 02/26/18 23:25 PTH Intact 265.7 pg/mL (15-65) H 02/28/18 04:05 Urine Color Straw (Yellow) 02/27/18 01:02 Urine Turbidity Clear (Clear) 02/27/18 01:02 Urine pH 5.0 (5.0-7.0) 02/27/18 01:02 Ur Specific [place] 1.024 (1.003-1.030) 02/27/18 01:02 Urine Protein <15 mg/dl mg/dL (Negative) 02/27/18 01:02 Urine Glucose (UA) >=500 mg/dL (Negative) 02/27/18 01:02 Urine Ketones Tr mg/dL (Negative) 02/27/18 01:02 Urine Blood Sm (Negative) 02/27/18 01:02 Urine Nitrite Neg (Negative) 02/27/18 01:02 Urine Bilirubin Neg (Negative) 02/27/18 01:02 Urine Urobilinogen < 2.0 mg/dL (<2.0) 02/27/18 01:02 Ur Leukocyte Esterase Neg (Negative) 02/27/18 01:02 Urine WBC (Auto) 2.0 /HPF (0.0-6.0) 02/27/18 01:02 Urine RBC (Auto) 7.0 /HPF (0.0-6.0) 02/27/18 01:02 U Epithel Cells (Auto) < 1.0 /HPF (0-13.0) 02/27/18 01:02 Urine Yeast (Budding) Few /HPF 02/27/18 01:02 Urine Creatinine 125.8 mg/dL (0.1-20.0) H 02/28/18 Unknown Urine Sodium 66 mmol/L 02/28/18 Unknown Urine Total Protein 46 mg/dL (5-11.8) H 02/28/18 Unknown
--- NOTE | 2018-03-04 12:02 | Hem/Onc Consultation ---
History of Present Illness - Reason for Consult Consult date: 03/04/18 renal mass - History of Present Illness This is a 62 year old male who was admitted via E.R with a chief complaint of generalized weakness present for a few weeks and slurred speech. On evaluation patient was found to be in Diabetic Ketoacidosis with an elevated glucose level of 1178. Patient was started on insulin drip. Patient states he is unaware that he is a diabetic and states he had a physical 3-[address] Barger and was not informed of having any Diabetes. States he was aware of having Hypertension which has been present for over [address] head was negative for any acute findings. Pt was also found to have elevated serum creatinine of 2.7. During this admission pt was found to have Leukocytosis and Erythrocytosis Radiology showed left renal mass with abn findings in liver - with multiple subcentimeter nodularity a lesion was also found near bladder Past History Past Medical History: diabetes (newly diagnosed), DVT, hypertension, hyperlipidemia Past Surgical History: Other (None reported) Social history: no significant social history Family history: no significant family history Medications and Allergies Allergies Allergy/AdvReac Type Severity Reaction Status Date / Time No Known Allergies Allergy Verified 02/27/18 00:58 Home Medications Medication Instructions Recorded Confirmed Last Taken Type Olmesartan (Nf) 20 mg PO DAILY 02/26/18 02/26/18 Unknown History Pravastatin 40 mg PO DAILY 02/26/18 02/26/18 Unknown History Triamterene-Hctz 75-50 mg Tab 1 tab PO DAILY 02/26/18 02/26/18 Unknown History amLODIPine 10 mg PO DAILY 02/26/18 02/26/18 Unknown History Active Meds: Active Medications Amlodipine Besylate (Norvasc) 10 mg PO DAILY [facility] Last Admin: 03/03/18 09:40 Dose: 10 mg Dextrose (D50w (25gm) Syringe) 0 ml IV PRN PRN PRN Reason: Hypoglycemia Heparin Sodium (Porcine) (Heparin) 5,000 unit SUB-Q Q12HR [facility] Last Admin: 03/03/18 22:23 Dose: 5,000 unit Hydrophilic Ointment (Vaseline Lip Therapy) 1 applic TP DIRECT PRN PRN Reason: DRY LIPS Sodium Chloride (Nacl 0.9% 1000 Ml) 1,000 mls @ 75 mls/hr IV DIRECT ADRIANO Stop: 03/04/18 18:59 Last Admin: 03/03/18 22:24 Dose: 75 mls/hr Insulin Glargine (Lantus) 45 units SUB-Q QHS [facility] Last Admin: 03/03/18 22:05 Dose: Not Given Insulin Human Lispro (Humalog) 0 unit SUB-Q ACHS [facility]; Protocol Last Admin: 03/04/18 08:31 Dose: 3 unit Insulin Human Lispro (Humalog) 10 unit SUB-Q AC [facility] Last Admin: 03/04/18 08:32 Dose: 10 unit Losartan Potassium (Cozaar) 50 mg PO QDAY [facility] Last Admin: 03/03/18 09:42 Dose: 50 mg Pravastatin Sodium (Pravachol) 40 mg PO QHS [facility] Last Admin: 03/03/18 22:23 Dose: 40 mg Review of Systems Constitutional: fatigue (at admission) Ears, nose, mouth and throat: epistaxis Cardiovascular: chest pain Respiratory: hemoptysis Gastrointestinal: vomiting Genitourinary Male: urinary frequency (at admission) Rectal: no bleeding Musculoskeletal: no redness of joints Integumentary: no pruritis Neurological: weakness (at admission) Psychiatric: no memory loss Endocrine: polyuria (at admission) Hematologic/Lymphatic: no easy bruising Allergic/Immunologic: no wheezing Exam - Constitutional Vitals: Last Vital Signs Temp 98.3 F 03/04/18 05:46 Pulse 81 03/04/18 05:46 Resp 20 03/04/18 05:46 BP 146/86 03/04/18 05:46 Pulse Ox 99 03/04/18 08:51 Pain Intensity (0-10): denies any pain General appearance: no acute distress Performance status: 0-fully active - EENT Eyes: PERRL ENT: clear oral mucosa Lymph node exam: negative cervical, negative supraclavicular, negative axillary - Neck Neck: supple - Respiratory Respiratory effort: Positive: normal Respiratory: negative: CTA - Cardiovascular Heart Sounds: Present: S1 & S2 Extremities: No edema - Gastrointestinal General gastrointestinal: Present: soft, non-tender Rectal Exam: deferred - Genitourinary Male genitourinary: Present: deferred - Integumentary Integumentary: warm - Musculoskeletal Musculoskeletal: strength equal bilaterally - Neurologic Neurologic: moves all extremities Results - Labs lab Results: Laboratory Results - last 24 hr 03/03/18 03/03/18 03/03/18 11:57 16:01 21:50 Sodium Potassium Chloride Carbon Dioxide Anion Gap BUN Creatinine Estimated GFR BUN/Creatinine Ratio Glucose POC Glucose 226 H 184 H 73 Calcium 03/04/18 03/04/18 07:07 07:51 Sodium 137 Potassium 4.2 D Chloride 101.1 Carbon Dioxide 25 Anion Gap 15 BUN 17 Creatinine 1.1 Estimated GFR > 60 BUN/Creatinine Ratio 15 Glucose 189 H POC Glucose 173 H Calcium 8.1 L - Imaging and cardiology CT scan - abdomen: report reviewed (renal mass) Assessment and Plan # left renal mass - may be neoplastic in etiology - urology consulted # liver abn - subcentimeter nodularity on CT - report mentions possible neoplastic # Bladder lesion - urology consulted # new DM - was in ICU as admission sugar was >1000 # h/o Leukocytosis and Erythrocytosis # h/o rt leg DVT in past MRI liver ordered We will wait for radiology of liver to see the lesions and review the need and possibility of biopsy.
--- NOTE | 2018-03-04 12:28 | Cat Scan Report ---
FINAL REPORT EXAM: CT CHEST W CON HISTORY: kidney mass, concern of mets TECHNIQUE: CTA of chest with IV contrast. Coronal and sagittal and MIP reconstructed images provided. PRIORS: CT abdomen pelvis March 03, 2018. FINDINGS: Focal areas of ground-glass opacities in the right per lobe along the lateral aspect on series 2:38 in the medial aspects of both upper lobes on series 2:54 linear scarring and discoid subsegmental atelectasis. No soft tissue consolidation. No pneumothorax. No effusion. No endobronchial lesion. Main pulmonary artery is unremarkable. Nonocclusive irregularity along the wall of the right upper lobe bronchi extending into the segmental branch suggestive of embolus. Similar finding noted in the distal right main pulmonary artery extending into the right middle and lower lobe segmental bronchi. Distal left main pulmonary artery filling defects extending into the subsegmental branches of the left upper and lower lobes. No saddle embolus noted. Ascending aorta measures 4.3 cm. Horizontal aorta measures 3.1 cm. Descending aorta measures 0.1 cm. Mild aortic atherosclerotic disease. No dissection. Major branch arteries are unremarkable. [id number] cardiomegaly. Small pericardial effusion may be physiologic. Coronary artery disease. There is no axillary adenopathy. There is no hilar or mediastinal mass or adenopathy. Images of the esophagus are unremarkable. Heterogenous, enlarged thyroid gland. A distinct nodules not evident; however, nodules are not excluded.; indeterminate nodule in the left adrenal gland measures 2.7 x 1.9 cm. Nonspecific subcentimeter low-density lesions in the liver are unchanged compared to the prior. No suspicious osseous lesions on this limited examination of the skeleton. Metastatic disease better evaluated with bone scan. Degenerative changes are present in the spine. IMPRESSION: Ascending aortic aneurysm without dissection. Bilateral pulmonary emboli. Nonspecific ground-glass opacities in both upper lungs. Differential diagnosis includes pneumonia, pneumonitis, and malignancy. Further evaluation with PET-CT scan, biopsy, and or three-month interval follow-up is recommended if clinically indicated. Cardiomegaly and small pericardial effusion. Stable indeterminate left adrenal nodule. Nonspecific hepatic lesions. Similar to prior.
[2018-03-04] MEDS: NACL 0.9% 1000 ML 1,000 ML IV SCH (12:47)
[2018-03-04] MEDS: COZAAR PO SCH (12:47)
[2018-03-04] MEDS: NORVASC PO SCH (12:48)
[2018-03-04] MEDS: HEPARIN SUB-Q SCH (12:48)
[2018-03-04] MEDS ORDERED: HEPARIN 10,000 UNITS/10 ML IV ONE (14:00)
[2018-03-04 14:24] LABS: Hematocrit 40.3 % (35.5-45.6); Hemoglobin 13.1 gm/dl (11.8-15.2)
[2018-03-04 14:35] LABS: INR 0.97 (0.87-1.13)
[2018-03-04 14:43] LABS: Partial Thromboplastin Time 26.9 Sec. (24.2-36.6)
[2018-03-04] MEDS: HEPARIN/ 0.45% NACL-25,000 UNIT/500 ML 25,000 UNIT/500 ML BAG IV SCH (15:24)
[2018-03-04] MEDS: PRAVACHOL PO SCH (22:06)
[2018-03-04] MEDS: LANTUS SUB-Q SCH (22:07)
[2018-03-05] MEDS: HEPARIN/ 0.45% NACL-25,000 UNIT/500 ML 25,000 UNIT/500 ML BAG IV SCH ×2 (04:31→22:43)
[2018-03-05 06:02] LABS: Basophils # (Auto) 0.1 K/mm3 (0.0-0.1); Basophils % (Auto) 0.7 % (0.0-1.8); Eosinophils # (Auto) 0.2 K/mm3 (0.0-0.4); Eosinophils % (Auto) 2.5 % (0.0-4.3); Hematocrit 36.4 % (35.5-45.6); Hemoglobin 12.1 gm/dl (11.8-15.2); Lymphocytes # (Auto) 1.9 K/mm3 (1.2-5.4); Lymphocytes % (Auto) 19.7 % (13.4-35.0); Mean Corpuscular HGB Conc 33 % (32-34); Mean Corpuscular Hemoglobin 28 pg (28-32); Mean Corpuscular Volume 85 fl (84-94); Monocytes # (Auto) 1.3 K/mm3 (0.0-0.8); Monocytes % (Auto) 13.4 % (0.0-7.3); Platelet Count 203 K/mm3 (140-440); Red Blood Count 4.29 M/mm3 (3.65-5.03); Red Cell Distribution Width 13.7 % (13.2-15.2)
[2018-03-05 06:46] LABS: BUN/Creatinine Ratio 13; Blood Urea Nitrogen 12 mg/dL (9-20); Calcium 8.1 mg/dL (8.4-10.2); Hemolysis Index 10
[2018-03-05] MEDS: HumaLOG SUB-Q SCH ×7 (07:45→22:46)
--- NOTE | 2018-03-05 08:42 | Hem/Onc Progress Note ---
Assessment and Plan # left renal mass - may be neoplastic in etiology - urology consulted # liver abn - subcentimeter nodularity on CT - report mentions possible neoplastic # Bladder lesion - urology consulted # new DM - was in ICU as admission sugar was >1000 # h/o Leukocytosis and Erythrocytosis # h/o rt leg DVT in past # CTA - b/l PE and doppler shows left leg DVT - pt on heparin MRI liver ordered We will wait for radiology of liver to see the lesions and review the need and possibility of biopsy. pt would need oral anticoagulation - once biopsy of the mass is done Subjective Date of service: 03/05/18 Principal diagnosis: renal mass Interval history: h/o SOB h/o rt leg DVT many years ago pt had CT chest yesterday Objective - Constitutional Vitals: Last Vital Signs Temp 98.6 F 03/05/18 05:39 Pulse 71 03/05/18 05:39 Resp 20 03/05/18 05:39 BP 166/99 03/05/18 05:39 Pulse Ox 98 03/05/18 05:39 Pain Intensity (0-10): denies any pain General appearance: no acute distress Performance status: 2- selfcare, ambulatory - EENT Eyes: PERRL ENT: clear oral mucosa Lymph node exam: negative cervical, negative supraclavicular - Neck Neck: supple - Respiratory Respiratory effort: Positive: normal Respiratory: negative: CTA - Cardiovascular Heart Sounds: Present: S1 & S2 Extremity abnormal: edema - Gastrointestinal General gastrointestinal: Present: soft, non-tender Rectal Exam: deferred - Genitourinary Male genitourinary: Present: deferred - Integumentary Integumentary: rash (rt leg - chronic ) - Musculoskeletal Musculoskeletal: strength equal bilaterally - Neurologic Neurologic: moves all extremities - Labs Lab Results: Laboratory Results - last 24 hr 03/04/18 03/04/18 03/04/18 12:12 13:26 13:26 WBC RBC Hgb 13.1 Hct 40.3 MCV MCH MCHC RDW Plt Count 160 Lymph % (Auto) [place] % (Auto) Eos % (Auto) Baso % (Auto) Lymph # [place] # Eos # Baso # Seg Neutrophils % Seg Neutrophils # PT 13.4 INR 0.97 APTT 26.9 Heparin Anti-Xa Level Sodium Potassium Chloride Carbon Dioxide Anion Gap BUN Creatinine Estimated GFR BUN/Creatinine Ratio Glucose POC Glucose 176 H Calcium 03/04/18 03/04/18 03/04/18 16:54 20:43 21:55 WBC RBC Hgb Hct MCV MCH MCHC RDW Plt Count Lymph % (Auto) [place] % (Auto) Eos % (Auto) Baso % (Auto) Lymph # [place] # Eos # Baso # Seg Neutrophils % Seg Neutrophils # PT INR APTT Heparin Anti-Xa Level 0.76 H Sodium Potassium Chloride Carbon Dioxide Anion Gap BUN Creatinine Estimated GFR BUN/Creatinine Ratio Glucose POC Glucose 191 H 248 H Calcium 03/05/18 03/05/18 03/05/18 05:43 05:43 05:43 WBC 9.6 RBC 4.29 Hgb 12.1 Hct 36.4 MCV 85 MCH 28 MCHC 33 RDW 13.7 Plt Count 203 Lymph % (Auto) 19.7 [place] % (Auto) 13.4 H Eos % (Auto) 2.5 Baso % (Auto) 0.7 Lymph # 1.9 [place] # 1.3 H Eos # 0.2 Baso # 0.1 Seg Neutrophils % 63.7 Seg Neutrophils # 6.1 PT INR APTT Heparin Anti-Xa Level 0.42 Sodium 138 Potassium 4.1 Chloride 104.5 Carbon Dioxide 23 Anion Gap 15 BUN 12 Creatinine 0.9 Estimated GFR > 60 BUN/Creatinine Ratio 13 Glucose 101 H POC Glucose Calcium 8.1 L 03/05/18 07:12 WBC RBC Hgb Hct MCV MCH MCHC RDW Plt Count Lymph % (Auto) [place] % (Auto) Eos % (Auto) Baso % (Auto) Lymph # [place] # Eos # Baso # Seg Neutrophils % Seg Neutrophils # PT INR APTT Heparin Anti-Xa Level Sodium Potassium Chloride Carbon Dioxide Anion Gap BUN Creatinine Estimated GFR BUN/Creatinine Ratio Glucose POC Glucose 86 Calcium - Imaging and cardiology CT scan - chest: report reviewed
[2018-03-05] MEDS: NORVASC PO SCH (10:41)
--- NOTE | 2018-03-05 12:10 | Progress Note ---
Assessment and Plan Acute on Chronic Kidney Disease likely secondary to Diabetic Nephropathy and Hypertensive Nephrosclerosis: -resolved -Avoid Nephrotoxic agents -Monitor I/O's -Obtain daily weights Left Kidney Mass: -Urology onboard -Pt had CT chest with contrast to eval. Got pre and post contrast IVFs to prevent YESENIA. Plan for MRI abdomen per primary as well. Diabetic Ketoacidosis: -S/P Insulin drip -Now on sliding scale insulin -As per primary team Hyperphosphatemia: -Resolved -Renvela discontinued -Monitor phosphorus and PTH levels Hypertension: -On Amlodipine. -Adjust regimen as needed Hypernatremia: -Resolved will sign off, please re consult if needed Subjective Date of service: 03/05/18 Principal diagnosis: renal mass Interval history: comfortable, denies acute issues overnight Objective - Vital Signs Vital signs: Vital Signs - 12hr 03/05/18 03/05/18 03/05/18 00:41 05:39 10:41 Temperature 98.7 F 98.6 F Pulse Rate 74 71 82 Respiratory 20 20 Rate Blood Pressure 145/94 166/99 149/91 O2 Sat by Pulse 98 98 Oximetry - General Appearance General appearance: well-developed, well-nourished, appears stated age EENT: ATNC, PERRL, mucous membranes moist Neck: no JVD, no carotid bruit Respiratory: Present: Clear to Ascultation Cardiology: regular, S1S2 Gastrointestinal: normoactive bowel sounds, no tenderness, no distended Integumentary: no rash, warm and dry Neurologic: no focal deficit, no asterixis, alert and oriented x3 Musculoskeletal: other (trace pitting edema in BLE) Psychiatric: cooperative - Lab 03/05/18 05:43 03/05/18 05:43 Most recent lab results Calcium 8.1 mg/dL (8.4-10.2) L 03/05/18 05:43 Phosphorus 1.90 mg/dL (2.5-4.5) L 03/01/18 04:41 Magnesium 3.80 mg/dL (1.7-2.3) H 02/27/18 01:26 Urine Creatinine 125.8 mg/dL (0.1-20.0) H 02/28/18 Unknown Urine Sodium 66 mmol/L 02/28/18 Unknown Urine Total Protein 46 mg/dL (5-11.8) H 02/28/18 Unknown
--- NOTE | 2018-03-05 13:06 | Progress Note ---
Subjective Date of service: 03/05/18 Principal diagnosis: renal mass Interval history: This is a 62 year old male who presents to the E.R with a chief complaint of generalized weakness present for 3 weeks and slurred speech. On evaluation patient was found to be in Diabetic Ketoacidosis with an elevated glucose level of 1178. Patient was started on insulin drip. Patient states he is unaware that he is a diabetic and states he had a physical 3-[address] Barger and was not informed of having any Diabetes. States he was aware of having Hypertension which has been present for over [address] of head was negative for any acute findings. Additional pertinent labs reviewed revealed an elevated serum creatinine of 2.7. Baseline serum creatinine unknown. We are being consulted for management of this patient's Acute on Chronic Kidney Disease. renal us suggest kidney mass CTAP(NO CONTRAST) -mass appears to be solid. US demonstrates no cystic component. a/p # left renal mass - may be neoplastic in etiology - # liver abn - subcentimeter nodularity on CT - report mentions possible neoplastic # Bladder lesion (appears to be BPH) # new DM - was in ICU as admission sugar was >1000 # h/o Leukocytosis and Erythrocytosis # h/o rt leg DVT in past # CTA - b/l PE and doppler shows left leg DVT - pt on heparin Is this pt a candidate for nephrectomy? -3 weeks and slurred speech -cardiac risk -pulmonary emboli Objective - Constitutional Vitals: Vital Signs - 12hr 03/05/18 03/05/18 03/05/18 05:39 10:41 12:03 Temperature 98.6 F 98.6 F Pulse Rate 71 82 82 Respiratory 20 20 Rate Blood Pressure 166/99 149/91 154/96 O2 Sat by Pulse 98 100 Oximetry - Labs CBC & Chem 7: 03/05/18 05:43 03/05/18 05:43 Labs: Abnormal lab results 03/04/18 03/04/18 03/04/18 Range/Units 16:54 20:43 21:55 [place] % (Auto) (0.0-7.3) % [place] # (0.0-0.8) K/mm3 Heparin Anti-Xa Level 0.76 H (0.3-0.7) U.I./ml Glucose (75-100) mg/dL POC Glucose 191 H 248 H (70-105) Calcium (8.4-10.2) mg/dL 03/05/18 03/05/18 03/05/18 Range/Units 05:43 05:43 11:02 [place] % (Auto) 13.4 H (0.0-7.3) % [place] # 1.3 H (0.0-0.8) K/mm3 Heparin Anti-Xa Level (0.3-0.7) U.I./ml Glucose 101 H (75-100) mg/dL POC Glucose 212 H (70-105) Calcium 8.1 L (8.4-10.2) mg/dL
[2018-03-05] MEDS: LANTUS SUB-Q SCH (22:43)
[2018-03-05] MEDS: PRAVACHOL PO SCH (22:43)
[2018-03-06 06:59] LABS: Hemoglobin 11.9 gm/dl (11.8-15.2)
--- NOTE | 2018-03-06 07:18 | Progress Note ---
Assessment and Plan Assessment and plan: DKA, new onset DM continue insulins Hypernatremia -continue IVF, encourage PO water intake -resolved PILI- vasomotor nephropathy continue IVF, improving left renal mass -solid mass confirmed on CT with IV contrast, dw Dr Haines -liver mets? obtain MRI abdomen (MRI machine has been out of service for days, awaiting MRI) -case dw oncologist -CT chest reveals GG opacities which could be inflammatory vs malignancy? -after liver MRI, will plan which lesion to biopsy liver vs kidney Acute Left DVT, and chronic R DVT has hx of DVT- years ago -has R chronic DVT and left acute dvt on heparin drip History Interval history: Review of systems Constitutional: No fevers, no malaise, no joint pains CVS: No chest pain, no orthopnea, no dyspnea on exertion, c/o bipedal edema GI: No abdominal pain, no diarrhea, no vomiting, no constipation Respiratory: No shortness of breath, no wheezing, no coughing Hospitalist Physical - Physical exam Narrative exam: General.: Appears well, no distress, nontoxic HEENT: Moist mucous membranes, extraocular muscles intact, no lymphadenopathy Neck: supple Cardiac: S1-S2 heard Lungs: clear to auscultation bilaterally Abdomen: soft , nontender, nondistended, bowel sounds positive Extremities: edema of both LE, right lower extremity with chronic skin changes, skin thickening and hyperpigmentation Skin: no rash or lesions Neurologic: no gross focal deficits Psych: appropriate behavior, appropriate mood, corporative, judgment intact - Constitutional Vitals: Temp Pulse Resp BP Pulse Ox 98.7 F 74 18 122/75 99 03/06/18 04:49 03/06/18 04:49 03/06/18 04:49 03/06/18 05:51 03/06/18 04:49 Results - Labs CBC & Chem 7: 03/06/18 06:26 03/05/18 05:43 Labs: Laboratory Last Values WBC 9.6 K/mm3 (4.5-11.0) 03/05/18 05:43 RBC 4.29 M/mm3 (3.65-5.03) 03/05/18 05:43 Hgb 11.9 gm/dl (11.8-15.2) 03/06/18 06:26 Hct 36.0 % (35.5-45.6) 03/06/18 06:26 MCV 85 fl (84-94) 03/05/18 05:43 MCH 28 pg (28-32) 03/05/18 05:43 MCHC 33 % (32-34) 03/05/18 05:43 RDW 13.7 % (13.2-15.2) 03/05/18 05:43 Plt Count 279 K/mm3 (140-440) 03/06/18 06:26 Lymph % (Auto) 19.7 % (13.4-35.0) 03/05/18 05:43 [place] % (Auto) 13.4 % (0.0-7.3) H 03/05/18 05:43 Eos % (Auto) 2.5 % (0.0-4.3) 03/05/18 05:43 Baso % (Auto) 0.7 % (0.0-1.8) 03/05/18 05:43 Lymph # 1.9 K/mm3 (1.2-5.4) 03/05/18 05:43 [place] # 1.3 K/mm3 (0.0-0.8) H 03/05/18 05:43 Eos # 0.2 K/mm3 (0.0-0.4) 03/05/18 05:43 Baso # 0.1 K/mm3 (0.0-0.1) 03/05/18 05:43 Seg Neutrophils % 63.7 % (40.0-70.0) 03/05/18 05:43 Seg Neutrophils # 6.1 K/mm3 (1.8-7.7) 03/05/18 05:43 PT 13.4 Sec. (12.2-14.9) 03/04/18 13:26 INR 0.97 (0.87-1.13) 03/04/18 13:26 APTT 26.9 Sec. (24.2-36.6) 03/04/18 13:26 Thrombin Time 20.9 Sec. (15.1-19.6) H 02/27/18 00:34 Heparin Anti-Xa Level 0.15 U.I./ml (0.3-0.7) L 03/06/18 06:26 Sodium 138 mmol/L (137-145) 03/05/18 05:43 Potassium 4.1 mmol/L (3.6-5.0) 03/05/18 05:43 Chloride 104.5 mmol/L (98-107) 03/05/18 05:43 Carbon Dioxide 23 mmol/L (22-30) 03/05/18 05:43 Anion Gap 15 mmol/L 03/05/18 05:43 BUN 12 mg/dL (9-20) 03/05/18 05:43 Creatinine 0.9 mg/dL (0.8-1.5) 03/05/18 05:43 Estimated GFR > 60 ml/min 03/05/18 05:43 BUN/Creatinine Ratio 13 % 03/05/18 05:43 Glucose 101 mg/dL (75-100) H 03/05/18 05:43 POC Glucose 208 (70-105) H 03/05/18 21:03 Hemoglobin A1c 16.0 % (4-6) H 03/01/18 10:37 Calcium 8.1 mg/dL (8.4-10.2) L 03/05/18 05:43 Phosphorus 1.90 mg/dL (2.5-4.5) L 03/01/18 04:41 Magnesium 3.80 mg/dL (1.7-2.3) H 02/27/18 01:26 Troponin T 0.015 ng/mL (0.00-0.029) 02/26/18 23:25 PTH Intact 265.7 pg/mL (15-65) H 02/28/18 04:05 Urine Color Straw (Yellow) 02/27/18 01:02 Urine Turbidity Clear (Clear) 02/27/18 01:02 Urine pH 5.0 (5.0-7.0) 02/27/18 01:02 Ur Specific [place] 1.024 (1.003-1.030) 02/27/18 01:02 Urine Protein <15 mg/dl mg/dL (Negative) 02/27/18 01:02 Urine Glucose (UA) >=500 mg/dL (Negative) 02/27/18 01:02 Urine Ketones Tr mg/dL (Negative) 02/27/18 01:02 Urine Blood Sm (Negative) 02/27/18 01:02 Urine Nitrite Neg (Negative) 02/27/18 01:02 Urine Bilirubin Neg (Negative) 02/27/18 01:02 Urine Urobilinogen < 2.0 mg/dL (<2.0) 02/27/18 01:02 Ur Leukocyte Esterase Neg (Negative) 02/27/18 01:02 Urine WBC (Auto) 2.0 /HPF (0.0-6.0) 02/27/18 01:02 Urine RBC (Auto) 7.0 /HPF (0.0-6.0) 02/27/18 01:02 U Epithel Cells (Auto) < 1.0 /HPF (0-13.0) 02/27/18 01:02 Urine Yeast (Budding) Few /HPF 02/27/18 01:02 Urine Creatinine 125.8 mg/dL (0.1-20.0) H 02/28/18 Unknown Urine Sodium 66 mmol/L 02/28/18 Unknown Urine Total Protein 46 mg/dL (5-11.8) H 02/28/18 Unknown
[2018-03-06 07:24] LABS: BUN/Creatinine Ratio 12; Blood Urea Nitrogen 12 mg/dL (9-20); Calcium 8.5 mg/dL (8.4-10.2); Hemolysis Index 2
[2018-03-06] MEDS: HumaLOG SUB-Q SCH ×7 (09:29→22:34)
[2018-03-06] MEDS: NORVASC PO SCH (09:30)
--- NOTE | 2018-03-06 09:44 | Progress Note ---
Assessment and Plan Acute on Chronic Kidney Disease likely secondary to Diabetic Nephropathy and Hypertensive Nephrosclerosis: -Renal function reviewed. Serum creatinine trend down to 1.0 today. -Renal ultrasound- mass identified to left kidney and bladder, malignancy cannot be excluded- Urology onboard -Avoid Nephrotoxic agents -Monitor I/O's -Obtain daily weights -Will continue to monitor renal function closely Left Kidney Mass: -Urology onboard -Would like to obtain Ct scan with contrast when renal function is better Diabetic Ketoacidosis: -S/P Insulin drip -Now on sliding scale insulin -As per primary team Hyperphosphatemia: -Resolved -Renvela discontinued -Monitor phosphorus and PTH levels Hypertension: -On Amlodipine -Adjust regimen as needed Hypernatremia: -Resolved Subjective Date of service: 03/06/18 Principal diagnosis: renal mass Objective - Vital Signs Vital signs: Vital Signs - 12hr 03/05/18 03/06/18 03/06/18 22:42 04:49 05:51 Temperature 97.9 F 98.7 F Pulse Rate 75 74 Respiratory 20 18 Rate Blood Pressure 155/92 Blood Pressure 122/75 [Left] O2 Sat by Pulse 99 99 Oximetry 03/06/18 09:30 Temperature Pulse Rate Respiratory Rate Blood Pressure 120/75 Blood Pressure [Left] O2 Sat by Pulse Oximetry - Lab 03/06/18 06:26 03/06/18 06:26 Most recent lab results Calcium 8.5 mg/dL (8.4-10.2) 03/06/18 06:26 Phosphorus 1.90 mg/dL (2.5-4.5) L 03/01/18 04:41 Magnesium 3.80 mg/dL (1.7-2.3) H 02/27/18 01:26 Urine Creatinine 125.8 mg/dL (0.1-20.0) H 02/28/18 Unknown Urine Sodium 66 mmol/L 02/28/18 Unknown Urine Total Protein 46 mg/dL (5-11.8) H 02/28/18 Unknown
--- NOTE | 2018-03-06 13:11 | Vascular Lab Report ---
LOWER EXTREMITY VENOUS DUPLEX: REASON FOR EXAM: Pain and swelling of the lower extremities. COMMENTS ON THE RIGHT: Partially occluding chronic thrombus is seen in the deep femoral vein, superficial femoral vein, and popliteal vein. There is indeterminate age thrombus in the greater saphenous vein from the ankle to the knee. Spontaneous and phasic flow is maintained proximally. COMMENTS ON THE LEFT: Acute thrombus is seen in the common femoral vein and in the proximal posterior tibial vein. The remaining veins visualized are freely compressible without evidence of internal echogenicity. Spontaneous and phasic flow is present proximally. IMPRESSION: Acute deep venous thrombosis involving the left common femoral vein and posterior tibial vein. Indeterminate age thrombus involving the right greater saphenous vein from knee to ankle. Chronic partially occluding thrombus throughout the deep system of the right lower extremity.
--- NOTE | 2018-03-06 13:17 | Hem/Onc Progress Note ---
Assessment and Plan # left renal mass - may be neoplastic in etiology - urology consulted # liver abn - subcentimeter nodularity on CT - report mentions possible neoplastic # Bladder lesion - urology consulted # new DM - was in ICU as admission sugar was >1000 # h/o Leukocytosis and Erythrocytosis # h/o rt leg DVT in past # CTA - b/l PE and doppler shows left leg DVT - pt on heparin MRI liver ordered - machine issues hence delayed We will wait for radiology of liver to see the lesions and review the need and possibility of biopsy. pt would need oral anticoagulation - once biopsy of the mass is done D/w Dr Caldwell 03/06 reg - MRI - US - Sx - recent PE - will await radiology - Patient Problems (1) Renal mass Onset Date: ~03/05/18 Current Visit: Yes Status: Acute Subjective Date of service: 03/06/18 Principal diagnosis: renal mass and liver abn Interval history: h/o SOB h/o rt leg DVT many years ago PE - on heparin Pending MRI liver Objective - Constitutional Vitals: Last Vital Signs Temp 98.7 F 03/06/18 04:49 Pulse 74 03/06/18 04:49 Resp 18 03/06/18 04:49 BP 120/75 03/06/18 09:30 Pulse Ox 99 03/06/18 04:49 Pain Intensity (0-10): denies any pain General appearance: no acute distress Performance status: 1-light work, ambulatory - EENT Eyes: PERRL ENT: clear oral mucosa Lymph node exam: negative cervical, negative supraclavicular - Neck Neck: supple - Respiratory Respiratory effort: Positive: normal Respiratory: negative: CTA - Cardiovascular Heart Sounds: Present: S1 & S2 Extremity abnormal: edema - Gastrointestinal General gastrointestinal: Present: soft, non-tender - Genitourinary Male genitourinary: Present: deferred - Musculoskeletal Musculoskeletal: strength equal bilaterally - Neurologic Neurologic: moves all extremities - Labs Lab Results: Laboratory Results - last 24 hr 03/05/18 03/05/18 03/06/18 16:43 21:03 06:26 Hgb Hct Plt Count Heparin Anti-Xa Level Sodium 138 Potassium 4.0 Chloride 103.8 Carbon Dioxide 21 L Anion Gap 17 BUN 12 Creatinine 1.0 Estimated GFR > 60 BUN/Creatinine Ratio 12 Glucose 125 H POC Glucose 218 H 208 H Calcium 8.5 03/06/18 03/06/18 03/06/18 06:26 06:26 08:13 Hgb 11.9 Hct 36.0 Plt Count 279 Heparin Anti-Xa Level 0.15 L Sodium Potassium Chloride Carbon Dioxide Anion Gap BUN Creatinine Estimated GFR BUN/Creatinine Ratio Glucose POC Glucose 93 Calcium 03/06/18 12:19 Hgb Hct Plt Count Heparin Anti-Xa Level Sodium Potassium Chloride Carbon Dioxide Anion Gap BUN Creatinine Estimated GFR BUN/Creatinine Ratio Glucose POC Glucose 62 L Calcium
--- NOTE | 2018-03-06 15:34 | Progress Note ---
Assessment and Plan Assessment and plan: Patient is a 62 yo man with a history of hypertension and dyslipidemia who pw slurred speech and malaise. CT head reported no acute findings. He was found to have new onset DM with DKA. He was admitted to the ICU with Insulin drip. * Venous U/S Doppler Legs EVIDENCE OF CHRONIC DVT IN THE RT.PX TO DS SFV,RT.PX DFV AND RT.POPLITEAL VEINS. ACUTE DVT SEEN IN THE LT.DISTAL CFV AND IN THE LT.PTV AT PX CALF. SVT NOTED IN THE RT.GSV FROM THE KNEE UP TO THE DISTAL CALF * CT chest with IV contrast IMPRESSION: Ascending aortic aneurysm without dissection. Bilateral pulmonary emboli. Nonspecific ground-glass opacities in both upper lungs. Differential diagnosis includes pneumonia, pneumonitis, and malignancy. Further evaluation with PET-CT scan, biopsy, and or three-month interval follow-up is recommended if clinically indicated. Cardiomegaly and small pericardial effusion. Stable indeterminate left adrenal nodule. Nonspecific hepatic lesions. Similar to prior * CT abd/pelvis with IV contrast IMPRESSION: Abnormal soft tissue mass again visualized lower 3rd left kidney. Malignancy is suspected. Recent ultrasound suggested a solid masses present. Small renal cortical cysts also visualize left kidney. Nonspecific diffuse prostate enlargement. As indicated above there is additional nodular density projecting in the base of the urinary bladder. I cannot exclude 2nd mass in the urinary bladder. There are multiple small, subcentimeter nodular density scattered in the liver. These are difficult to characterize given their small size. They may represent cysts although not confirmed with this exam. Consider follow-up hepatic ultrasound or MRI to evaluate the liver further. Cholelithiasis. Benign-appearing nodular density left adrenal gland suggesting an adrenal adenoma. 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 No leakage is seen. * Renal U/S IMPRESSION: The right kidney is unremarkable. There is a cyst measuring 9 x 6 x 15 millimeters. There are no stones. There is no hydronephrosis. There is a mass at the lower pole measuring 6.4 x 5 x 7.5 centimeters. Malignancy cannot be excluded. There is a mass in the urinary bladder measuring 3.4 x 2.5 x 2.9 centimeters. Malignancy cannot be excluded.. DKA, new onset DM continue insulins Hypernatremia -continue IVF, encourage PO water intake -resolved PILI- vasomotor nephropathy continue IVF, improving left renal mass -solid mass confirmed on CT with IV contrast, dw Dr Haines -liver mets? obtain MRI abdomen (MRI machine has been out of service for days, awaiting MRI) -case dw oncologist -CT chest reveals GG opacities which could be inflammatory vs malignancy? -after liver MRI, will plan which lesion to biopsy liver vs kidney Acute Left DVT, and chronic R DVT has hx of DVT- years ago -has R chronic DVT and left acute dvt on heparin drip AAA: consult Cardiology Urology reached out to me regarding stablility for Nephrectomy. Since this is my first day caring for patient I called Pulm, Dr. Calhoun who suggested I consult Cardiology and get ECHO. I also called Dr. Zarate, MRI delay is really problematic here, ?stage 4 cancer. Since MRI is delay, Dr. Zarate suggest u/s of liver. Consulted Cardiology for pre-op evaluation. History Interval history: Patient was seen and examined. Follow-up on current diagnosis. Overnight uneventful. Patient denies any chest pain, shortness breath, nausea/vomiting or severe headaches. Imaging, nursing note, chart, labs and old chart reviewed. Discussed with patient. GEN: WDWN, NAD, Awake, Alert, Orientated HEENT: NCAT, EOMI, PERRL, OP Clear NECK: supple, no adenopathy, no thyromegaly, no JVD CVS/HEART: RRR, normal S1S2, pulses present bilaterally CHEST/LUNGS: CTA B, Symmetrical chest expansion, good air entry bilaterally GI/Abdomen: soft, NTND, good bowel sounds, no guarding or rebound /Bladder: no suprapubic tenderness, no CVA or paraspinal tenderness EXT/Skin: no c/c/e, no obvious rash MSK: FROM x 4 Neuro: CN 2-12 grossly intact, no new focal deficits Psych: calm PMH: as hpi PSH: SH: FH: ROS: Constitutional: denies: fever ENT: denies: throat or neck pain Respiratory: denies: cough, shortness of breath Cardiovascular: denies: chest pain Endocrine: denies unexplained weight loss or gain Gastrointestinal: denies: abdominal pain, nausea Genitourinary: denies: dysuria Rectal: denies no incontinence, no bleeding, no itching, no discharge Musculoskeletal: denies swelling, myaglia, muscle weakness Skin: denies: rash Neurological: denies: headache Hematological/Lymphatic: denies: easy bleeding or easy bruising Allergic/Immunologic: no urticaria, no allergic rhinitis, no anaphylaxis Psych: denies sadness or hopelessness, SI/HI If blood glucose (BG) is 150-200 then give 2 units of insulin, if BG 201-250 give 4 units, if BG 251-300 give 6 u, if BG 301-350 give 8 units, if BG 351-400 give 10 units, if BG 401-450 give 12 units, if BG 451-500 give 14 units. Call MD immediately if BG>400 or less than 70 Hospitalist Physical - Constitutional Vitals: Temp Pulse Resp BP Pulse Ox 97.8 F 82 20 141/88 99 03/06/18 12:17 03/06/18 12:17 03/06/18 12:17 03/06/18 12:17 03/06/18 12:17 Results - Labs CBC & Chem 7: 03/06/18 06:26 03/06/18 06:26 Labs: Laboratory Last Values WBC 9.6 K/mm3 (4.5-11.0) 03/05/18 05:43 RBC 4.29 M/mm3 (3.65-5.03) 03/05/18 05:43 Hgb 11.9 gm/dl (11.8-15.2) 03/06/18 06:26 Hct 36.0 % (35.5-45.6) 03/06/18 06:26 MCV 85 fl (84-94) 03/05/18 05:43 MCH 28 pg (28-32) 03/05/18 05:43 MCHC 33 % (32-34) 03/05/18 05:43 RDW 13.7 % (13.2-15.2) 03/05/18 05:43 Plt Count 279 K/mm3 (140-440) 03/06/18 06:26 Lymph % (Auto) 19.7 % (13.4-35.0) 03/05/18 05:43 [place] % (Auto) 13.4 % (0.0-7.3) H 03/05/18 05:43 Eos % (Auto) 2.5 % (0.0-4.3) 03/05/18 05:43 Baso % (Auto) 0.7 % (0.0-1.8) 03/05/18 05:43 Lymph # 1.9 K/mm3 (1.2-5.4) 03/05/18 05:43 [place] # 1.3 K/mm3 (0.0-0.8) H 03/05/18 05:43 Eos # 0.2 K/mm3 (0.0-0.4) 03/05/18 05:43 Baso # 0.1 K/mm3 (0.0-0.1) 03/05/18 05:43 Seg Neutrophils % 63.7 % (40.0-70.0) 03/05/18 05:43 Seg Neutrophils # 6.1 K/mm3 (1.8-7.7) 03/05/18 05:43 PT 13.4 Sec. (12.2-14.9) 03/04/18 13:26 INR 0.97 (0.87-1.13) 03/04/18 13:26 APTT 26.9 Sec. (24.2-36.6) 03/04/18 13:26 Thrombin Time 20.9 Sec. (15.1-19.6) H 02/27/18 00:34 Heparin Anti-Xa Level 0.18 U.I./ml (0.3-0.7) L 03/06/18 13:26 Sodium 138 mmol/L (137-145) 03/06/18 06:26 Potassium 4.0 mmol/L (3.6-5.0) 03/06/18 06:26 Chloride 103.8 mmol/L (98-107) 03/06/18 06:26 Carbon Dioxide 21 mmol/L (22-30) L 03/06/18 06:26 Anion Gap 17 mmol/L 03/06/18 06:26 BUN 12 mg/dL (9-20) 03/06/18 06:26 Creatinine 1.0 mg/dL (0.8-1.5) 03/06/18 06:26 Estimated GFR > 60 ml/min 03/06/18 06:26 BUN/Creatinine Ratio 12 % 03/06/18 06:26 Glucose 125 mg/dL (75-100) H 03/06/18 06:26 POC Glucose 62 (70-105) L 03/06/18 12:19 Hemoglobin A1c 16.0 % (4-6) H 03/01/18 10:37 Calcium 8.5 mg/dL (8.4-10.2) 03/06/18 06:26 Phosphorus 1.90 mg/dL (2.5-4.5) L 03/01/18 04:41 Magnesium 3.80 mg/dL (1.7-2.3) H 02/27/18 01:26 Troponin T 0.015 ng/mL (0.00-0.029) 02/26/18 23:25 PTH Intact 265.7 pg/mL (15-65) H 02/28/18 04:05 Urine Color Straw (Yellow) 02/27/18 01:02 Urine Turbidity Clear (Clear) 02/27/18 01:02 Urine pH 5.0 (5.0-7.0) 02/27/18 01:02 Ur Specific [place] 1.024 (1.003-1.030) 02/27/18 01:02 Urine Protein <15 mg/dl mg/dL (Negative) 02/27/18 01:02 Urine Glucose (UA) >=500 mg/dL (Negative) 02/27/18 01:02 Urine Ketones Tr mg/dL (Negative) 02/27/18 01:02 Urine Blood Sm (Negative) 02/27/18 01:02 Urine Nitrite Neg (Negative) 02/27/18 01:02 Urine Bilirubin Neg (Negative) 02/27/18 01:02 Urine Urobilinogen < 2.0 mg/dL (<2.0) 02/27/18 01:02 Ur Leukocyte Esterase Neg (Negative) 02/27/18 01:02 Urine WBC (Auto) 2.0 /HPF (0.0-6.0) 02/27/18 01:02 Urine RBC (Auto) 7.0 /HPF (0.0-6.0) 02/27/18 01:02 U Epithel Cells (Auto) < 1.0 /HPF (0-13.0) 02/27/18 01:02 Urine Yeast (Budding) Few /HPF 02/27/18 01:02 Urine Creatinine 125.8 mg/dL (0.1-20.0) H 02/28/18 Unknown Urine Sodium 66 mmol/L 02/28/18 Unknown Urine Total Protein 46 mg/dL (5-11.8) H 02/28/18 Unknown
[2018-03-06] MEDS: HEPARIN/ 0.45% NACL-25,000 UNIT/500 ML 25,000 UNIT/500 ML BAG IV SCH (16:44)
[2018-03-06] MEDS: LANTUS SUB-Q SCH (21:36)
[2018-03-06] MEDS: PRAVACHOL PO SCH (21:36)
[2018-03-07 07:11] LABS: BUN/Creatinine Ratio 12; Blood Urea Nitrogen 12 mg/dL (9-20); Calcium 8.3 mg/dL (8.4-10.2); Hemolysis Index 32
[2018-03-07] MEDS: HumaLOG SUB-Q SCH ×6 (08:30→17:25)
--- NOTE | 2018-03-07 09:28 | Ultrasound Report ---
ULTRASOUND ABDOMEN LIMITED: TECHNIQUE: Transabdominal ultrasound with color Doppler interrogation. HISTORY: Liver mass, evaluate for metastases. COMPARISON: CT abdomen pelvis with contrast dated 03/03/18. FINDINGS: LIVER: Normal. No evidence for mass or parenchymal disease. BILIARY SYSTEM: A small amount of sludge is identified within the gallbladder. No evidence for shadowing gallstones, wall thickening or surrounding fluid. The CBD measures 5 mm. PANCREAS: Normal. RIGHT KIDNEY: Normal. PROXIMAL AORTA: Normal. ASCITES: None. IMPRESSION: No evidence for liver mass. Small amount of sludge in the gallbladder.
[2018-03-07] MEDS: HEPARIN/ 0.45% NACL-25,000 UNIT/500 ML 25,000 UNIT/500 ML BAG IV SCH (09:43)
[2018-03-07] MEDS: NORVASC PO SCH ×2 (09:52→17:33)
--- NOTE | 2018-03-07 10:22 | Consultation ---
History of Present Illness Consult date: 03/07/18 Consult reason: pre op evaluation, other (AAA) History of present illness: This is a 62 year old male with a history of hypertension who was admitted 02/27 with DKA and acute renal failure. Initial labs revealed a glucose level of 1178 and a serum creatinine of 2.7. Further evaluation with a chest CT revealed bilateral pulmonary emboli. There was an ascending aortic aneurysm without dissection measuring 4.3 cm. Bilateral lower extremity duplex also revealed acute DVT/SVT. He is currently on intravenous heparin. Patient was also found to have a left renal mass, likely neoplastic in etiology which is being followed by urology and oncology. A cardiac consultation was requested for evaluation of ascending aortic aneurysm. Urology also requests a cardiac risk assessment for possible nephrectomy. Patient denies chest pain and shortness of breath. He denies a prior cardiac history. An echocardiogram this presentation documents a normal left ventricular systolic function, ejection fraction 55%. His ECG shows a sinus rhythm with nonspecific Twave abnormalities. Medications and Allergies Allergies Allergy/AdvReac Type Severity Reaction Status Date / Time No Known Allergies Allergy Verified 02/27/18 00:58 Home Medications Medication Instructions Recorded Confirmed Last Taken Type Olmesartan (Nf) 20 mg PO DAILY 02/26/18 02/26/18 Unknown History Pravastatin 40 mg PO DAILY 02/26/18 02/26/18 Unknown History Triamterene-Hctz 75-50 mg Tab 1 tab PO DAILY 02/26/18 02/26/18 Unknown History amLODIPine 10 mg PO DAILY 02/26/18 02/26/18 Unknown History Active Meds: Active Medications Amlodipine Besylate (Norvasc) 10 mg PO DAILY [facility] Last Admin: 03/07/18 09:52 Dose: Not Given Dextrose (D50w (25gm) Syringe) 0 ml IV PRN PRN PRN Reason: Hypoglycemia Hydrophilic Ointment (Vaseline Lip Therapy) 1 applic TP DIRECT PRN PRN Reason: DRY LIPS Heparin Sodium/Sodium Chloride (Heparin/ 0.45% Nacl-25,000 Unit/500 Ml) 25,000 unit in 500 mls @ 30 mls/hr IV TITR ADRIANO; Protocol Last Admin: 03/07/18 09:43 Dose: 1,700 units/hr, 34 mls/hr Insulin Glargine (Lantus) 45 units SUB-Q QHS [facility] Last Admin: 03/06/18 21:36 Dose: 45 units Insulin Human Lispro (Humalog) 0 unit SUB-Q ACHS [facility]; Protocol Last Admin: 03/07/18 08:30 Dose: Not Given Insulin Human Lispro (Humalog) 11 unit SUB-Q AC [facility] Last Admin: 03/07/18 08:31 Dose: Not Given Pravastatin Sodium (Pravachol) 40 mg PO QHS [facility] Last Admin: 03/06/18 21:36 Dose: 40 mg Physical Examination Vital Signs Temp Pulse Resp BP Pulse Ox 97.5 F L 98 H 18 109/77 98 02/26/18 22:57 02/26/18 22:57 02/26/18 22:57 02/26/18 22:57 02/26/18 22:57 General appearance: no acute distress HEENT: Positive: PERRL Cardiac: Positive: Reg Rate and Rhythm Lungs: Positive: Decreased Breath Sounds Neuro: Positive: Grossly Intact Results 03/06/18 06:26 03/07/18 05:28 Comprehensive Metabolic Panel 03/07/18 Range/Units 05:28 Sodium 137 (137-145) mmol/L Potassium 3.5 L (3.6-5.0) mmol/L Chloride 104.4 (98-107) mmol/L Carbon Dioxide 21 L (22-30) mmol/L BUN 12 (9-20) mg/dL Creatinine 1.0 (0.8-1.5) mg/dL Glucose 59 L (75-100) mg/dL Calcium 8.3 L (8.4-10.2) mg/dL Assessment and Plan Acute PE/DVT -on IV heparin Diabetes, newly diagnosed Left renal mass AAA measuring 4.3cm Hypertension Normal LVEF by echo.
--- NOTE | 2018-03-07 12:20 | Hem/Onc Progress Note ---
Assessment and Plan # left renal mass - may be neoplastic in etiology - urology consulted. # liver abn - subcentimeter nodularity on CT - report mentions possible neoplastic however US report for liver - no lesion seen # Bladder lesion - urology consulted # new DM - was in ICU as admission sugar was >1000 # h/o Leukocytosis and Erythrocytosis # CTA - b/l PE and doppler shows left leg DVT - pt on heparin h/o rt leg DVT in past MRI liver ordered - machine issues hence delayed pt would need oral anticoagulation - once biopsy of the mass is done - NOAC eliquis being planned Will follow as OP to coordinate with urology team. Prothrombin gene mutation and Factor V Leiden mutation study ordered - Patient Problems (1) Renal mass Onset Date: ~03/05/18 Current Visit: Yes Status: Acute Subjective Date of service: 03/07/18 Principal diagnosis: renal mass Interval history: h/o SOB h/o rt leg DVT many years ago PE - on heparin Pending MRI liver US abdo done - liver normal Discharge planning Objective - Constitutional Vitals: Last Vital Signs Temp 98.6 F 03/07/18 04:56 Pulse 74 03/07/18 04:56 Resp 10 L 03/07/18 04:56 BP 109/63 03/07/18 09:52 Pulse Ox 97 03/07/18 04:56 Pain Intensity (0-10): denies any pain General appearance: no acute distress Performance status: 0-fully active - EENT Eyes: PERRL ENT: clear oral mucosa Lymph node exam: negative cervical, negative supraclavicular - Neck Neck: supple - Respiratory Respiratory effort: Positive: normal Respiratory: bilateral: CTA - Cardiovascular Heart Sounds: Present: S1 & S2 Extremity abnormal: edema - Gastrointestinal General gastrointestinal: Present: soft, non-tender Rectal Exam: deferred - Genitourinary Male genitourinary: Present: deferred - Musculoskeletal Musculoskeletal: strength equal bilaterally - Neurologic Neurologic: moves all extremities - Psychiatric Psychiatric: appropriate mood/affect - Allied health notes Allied health notes reviewed: nursing - Labs Lab Results: Laboratory Results - last 24 hr 03/06/18 03/06/18 03/06/18 12:19 13:26 17:16 Heparin Anti-Xa Level 0.18 L Sodium Potassium Chloride Carbon Dioxide Anion Gap BUN Creatinine Estimated GFR BUN/Creatinine Ratio Glucose POC Glucose 62 L 165 H Calcium 03/06/18 03/06/18 03/07/18 20:40 21:18 05:28 Heparin Anti-Xa Level 0.20 L Sodium 137 Potassium 3.5 L Chloride 104.4 Carbon Dioxide 21 L Anion Gap 15 BUN 12 Creatinine 1.0 Estimated GFR > 60 BUN/Creatinine Ratio 12 Glucose 59 L POC Glucose 232 H Calcium 8.3 L 03/07/18 03/07/18 05:28 07:37 Heparin Anti-Xa Level 0.38 Sodium Potassium Chloride Carbon Dioxide Anion Gap BUN Creatinine Estimated GFR BUN/Creatinine Ratio Glucose POC Glucose 77 Calcium
--- NOTE | 2018-03-07 15:24 | Magnetic Resonance Report ---
MR ABDOMEN WITH AND WITHOUT CONTRAST History: Renal mass, concern for liver metastasis, liver masses. Technique: Multiple T1 and T2-weighted images with and without fat suppression were obtained. Postcontrast dynamic imaging following 19 cc of IV gadolinium. Findings: Recent CT abdomen and pelvis and renal ultrasound were reviewed. MRI also demonstrates an approximate 7.2 cm rounded mass with heterogeneous enhancement at the inferior pole left kidney. Renal neoplasm is suspected until proven otherwise. There is no evidence for perinephric adenopathy. The left renal vein is patent. The right kidney is unremarkable. The liver is normal size and contour. There are scattered tiny cysts throughout the liver but no evidence for suspicious liver mass. The gallbladder is contracted. No stones or biliary dilatation is appreciated. The pancreas, spleen, adrenal glands and visualized bowel loops are unremarkable. 3.7 cm distal aortic aneurysm just before the bifurcation is identified. No stenosis or dissection. No evidence for adenopathy, ascites or inflammatory changes. Normal bone marrow signal throughout the visualized bony structures. No bony metastasis are appreciated. Impression: Suspicious 7.2 left renal mass as described. Renal neoplasm is suspected. Multiple tiny liver cysts. No evidence for liver metastasis. 3.7 cm AAA.
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
--- NOTE | 2018-03-07 17:58 | Progress Note ---
Assessment and Plan Hyperosmolar hyperglycemic state VTE (Acute DVT and Bilateral P.E.'s) Hyponatremia Hyperkalemia Acute renal failure h/o HTN h/o Hyperlipidemia Leukocytosis Erythrocytosis Anion gap Metabolic acidosis h/o RLE DVT (overall will still boil down to risk-benefit ratio regarding timing of surgery ; despite clot burden he is hemodynamically stable and can potentially undergo a nephrectomy if the risks of metastasis are too high to wait on anticoagulation ) - will get vascular surgery input - will need IVC filter - continue glycemic control for NODM with SSI for target BG 140-180 mg/dl acutely - prn ABG's at this point - urology evaluation ongoing - continue to avoid nephrotoxic agents and adjust all medications for CrCL - azotemia per nephrology otherwise - GI & VTE prophylaxis - continue blood pressure control and monitoring - continue other care per attending / other consultants ....... Care plan discussed with the patient and all his questions were answered FULL CODE STATUS Subjective Date of service: 03/07/18 Principal diagnosis: renal mass and liver abn Interval history: Patient is seen today for: Hyperosmolar hyperglycemic State; PILI on CKD; Bilateral DVT's; Bilateral Pulmonary Emboli ASKED TO RE-EVALUATE RE: TENTATIVE NEPHRECTOMY IN SETTING OF ACUTE VTE (P.E. and DVT's BILATERALLY) Seen and examined at bedside; 24hour events reviewed; nursing and respiratory care staff consulted; no adverse overnight events reported to me; s Objective Vital Signs - 12hr 03/07/18 03/07/18 03/07/18 09:52 12:04 17:33 Temperature 98.6 F Pulse Rate 63 Respiratory 18 20 Rate Blood Pressure 109/63 162/97 169/109 O2 Sat by Pulse 100 Oximetry Constitutional: no acute distress, alert, other (elderly AAM, normocephalic and atraumatic) Eyes: non-icteric ENT: oropharynx moist, other (Mallampati 3) Neck: supple, no lymphadenopathy, no JVD, other (No thyromegaly) Effort: mildly labored Ascultation: Bilateral: clear, diminished breath sounds Percussion: Bilateral: not dull Cardiovascular: regular rate and rhythm, other (No R/M) Gastrointestinal: normoactive bowel sounds, soft, non-tender, non-distended, other (No HSM) Integumentary: normal Extremities: no cyanosis, no edema, pulses normal, no ischemia or petechiae Neurologic: normal mental status, non-focal exam, pupils equal and round, CN II- XII normal Psychiatric: mood appropriate, affect normal CBC and BMP: 03/06/18 06:26 03/08/18 06:26 ABG, PT/INR, D-dimer: PT/INR, D-dimer PT 13.4 Sec. (12.2-14.9) 03/04/18 13:26 INR 0.97 (0.87-1.13) 03/04/18 13:26 Abnormal lab findings: Abnormal Labs 02/26/18 02/26/18 02/27/18 23:25 23:25 00:34 WBC 14.6 H RBC 5.60 H Hgb 15.5 H Hct 50.1 H MCHC 30 L RDW 15.9 H Plt Count Lymph % (Auto) 4.6 L [place] % (Auto) Lymph # 0.7 L [place] # 1.0 H Baso # 0.2 H Seg Neutrophils % 87.3 H Seg Neutrophils # 12.7 H PT 16.2 H INR 1.25 H APTT 21.0 L Thrombin Time 20.9 H Heparin Anti-Xa Level Sodium 131 L Potassium 6.0 H Chloride 85.5 L Carbon Dioxide 15 L BUN 84 H Creatinine 2.7 H Glucose 1178 H* POC Glucose Hemoglobin A1c Calcium Phosphorus Magnesium PTH Intact Urine Creatinine Urine Total Protein 02/27/18 02/27/18 02/27/18 01:26 01:26 03:43 WBC RBC Hgb Hct MCHC RDW Plt Count Lymph % (Auto) [place] % (Auto) Lymph # [place] # Baso # Seg Neutrophils % Seg Neutrophils # PT INR APTT Thrombin Time Heparin Anti-Xa Level Sodium 133 L Potassium 5.6 H Chloride 87.4 L Carbon Dioxide 18 L BUN 86 H Creatinine 2.7 H Glucose 1142 H* POC Glucose > 500 H Hemoglobin A1c Calcium Phosphorus 5.90 H Magnesium 3.80 H PTH Intact Urine Creatinine Urine Total Protein 02/27/18 02/27/18 02/27/18 03:49 05:30 07:44 WBC RBC Hgb Hct MCHC RDW Plt Count Lymph % (Auto) [place] % (Auto) Lymph # [place] # Baso # Seg Neutrophils % Seg Neutrophils # PT INR APTT Thrombin Time Heparin Anti-Xa Level Sodium 148 H Potassium Chloride 107.4 H Carbon Dioxide BUN 81 H 81 H 79 H Creatinine 2.3 H 2.3 H 2.3 H Glucose 942 H* 811 H* 731 H* POC Glucose Hemoglobin A1c Calcium Phosphorus Magnesium PTH Intact Urine Creatinine Urine Total Protein 02/27/18 02/27/18 02/27/18 08:47 11:27 13:19 WBC RBC Hgb Hct MCHC RDW Plt Count Lymph % (Auto) [place] % (Auto) Lymph # [place] # Baso # Seg Neutrophils % Seg Neutrophils # PT INR APTT Thrombin Time Heparin Anti-Xa Level Sodium 150 H Potassium Chloride 110.1 H Carbon Dioxide BUN 78 H Creatinine 2.3 H Glucose 628 H* POC Glucose 382 H 275 H Hemoglobin A1c Calcium Phosphorus Magnesium PTH Intact Urine Creatinine Urine Total Protein 02/27/18 02/27/18 02/27/18 14:30 16:02 16:40 WBC RBC Hgb Hct MCHC RDW Plt Count Lymph % (Auto) [place] % (Auto) Lymph # [place] # Baso # Seg Neutrophils % Seg Neutrophils # PT INR APTT Thrombin Time Heparin Anti-Xa Level Sodium 156 H Potassium Chloride 112.6 H Carbon Dioxide BUN 64 H Creatinine 1.7 H Glucose 214 H POC Glucose 249 H 221 H Hemoglobin A1c Calcium Phosphorus Magnesium PTH Intact Urine Creatinine Urine Total Protein 02/27/18 02/27/18 02/27/18 17:12 19:10 20:30 WBC RBC Hgb Hct MCHC RDW Plt Count Lymph % (Auto) [place] % (Auto) Lymph # [place] # Baso # Seg Neutrophils % Seg Neutrophils # PT INR APTT Thrombin Time Heparin Anti-Xa Level Sodium Potassium Chloride Carbon Dioxide BUN Creatinine Glucose POC Glucose 235 H 187 H 108 H Hemoglobin A1c Calcium Phosphorus Magnesium PTH Intact Urine Creatinine Urine Total Protein 02/27/18 02/27/18 02/27/18 21:30 22:43 23:48 WBC RBC Hgb Hct MCHC RDW Plt Count Lymph % (Auto) [place] % (Auto) Lymph # [place] # Baso # Seg Neutrophils % Seg Neutrophils # PT INR APTT Thrombin Time Heparin Anti-Xa Level Sodium Potassium Chloride Carbon Dioxide BUN Creatinine Glucose POC Glucose 134 H 212 H 227 H Hemoglobin A1c Calcium Phosphorus Magnesium PTH Intact Urine Creatinine Urine Total Protein 02/28/18 02/28/18 02/28/18 00:50 01:27 01:52 WBC RBC Hgb Hct MCHC RDW Plt Count Lymph % (Auto) [place] % (Auto) Lymph # [place] # Baso # Seg Neutrophils % Seg Neutrophils # PT INR APTT Thrombin Time Heparin Anti-Xa Level Sodium 147 H D Potassium Chloride Carbon Dioxide BUN 57 H Creatinine Glucose 281 H POC Glucose 260 H 241 H Hemoglobin A1c Calcium Phosphorus Magnesium PTH Intact Urine Creatinine Urine Total Protein 02/28/18 02/28/18 02/28/18 02:52 03:55 04:05 WBC RBC Hgb Hct MCHC RDW Plt Count Lymph % (Auto) [place] % (Auto) Lymph # [place] # Baso # Seg Neutrophils % Seg Neutrophils # PT INR APTT Thrombin Time Heparin Anti-Xa Level Sodium Potassium Chloride Carbon Dioxide BUN Creatinine Glucose POC Glucose 280 H 242 H Hemoglobin A1c Calcium Phosphorus Magnesium PTH Intact 265.7 H Urine Creatinine Urine Total Protein 02/28/18 02/28/18 02/28/18 04:05 04:57 06:00 WBC 12.9 H RBC 5.34 H Hgb Hct MCHC RDW Plt Count 116 L Lymph % (Auto) [place] % (Auto) Lymph # [place] # 0.9 H Baso # Seg Neutrophils % 76.2 H Seg Neutrophils # 9.8 H PT INR APTT Thrombin Time Heparin Anti-Xa Level Sodium Potassium Chloride Carbon Dioxide BUN Creatinine Glucose POC Glucose 227 H 146 H Hemoglobin A1c Calcium Phosphorus Magnesium PTH Intact Urine Creatinine Urine Total Protein 02/28/18 02/28/18 02/28/18 06:54 08:14 10:01 WBC RBC Hgb Hct MCHC RDW Plt Count Lymph % (Auto) [place] % (Auto) Lymph # [place] # Baso # Seg Neutrophils % Seg Neutrophils # PT INR APTT Thrombin Time Heparin Anti-Xa Level Sodium Potassium Chloride Carbon Dioxide BUN Creatinine Glucose POC Glucose 134 H 110 H 130 H Hemoglobin A1c Calcium Phosphorus Magnesium PTH Intact Urine Creatinine Urine Total Protein 02/28/18 02/28/18 02/28/18 11:03 12:13 12:52 WBC RBC Hgb Hct MCHC RDW Plt Count Lymph % (Auto) [place] % (Auto) Lymph # [place] # Baso # Seg Neutrophils % Seg Neutrophils # PT INR APTT Thrombin Time Heparin Anti-Xa Level Sodium Potassium Chloride Carbon Dioxide 17 L D BUN 48 H Creatinine Glucose 245 H POC Glucose 167 H 194 H Hemoglobin A1c Calcium 8.2 L Phosphorus Magnesium PTH Intact Urine Creatinine Urine Total Protein 02/28/18 02/28/1818 14:05 14:51 17:03 WBC RBC Hgb Hct MCHC RDW Plt Count Lymph % (Auto) [place] % (Auto) Lymph # [place] # Baso # Seg Neutrophils % Seg Neutrophils # PT INR APTT Thrombin Time Heparin Anti-Xa Level Sodium Potassium Chloride Carbon Dioxide BUN Creatinine Glucose POC Glucose 207 H 227 H 172 H Hemoglobin A1c Calcium Phosphorus Magnesium PTH Intact Urine Creatinine Urine Total Protein 02/28/18 02/28/18 02/28/18 17:24 18:36 20:34 WBC RBC Hgb Hct MCHC RDW Plt Count Lymph % (Auto) [place] % (Auto) Lymph # [place] # Baso # Seg Neutrophils % Seg Neutrophils # PT INR APTT Thrombin Time Heparin Anti-Xa Level Sodium Potassium Chloride Carbon Dioxide BUN 44 H Creatinine Glucose 163 H POC Glucose 153 H 120 H Hemoglobin A1c Calcium Phosphorus Magnesium PTH Intact Urine Creatinine Urine Total Protein 02/28/18 02/28/18 02/28/18 21:55 22:54 22:59 WBC RBC Hgb Hct MCHC RDW Plt Count Lymph % (Auto) [place] % (Auto) Lymph # [place] # Baso # Seg Neutrophils % Seg Neutrophils # PT INR APTT Thrombin Time Heparin Anti-Xa Level Sodium Potassium Chloride Carbon Dioxide BUN 40 H Creatinine Glucose 145 H POC Glucose 114 H 122 H Hemoglobin A1c Calcium Phosphorus Magnesium PTH Intact Urine Creatinine Urine Total Protein 02/28/18 03/01/18 03/01/18 Unknown 00:00 01:57 WBC RBC Hgb Hct MCHC RDW Plt Count Lymph % (Auto) [place] % (Auto) Lymph # [place] # Baso # Seg Neutrophils % Seg Neutrophils # PT INR APTT Thrombin Time Heparin Anti-Xa Level Sodium Potassium 3.5 L D Chloride Carbon Dioxide BUN 39 H Creatinine Glucose 225 H POC Glucose 189 H Hemoglobin A1c Calcium 8.2 L Phosphorus Magnesium PTH Intact Urine Creatinine 125.8 H Urine Total Protein 46 H 03/01/18 03/01/18 03/01/18 03:35 04:41 06:36 WBC RBC Hgb Hct MCHC RDW Plt Count Lymph % (Auto) [place] % (Auto) Lymph # [place] # Baso # Seg Neutrophils % Seg Neutrophils # PT INR APTT Thrombin Time Heparin Anti-Xa Level Sodium 134 L Potassium Chloride Carbon Dioxide 17 L D BUN 38 H 27 H Creatinine Glucose 256 H 279 H POC Glucose 239 H Hemoglobin A1c Calcium 8.2 L 8.3 L Phosphorus 1.90 L Magnesium PTH Intact Urine Creatinine Urine Total Protein 03/01/18 03/01/18 03/01/18 07:49 09:40 10:37 WBC RBC Hgb Hct MCHC RDW Plt Count Lymph % (Auto) [place] % (Auto) Lymph # [place] # Baso # Seg Neutrophils % Seg Neutrophils # PT INR APTT Thrombin Time Heparin Anti-Xa Level Sodium 135 L Potassium Chloride Carbon Dioxide BUN 37 H Creatinine Glucose 354 H POC Glucose 281 H Hemoglobin A1c 16.0 H Calcium 7.9 L Phosphorus Magnesium PTH Intact Urine Creatinine Urine Total Protein 03/01/18 03/01/18 03/01/18 12:01 17:08 17:10 WBC RBC Hgb Hct MCHC RDW Plt Count Lymph % (Auto) [place] % (Auto) Lymph # [place] # Baso # Seg Neutrophils % Seg Neutrophils # PT INR APTT Thrombin Time Heparin Anti-Xa Level Sodium 132 L Potassium Chloride Carbon Dioxide 20 L BUN 36 H Creatinine Glucose 279 H POC Glucose 326 H 256 H Hemoglobin A1c Calcium 8.2 L Phosphorus Magnesium PTH Intact Urine Creatinine Urine Total Protein 03/01/18 03/01/18 03/02/18 21:06 21:17 07:54 WBC RBC Hgb Hct MCHC RDW Plt Count Lymph % (Auto) [place] % (Auto) Lymph # [place] # Baso # Seg Neutrophils % Seg Neutrophils # PT INR APTT Thrombin Time Heparin Anti-Xa Level Sodium 133 L Potassium 3.5 L Chloride Carbon Dioxide BUN 37 H Creatinine Glucose 209 H POC Glucose 220 H 51 L Hemoglobin A1c Calcium 8.2 L Phosphorus Magnesium PTH Intact Urine Creatinine Urine Total Protein 03/02/18 03/02/18 03/02/18 10:46 13:14 16:10 WBC RBC Hgb Hct MCHC RDW Plt Count Lymph % (Auto) [place] % (Auto) Lymph # [place] # Baso # Seg Neutrophils % Seg Neutrophils # PT INR APTT Thrombin Time Heparin Anti-Xa Level Sodium 133 L Potassium Chloride 97.4 L Carbon Dioxide 19 L BUN 29 H Creatinine Glucose 116 H POC Glucose 147 H 232 H Hemoglobin A1c Calcium 8.2 L Phosphorus Magnesium PTH Intact Urine Creatinine Urine Total Protein 03/02/18 03/03/18 03/03/18 21:24 05:04 11:57 WBC RBC Hgb Hct MCHC RDW Plt Count Lymph % (Auto) [place] % (Auto) Lymph # [place] # Baso # Seg Neutrophils % Seg Neutrophils # PT INR APTT Thrombin Time Heparin Anti-Xa Level Sodium Potassium 3.3 L Chloride Carbon Dioxide BUN 24 H Creatinine Glucose 74 L POC Glucose 273 H 226 H Hemoglobin A1c Calcium 8.1 L Phosphorus Magnesium PTH Intact Urine Creatinine Urine Total Protein 03/03/18 03/04/18 03/04/18 16:01 07:07 07:51 WBC RBC Hgb Hct MCHC RDW Plt Count Lymph % (Auto) [place] % (Auto) Lymph # [place] # Baso # Seg Neutrophils % Seg Neutrophils # PT INR APTT Thrombin Time Heparin Anti-Xa Level Sodium Potassium Chloride Carbon Dioxide BUN Creatinine Glucose 189 H POC Glucose 184 H 173 H Hemoglobin A1c Calcium 8.1 L Phosphorus Magnesium PTH Intact Urine Creatinine Urine Total Protein 03/04/18 03/04/18 03/04/18 12:12 16:54 20:43 WBC RBC Hgb Hct MCHC RDW Plt Count Lymph % (Auto) [place] % (Auto) Lymph # [place] # Baso # Seg Neutrophils % Seg Neutrophils # PT INR APTT Thrombin Time Heparin Anti-Xa Level 0.76 H Sodium Potassium Chloride Carbon Dioxide BUN Creatinine Glucose POC Glucose 176 H 191 H Hemoglobin A1c Calcium Phosphorus Magnesium PTH Intact Urine Creatinine Urine Total Protein 03/04/18 03/05/18 03/05/18 21:55 05:43 05:43 WBC RBC Hgb Hct MCHC RDW Plt Count Lymph % (Auto) [place] % (Auto) 13.4 H Lymph # [place] # 1.3 H Baso # Seg Neutrophils % Seg Neutrophils # PT INR APTT Thrombin Time Heparin Anti-Xa Level Sodium Potassium Chloride Carbon Dioxide BUN Creatinine Glucose 101 H POC Glucose 248 H Hemoglobin A1c Calcium 8.1 L Phosphorus Magnesium PTH Intact Urine Creatinine Urine Total Protein 03/05/18 03/05/18 03/05/18 11:02 16:43 21:03 WBC RBC Hgb Hct MCHC RDW Plt Count Lymph % (Auto) [place] % (Auto) Lymph # [place] # Baso # Seg Neutrophils % Seg Neutrophils # PT INR APTT Thrombin Time Heparin Anti-Xa Level Sodium Potassium Chloride Carbon Dioxide BUN Creatinine Glucose POC Glucose 212 H 218 H 208 H Hemoglobin A1c Calcium Phosphorus Magnesium PTH Intact Urine Creatinine Urine Total Protein 03/06/18 03/06/18 03/06/18 06:26 06:26 12:19 WBC RBC Hgb Hct MCHC RDW Plt Count Lymph % (Auto) [place] % (Auto) Lymph # [place] # Baso # Seg Neutrophils % Seg Neutrophils # PT INR APTT Thrombin Time Heparin Anti-Xa Level 0.15 L Sodium Potassium Chloride Carbon Dioxide 21 L BUN Creatinine Glucose 125 H POC Glucose 62 L Hemoglobin A1c Calcium Phosphorus Magnesium PTH Intact Urine Creatinine Urine Total Protein 03/06/18 03/06/18 03/06/18 13:26 17:16 20:40 WBC RBC Hgb Hct MCHC RDW Plt Count Lymph % (Auto) [place] % (Auto) Lymph # [place] # Baso # Seg Neutrophils % Seg Neutrophils # PT INR APTT Thrombin Time Heparin Anti-Xa Level 0.18 L 0.20 L Sodium Potassium Chloride Carbon Dioxide BUN Creatinine Glucose POC Glucose 165 H Hemoglobin A1c Calcium Phosphorus Magnesium PTH Intact Urine Creatinine Urine Total Protein 03/06/18 03/07/18 03/07/18 21:18 05:28 16:22 WBC RBC Hgb Hct MCHC RDW Plt Count Lymph % (Auto) [place] % (Auto) Lymph # [place] # Baso # Seg Neutrophils % Seg Neutrophils # PT INR APTT Thrombin Time Heparin Anti-Xa Level Sodium Potassium 3.5 L Chloride Carbon Dioxide 21 L BUN Creatinine Glucose 59 L POC Glucose 232 H 131 H Hemoglobin A1c Calcium 8.3 L Phosphorus Magnesium PTH Intact Urine Creatinine Urine Total Protein Allied health notes reviewed: nursing
[2018-03-07] MEDS: PRAVACHOL PO SCH (21:37)
[2018-03-07] MEDS: ELIQUIS PO SCH (21:37)
[2018-03-07] MEDS: LANTUS SUB-Q SCH (22:48)
[2018-03-08] MEDS: HumaLOG SUB-Q SCH ×3 (07:30→19:38)
[2018-03-08 07:52] LABS: BUN/Creatinine Ratio 10; Blood Urea Nitrogen 10 mg/dL (9-20); Calcium 8.3 mg/dL (8.4-10.2); Hemolysis Index 4
--- NOTE | 2018-03-08 09:25 | Progress Note ---
Assessment and Plan Acute PE/DVT -on IV heparin Diabetes, newly diagnosed Renal and bladder mass concern for malignancy AAA measuring 4.3cm Hypertension Normal LVEF by echo. Conservative cardiac management. Subjective Date of service: 03/08/18 Principal diagnosis: renal mass Interval history: Patient has no cardiac complaints. Objective Vital Signs Temp Pulse Resp BP Pulse Ox 03/08/18 06:11 98.7 F 67 20 127/75 98 03/08/18 00:19 98.5 F 74 20 126/86 99 03/07/18 17:33 169/109 03/07/18 17:32 98.3 F 22 169/109 03/07/18 17:31 98.3 F 22 174/113 03/07/18 12:04 98.6 F 63 20 162/97 100 03/07/18 09:52 18 109/63 - Physical Examination General: No Apparent Distress HEENT: Positive: PERRL Neck: Positive: trachea midline Cardiac: Positive: Reg Rate and Rhythm Lungs: Positive: Decreased Breath Sounds Neuro: Positive: Grossly Intact Extremities: Absent: edema - Labs and Meds Comprehensive Metabolic Panel 03/08/18 Range/Units 06:26 Sodium 139 (137-145) mmol/L Potassium 3.9 (3.6-5.0) mmol/L Chloride 106.0 (98-107) mmol/L Carbon Dioxide 22 (22-30) mmol/L BUN 10 (9-20) mg/dL Creatinine 1.0 (0.8-1.5) mg/dL Glucose 107 H (75-100) mg/dL Calcium 8.3 L (8.4-10.2) mg/dL - Allied health notes Allied health notes reviewed: nursing
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
[2018-03-08] MEDS: NORVASC PO SCH (09:36)
[2018-03-08] MEDS: ELIQUIS PO SCH ×2 (11:26→23:04)
--- NOTE | 2018-03-08 13:05 | Hem/Onc Progress Note ---
Assessment and Plan Generic Name Dose Route Start Last Admin Trade Name Joeyq PRN Reason Stop Dose Admin Amlodipine Besylate 10 mg 02/27/18 10:00 03/08/18 09:36 Norvasc PO Not Given DAILY ADRIANO Apixaban 10 mg 03/08/18 22:00 Eliquis PO Q12HR [facility] Protocol Hydrophilic Ointment 1 applic 02/28/18 14:57 Vaseline Lip Therapy TP DIRECT PRN DRY LIPS Insulin Glargine 38 units 03/07/18 22:00 03/07/18 22:48 Lantus SUB-Q Not Given QHS [facility] Insulin Human Lispro 11 unit 03/05/18 16:30 03/08/18 19:38 Humalog SUB-Q Not Given AC [facility] Pravastatin Sodium 40 mg 02/27/18 22:00 03/07/18 21:37 Pravachol PO 40 mg QHS ADRIANO Administration # left renal mass - may be neoplastic in etiology - urology consulted. # liver abn - subcentimeter nodularity on CT - report mentions possible neoplastic however US report for liver - no lesion seen , MRI liver 03/07 - no mets # Bladder lesion - urology consulted # new DM - was in ICU as admission sugar was >1000 # h/o Leukocytosis and Erythrocytosis # CTA - b/l PE and doppler shows left leg DVT - pt was on heparin h/o rt leg DVT in past - plan for NOAC pt would need oral anticoagulation - once biopsy of the mass is done - NOAC eliquis being planned Will follow as OP to coordinate with urology team. Prothrombin gene mutation and Factor V Leiden mutation study ordered Urology discussing reg kidney sx - Patient Problems (1) Renal mass Onset Date: ~03/05/18 Current Visit: Yes Status: Acute Subjective Date of service: 03/08/18 Principal diagnosis: kidney mass Interval history: h/o SOB h/o rt leg DVT many years ago PE - on heparin US abdo done - liver normal there is a discussion reg kidney sx MRI liver done 03/07 - no mets Objective - Constitutional Vitals: Last Vital Signs Temp 98.7 F 03/08/18 06:11 Pulse 67 03/08/18 06:11 Resp 20 03/08/18 06:11 BP 127/75 03/08/18 06:11 Pulse Ox 98 03/08/18 06:11 Pain Intensity (0-10): denies any pain General appearance: no acute distress Performance status: 0-fully active - EENT Eyes: PERRL ENT: clear oral mucosa Lymph node exam: negative cervical, negative supraclavicular - Neck Neck: supple - Respiratory Respiratory effort: Positive: normal Respiratory: negative: CTA - Cardiovascular Heart Sounds: Present: S1 & S2 Extremity abnormal: edema - Gastrointestinal General gastrointestinal: Present: soft, non-tender Rectal Exam: deferred - Genitourinary Male genitourinary: Present: deferred - Integumentary Integumentary: warm - Musculoskeletal Musculoskeletal: strength equal bilaterally - Neurologic Neurologic: moves all extremities - Psychiatric Psychiatric: appropriate mood/affect - Allied health notes Allied health notes reviewed: nursing - Labs Lab Results: Laboratory Results - last 24 hr 03/07/18 03/07/18 03/07/18 12:06 16:22 22:19 Sodium Potassium Chloride Carbon Dioxide Anion Gap BUN Creatinine Estimated GFR BUN/Creatinine Ratio Glucose POC Glucose 72 131 H 69 L Calcium 03/08/18 03/08/18 03/08/18 06:26 08:41 12:30 Sodium 139 Potassium 3.9 Chloride 106.0 Carbon Dioxide 22 Anion Gap 15 BUN 10 Creatinine 1.0 Estimated GFR > 60 BUN/Creatinine Ratio 10 Glucose 107 H POC Glucose 105 92 Calcium 8.3 L
[2018-03-08] MEDS ORDERED: HEPARIN/ 0.45% NACL-25,000 UNIT/500 ML 25,000 UNIT/500 ML BAG IV SCH (15:00)
--- NOTE | 2018-03-08 15:05 | Consultation ---
History of Present Illness - Reason for Consult Consult date: 03/08/18 IVC filter placement - History of Present Illness 62 year old male with a history of hypertension who was admitted 02/27 with DKA and acute renal failure. Chest CT revealed bilateral pulmonary emboli. There was an ascending aortic aneurysm without dissection measuring 4.3 cm. Bilateral lower extremity duplex also revealed acute DVT/SVT. Patient was also found to have a left RCC. Vascular consulted for possible IVC filter with bilateral pulmonary emboli. Left renal cell carcinoma noted. Past History Past Medical History: diabetes (newly diagnosed), DVT, hypertension, hyperlipidemia Past Surgical History: Other (None reported) Social history: no significant social history Family history: no significant family history Medications and Allergies Allergies Allergy/AdvReac Type Severity Reaction Status Date / Time No Known Allergies Allergy Verified 02/27/18 00:58 Home Medications Medication Instructions Recorded Confirmed Last Taken Type Olmesartan (Nf) 20 mg PO DAILY 02/26/18 02/26/18 Unknown History Pravastatin 40 mg PO DAILY 02/26/18 02/26/18 Unknown History Triamterene-Hctz 75-50 mg Tab 1 tab PO DAILY 02/26/18 02/26/18 Unknown History amLODIPine 10 mg PO DAILY 02/26/18 02/26/18 Unknown History Active Meds: Active Medications Amlodipine Besylate (Norvasc) 10 mg PO DAILY [facility] Last Admin: 03/08/18 09:36 Dose: Not Given Heparin Protocol (Heparin No Bolus) 1 each IV ONCE ONE Stop: 03/08/18 14:35 Hydrophilic Ointment (Vaseline Lip Therapy) 1 applic TP DIRECT PRN PRN Reason: DRY LIPS Heparin Sodium/Sodium Chloride (Heparin/ 0.45% Nacl-25,000 Unit/500 Ml) 25,000 unit in 500 mls @ 37.41 mls/hr IV TITR ADRIANO; Protocol Insulin Glargine (Lantus) 38 units SUB-Q QHS [facility] Last Admin: 03/07/18 22:48 Dose: Not Given Insulin Human Lispro (Humalog) 11 unit SUB-Q AC [facility] Last Admin: 03/08/18 11:30 Dose: Not Given Pravastatin Sodium (Pravachol) 40 mg PO QHS [facility] Last Admin: 03/07/18 21:37 Dose: 40 mg Review of Systems All systems: negative (see HPI) Exam - Constitutional Vitals: Temp Pulse Resp BP Pulse Ox 98.3 F 69 16 160/104 100 03/08/18 13:00 03/08/18 13:00 03/08/18 13:00 03/08/18 13:00 03/08/18 13:00 General appearance: Present: no acute distress - EENT Eyes: Present: EOM intact ENT: hearing intact - Respiratory Respiratory effort: normal - Extremities Extremities: normal temperature, normal color Extremity abnormal: edema (lower extremities) - Abdominal General gastrointestinal: Present: soft - Psychiatric Psychiatric: appropriate mood/affect, cooperative Results - Labs CBC & Chem 7: 03/08/18 15:43 03/08/18 06:26 Labs: Abnormal lab results 03/07/18 03/07/18 03/08/18 Range/Units 16:22 22:19 06:26 Glucose 107 H (75-100) mg/dL POC Glucose 131 H 69 L (70-105) Calcium 8.3 L (8.4-10.2) mg/dL - Imaging and Cardiology CT scan - abdomen: report reviewed, image reviewed CT scan - chest: report reviewed, image reviewed Assessment and Plan 62 year old male with left sided large renal mass (RCC), bilateral lower extremity DVT, hypercoagulable disorder with greater than 5 prior DVTs, and bilateral submassive pulmonary embolism. Liver MRI demonstrates no metastatic disease. CT of the chest demonstrates no metastatic disease. Has large left renal mass which is solid and based on CT criteria is more than 95% likely to represent a RCC. No biopsy required. The patient has tolerated bilateral submassive pulmonary emboli with no shortness of breath with exertion or at rest, normal vitals, but mild right sided ventricular enlargement. Patient is at risk for decompensation during anesthesia induction which is a concern of both marsha, Dr. Howard, and Dr. Haines. I believe the best way to manage the risks and benefits of this situation is to start patient on Eliquis and keep him on the medication for [address] an IVC filter. In 6 weeks he will follow up with Dr. Howard who will repeat his echocardiogram and I suspect his right heart mild enlargement will resolve. At that time he will likely be cleared for surgery and will have anticoagulation held. IVC filter will provide protection. After surgery, once his risks of bleeding from nephrectomy have passed, he will be restarted on Eliquis. Plan for IVC filter later today.
[2018-03-08] MEDS ORDERED: ZOSYN/NS 4.5GM/100ML 4.5 GM/100 ML VIAL IV ONE (15:10)
[2018-03-08 16:03] LABS: Hematocrit 36.4 % (35.5-45.6); Hemoglobin 11.9 gm/dl (11.8-15.2)
[2018-03-08 16:13] LABS: INR 1.09 (0.87-1.13)
[2018-03-08 16:14] LABS: Partial Thromboplastin Time 28.4 Sec. (24.2-36.6)
[2018-03-08] MEDS ORDERED: HEPARIN/NS 5000 UNIT/500ML(CATH LAB) 1,000 ML IR ONE (16:37)
[2018-03-08] MEDS ORDERED: XYLOCAINE 2% INFILTRATI ONE (16:40)
[2018-03-08] MEDS ORDERED: VERSED ONE (16:58)
[2018-03-08] MEDS ORDERED: SUBLIMAZE ONE (16:59)
[2018-03-08] MEDS ORDERED: ANCEF/STERILE WATER 2 GM/20 ML 2 GM/20 ML SYRINGE IV ONE (16:59)
[2018-03-08] MEDS ORDERED: NACL 0.9% 500 ML 500 ML ONE (16:59)
[2018-03-08] MEDS ORDERED: ZOFRAN ONE (17:11)
[2018-03-08] MEDS: XYLOCAINE 1%/ EPI 1:100,000 INFILTRATI ONE ×2 (17:12→17:25)
--- NOTE | 2018-03-08 17:53 | Operative Report ---
Operative Report Operative Report: EXAM: Ultrasound guided access of the right internal jugular IVC filter placement and inferior venacava venography DATE: 03/08/18 INDICATION: Bilateral lower extremity DVT with bilateral pulmonary embolism and left-sided renal cell carcinoma requiring IVC filter for left-sided nephrectomy. MEDICATIONS: Continuous cardiopulmonary monitoring was performed during this procedure. Please review the nursing record for a list of all medications. DEVICES: Retrievable Bard Baxter IVC filter. TYPING SECTION CHIEF: PRAVEEN GARAY MD CONTRAST: 40 mLs of nonionic contrast PROCEDURE: The risks, benefits, and alternatives were discussed; written informed consent was obtained. The patient was transported to the angiography suite in stable condition. The patient was transported on the table and the right internal jugular was assessed with ultrasound to ensure patency. The patient was prepped and draped in a sterile fashion. The right internal jugular vein was accessed with an 21-gauge needle under direct ultrasound guidance. 0.018 inch wire was advanced through the needle and the needle was exchanged for a transitional dilation. Inner dilator and wire was removed. 0.035 inch wire was passed into the inferior vena cava. The transitional dilator was exchanged for a 5 Albanian sheath and a 5 [place]ian pigtail catheter was advanced over the wire and passed into the inferior vena cava. The table was locked. Digital subtraction venography was performed. The pigtail was removed over a 0.035 inch wire and the sheath was removed over the wire. The IVC filter sheath and introducer were advanced over the wire under direct fluoroscopic guidance. The wire and introducer were removed. The IVC filter deployment system was advanced through the sheath and properly positioned under fluoroscopic guidance. The IVC filter was deployed under direct fluoroscopic guidance. Venography was performed through the sheath to confirm position. The deployment system, and sheath were removed. Pressure was held until hemostasis was achieved. The patient was transferred from the angiography suite in stable condition. FINDINGS: 1. Under direct ultrasound guidance, the right internal jugular vein was accessed with a 21-gauge needle. The vein was patent. 2. Digital subtraction venography of the inferior vena cava demonstrates no evidence of inferior vena cava thrombus. The inferior vena cava is normal in size. Renal vein inflow is visualized. The inferior vena cava is adequate to accommodate an IVC filter. 3. Bard Baxter IVC filter is properly positioned, below the renal veins and above the iliocaval confluence. IMPRESSION: Successful placement of a retrievable Bard Baxter IVC filter. No evidence of caval thrombus.
--- NOTE | 2018-03-08 19:32 | Progress Note ---
Assessment and Plan Patient alert, awake. Denies chest pain, shortness of breath or cough. Patient resting on room air. O2 saturation 97%.Patient has IVC filter placement today. - Patient Problems (1) DKA (diabetic ketoacidoses) Current Visit: Yes Status: Acute Plan to address problem: Improved. (2) Acute renal failure Current Visit: Yes Status: Acute Plan to address problem: Management as per nephrology. (3) Hyperkalemia Current Visit: Yes Status: Acute Plan to address problem: Corrected. To days K+ is 3.9. (4) Renal mass Onset Date: ~03/05/18 Current Visit: Yes Status: Acute Plan to address problem: Management as per nephrology and Urology. (5) DVT (deep venous thrombosis) Current Visit: Yes Status: Acute Plan to address problem: Patient is on Eliquis. Patient has IVC filter placement. (6) Pulmonary emboli Current Visit: Yes Status: Acute Plan to address problem: Patient is on Eliquis. Patient has IVC filter management. Subjective Date of service: 03/08/18 Principal diagnosis: kidney mass Interval history: Patient alert, awake. Denies chest pain, shortness of breath or cough. Patient resting on room air. O2 saturation 97%.Patient has IVC filter placement today. Objective Vital Signs - 12hr 03/08/18 03/08/18 13:00 18:10 Temperature 98.3 F 98.7 F Pulse Rate 69 92 H Respiratory 16 16 Rate Blood Pressure 160/104 162/100 [Left] O2 Sat by Pulse 100 97 Oximetry Constitutional: no acute distress, alert, other (elderly AAM, normocephalic and atraumatic) Eyes: non-icteric ENT: oropharynx moist, other (Mallampati 3) Neck: supple, no lymphadenopathy, no JVD, other (No thyromegaly) Effort: mildly labored Ascultation: Bilateral: diminished breath sounds Percussion: Bilateral: not dull Cardiovascular: regular rate and rhythm, other (No R/M) Gastrointestinal: normoactive bowel sounds, soft, non-tender, non-distended, other (No HSM) Integumentary: normal Extremities: no cyanosis, no edema, pulses normal, no ischemia or petechiae Neurologic: normal mental status, non-focal exam, pupils equal and round, CN II- XII normal Psychiatric: mood appropriate, affect normal CBC and BMP: 03/08/18 15:43 03/08/18 06:26 ABG, PT/INR, D-dimer: PT/INR, D-dimer PT 14.6 Sec. (12.2-14.9) 03/08/18 15:43 INR 1.09 (0.87-1.13) 03/08/18 15:43 Abnormal lab findings: Abnormal Labs 02/26/18 02/26/18 02/27/18 23:25 23:25 00:34 WBC 14.6 H RBC 5.60 H Hgb 15.5 H Hct 50.1 H MCHC 30 L RDW 15.9 H Plt Count Lymph % (Auto) 4.6 L [place] % (Auto) Lymph # 0.7 L [place] # 1.0 H Baso # 0.2 H Seg Neutrophils % 87.3 H Seg Neutrophils # 12.7 H PT 16.2 H INR 1.25 H APTT 21.0 L Thrombin Time 20.9 H Heparin Anti-Xa Level Sodium 131 L Potassium 6.0 H Chloride 85.5 L Carbon Dioxide 15 L BUN 84 H Creatinine 2.7 H Glucose 1178 H* POC Glucose Hemoglobin A1c Calcium Phosphorus Magnesium PTH Intact Urine Creatinine Urine Total Protein 02/27/18 02/27/18 02/27/18 01:26 01:26 03:43 WBC RBC Hgb Hct MCHC RDW Plt Count Lymph % (Auto) [place] % (Auto) Lymph # [place] # Baso # Seg Neutrophils % Seg Neutrophils # PT INR APTT Thrombin Time Heparin Anti-Xa Level Sodium 133 L Potassium 5.6 H Chloride 87.4 L Carbon Dioxide 18 L BUN 86 H Creatinine 2.7 H Glucose 1142 H* POC Glucose > 500 H Hemoglobin A1c Calcium Phosphorus 5.90 H Magnesium 3.80 H PTH Intact Urine Creatinine Urine Total Protein 02/27/18 02/27/18 02/27/18 03:49 05:30 07:44 WBC RBC Hgb Hct MCHC RDW Plt Count Lymph % (Auto) [place] % (Auto) Lymph # [place] # Baso # Seg Neutrophils % Seg Neutrophils # PT INR APTT Thrombin Time Heparin Anti-Xa Level Sodium 148 H Potassium Chloride 107.4 H Carbon Dioxide BUN 81 H 81 H 79 H Creatinine 2.3 H 2.3 H 2.3 H Glucose 942 H* 811 H* 731 H* POC Glucose Hemoglobin A1c Calcium Phosphorus Magnesium PTH Intact Urine Creatinine Urine Total Protein 02/27/18 02/27/18 02/27/18 08:47 11:27 13:19 WBC RBC Hgb Hct MCHC RDW Plt Count Lymph % (Auto) [place] % (Auto) Lymph # [place] # Baso # Seg Neutrophils % Seg Neutrophils # PT INR APTT Thrombin Time Heparin Anti-Xa Level Sodium 150 H Potassium Chloride 110.1 H Carbon Dioxide BUN 78 H Creatinine 2.3 H Glucose 628 H* POC Glucose 382 H 275 H Hemoglobin A1c Calcium Phosphorus Magnesium PTH Intact Urine Creatinine Urine Total Protein 02/27/18 02/27/18 02/27/18 14:30 16:02 16:40 WBC RBC Hgb Hct MCHC RDW Plt Count Lymph % (Auto) [place] % (Auto) Lymph # [place] # Baso # Seg Neutrophils % Seg Neutrophils # PT INR APTT Thrombin Time Heparin Anti-Xa Level Sodium 156 H Potassium Chloride 112.6 H Carbon Dioxide BUN 64 H Creatinine 1.7 H Glucose 214 H POC Glucose 249 H 221 H Hemoglobin A1c Calcium Phosphorus Magnesium PTH Intact Urine Creatinine Urine Total Protein 02/27/18 02/27/18 02/27/18 17:12 19:10 20:30 WBC RBC Hgb Hct MCHC RDW Plt Count Lymph % (Auto) [place] % (Auto) Lymph # [place] # Baso # Seg Neutrophils % Seg Neutrophils # PT INR APTT Thrombin Time Heparin Anti-Xa Level Sodium Potassium Chloride Carbon Dioxide BUN Creatinine Glucose POC Glucose 235 H 187 H 108 H Hemoglobin A1c Calcium Phosphorus Magnesium PTH Intact Urine Creatinine Urine Total Protein 02/27/18 02/27/18 02/27/18 21:30 22:43 23:48 WBC RBC Hgb Hct MCHC RDW Plt Count Lymph % (Auto) [place] % (Auto) Lymph # [place] # Baso # Seg Neutrophils % Seg Neutrophils # PT INR APTT Thrombin Time Heparin Anti-Xa Level Sodium Potassium Chloride Carbon Dioxide BUN Creatinine Glucose POC Glucose 134 H 212 H 227 H Hemoglobin A1c Calcium Phosphorus Magnesium PTH Intact Urine Creatinine Urine Total Protein 02/28/18 02/28/18 02/28/18 00:50 01:27 01:52 WBC RBC Hgb Hct MCHC RDW Plt Count Lymph % (Auto) [place] % (Auto) Lymph # [place] # Baso # Seg Neutrophils % Seg Neutrophils # PT INR APTT Thrombin Time Heparin Anti-Xa Level Sodium 147 H D Potassium Chloride Carbon Dioxide BUN 57 H Creatinine Glucose 281 H POC Glucose 260 H 241 H Hemoglobin A1c Calcium Phosphorus Magnesium PTH Intact Urine Creatinine Urine Total Protein 02/28/18 02/28/18 02/28/18 02:52 03:55 04:05 WBC RBC Hgb Hct MCHC RDW Plt Count Lymph % (Auto) [place] % (Auto) Lymph # [place] # Baso # Seg Neutrophils % Seg Neutrophils # PT INR APTT Thrombin Time Heparin Anti-Xa Level Sodium Potassium Chloride Carbon Dioxide BUN Creatinine Glucose POC Glucose 280 H 242 H Hemoglobin A1c Calcium Phosphorus Magnesium PTH Intact 265.7 H Urine Creatinine Urine Total Protein 02/28/18 02/28/18 02/28/18 04:05 04:57 06:00 WBC 12.9 H RBC 5.34 H Hgb Hct MCHC RDW Plt Count 116 L Lymph % (Auto) [place] % (Auto) Lymph # [place] # 0.9 H Baso # Seg Neutrophils % 76.2 H Seg Neutrophils # 9.8 H PT INR APTT Thrombin Time Heparin Anti-Xa Level Sodium Potassium Chloride Carbon Dioxide BUN Creatinine Glucose POC Glucose 227 H 146 H Hemoglobin A1c Calcium Phosphorus Magnesium PTH Intact Urine Creatinine Urine Total Protein 02/28/18 02/28/18 02/28/18 06:54 08:14 10:01 WBC RBC Hgb Hct MCHC RDW Plt Count Lymph % (Auto) [place] % (Auto) Lymph # [place] # Baso # Seg Neutrophils % Seg Neutrophils # PT INR APTT Thrombin Time Heparin Anti-Xa Level Sodium Potassium Chloride Carbon Dioxide BUN Creatinine Glucose POC Glucose 134 H 110 H 130 H Hemoglobin A1c Calcium Phosphorus Magnesium PTH Intact Urine Creatinine Urine Total Protein 02/28/18 02/28/18 02/28/18 11:03 12:13 12:52 WBC RBC Hgb Hct MCHC RDW Plt Count Lymph % (Auto) [place] % (Auto) Lymph # [place] # Baso # Seg Neutrophils % Seg Neutrophils # PT INR APTT Thrombin Time Heparin Anti-Xa Level Sodium Potassium Chloride Carbon Dioxide 17 L D BUN 48 H Creatinine Glucose 245 H POC Glucose 167 H 194 H Hemoglobin A1c Calcium 8.2 L Phosphorus Magnesium PTH Intact Urine Creatinine Urine Total Protein 02/28/18 02/28/18 02/28/18 14:05 14:51 17:03 WBC RBC Hgb Hct MCHC RDW Plt Count Lymph % (Auto) [place] % (Auto) Lymph # [place] # Baso # Seg Neutrophils % Seg Neutrophils # PT INR APTT Thrombin Time Heparin Anti-Xa Level Sodium Potassium Chloride Carbon Dioxide BUN Creatinine Glucose POC Glucose 207 H 227 H 172 H Hemoglobin A1c Calcium Phosphorus Magnesium PTH Intact Urine Creatinine Urine Total Protein 02/28/18 02/28/18 02/28/18 17:24 18:36 20:34 WBC RBC Hgb Hct MCHC RDW Plt Count Lymph % (Auto) [place] % (Auto) Lymph # [place] # Baso # Seg Neutrophils % Seg Neutrophils # PT INR APTT Thrombin Time Heparin Anti-Xa Level Sodium Potassium Chloride Carbon Dioxide BUN 44 H Creatinine Glucose 163 H POC Glucose 153 H 120 H Hemoglobin A1c Calcium Phosphorus Magnesium PTH Intact Urine Creatinine Urine Total Protein 02/28/18 02/28/18 02/28/18 21:55 22:54 22:59 WBC RBC Hgb Hct MCHC RDW Plt Count Lymph % (Auto) [place] % (Auto) Lymph # [place] # Baso # Seg Neutrophils % Seg Neutrophils # PT INR APTT Thrombin Time Heparin Anti-Xa Level Sodium Potassium Chloride Carbon Dioxide BUN 40 H Creatinine Glucose 145 H POC Glucose 114 H 122 H Hemoglobin A1c Calcium Phosphorus Magnesium PTH Intact Urine Creatinine Urine Total Protein 02/28/18 03/01/18 03/01/18 Unknown 00:00 01:57 WBC RBC Hgb Hct MCHC RDW Plt Count Lymph % (Auto) [place] % (Auto) Lymph # [place] # Baso # Seg Neutrophils % Seg Neutrophils # PT INR APTT Thrombin Time Heparin Anti-Xa Level Sodium Potassium 3.5 L D Chloride Carbon Dioxide BUN 39 H Creatinine Glucose 225 H POC Glucose 189 H Hemoglobin A1c Calcium 8.2 L Phosphorus Magnesium PTH Intact Urine Creatinine 125.8 H Urine Total Protein 46 H 03/01/18 03/01/18 03/01/18 03:35 04:41 06:36 WBC RBC Hgb Hct MCHC RDW Plt Count Lymph % (Auto) [place] % (Auto) Lymph # [place] # Baso # Seg Neutrophils % Seg Neutrophils # PT INR APTT Thrombin Time Heparin Anti-Xa Level Sodium 134 L Potassium Chloride Carbon Dioxide 17 L D BUN 38 H 27 H Creatinine Glucose 256 H 279 H POC Glucose 239 H Hemoglobin A1c Calcium 8.2 L 8.3 L Phosphorus 1.90 L Magnesium PTH Intact Urine Creatinine Urine Total Protein 03/01/18 03/01/18 03/01/18 07:49 09:40 10:37 WBC RBC Hgb Hct MCHC RDW Plt Count Lymph % (Auto) [place] % (Auto) Lymph # [place] # Baso # Seg Neutrophils % Seg Neutrophils # PT INR APTT Thrombin Time Heparin Anti-Xa Level Sodium 135 L Potassium Chloride Carbon Dioxide BUN 37 H Creatinine Glucose 354 H POC Glucose 281 H Hemoglobin A1c 16.0 H Calcium 7.9 L Phosphorus Magnesium PTH Intact Urine Creatinine Urine Total Protein 03/01/18 03/01/18 03/01/18 12:01 17:08 17:10 WBC RBC Hgb Hct MCHC RDW Plt Count Lymph % (Auto) [place] % (Auto) Lymph # [place] # Baso # Seg Neutrophils % Seg Neutrophils # PT INR APTT Thrombin Time Heparin Anti-Xa Level Sodium 132 L Potassium Chloride Carbon Dioxide 20 L BUN 36 H Creatinine Glucose 279 H POC Glucose 326 H 256 H Hemoglobin A1c Calcium 8.2 L Phosphorus Magnesium PTH Intact Urine Creatinine Urine Total Protein 03/01/18 03/01/18 03/02/18 21:06 21:17 07:54 WBC RBC Hgb Hct MCHC RDW Plt Count Lymph % (Auto) [place] % (Auto) Lymph # [place] # Baso # Seg Neutrophils % Seg Neutrophils # PT INR APTT Thrombin Time Heparin Anti-Xa Level Sodium 133 L Potassium 3.5 L Chloride Carbon Dioxide BUN 37 H Creatinine Glucose 209 H POC Glucose 220 H 51 L Hemoglobin A1c Calcium 8.2 L Phosphorus Magnesium PTH Intact Urine Creatinine Urine Total Protein 03/02/18 03/02/18 03/02/18 10:46 13:14 16:10 WBC RBC Hgb Hct MCHC RDW Plt Count Lymph % (Auto) [place] % (Auto) Lymph # [place] # Baso # Seg Neutrophils % Seg Neutrophils # PT INR APTT Thrombin Time Heparin Anti-Xa Level Sodium 133 L Potassium Chloride 97.4 L Carbon Dioxide 19 L BUN 29 H Creatinine Glucose 116 H POC Glucose 147 H 232 H Hemoglobin A1c Calcium 8.2 L Phosphorus Magnesium PTH Intact Urine Creatinine Urine Total Protein 03/02/18 03/03/18 03/03/18 21:24 05:04 11:57 WBC RBC Hgb Hct MCHC RDW Plt Count Lymph % (Auto) [place] % (Auto) Lymph # [place] # Baso # Seg Neutrophils % Seg Neutrophils # PT INR APTT Thrombin Time Heparin Anti-Xa Level Sodium Potassium 3.3 L Chloride Carbon Dioxide BUN 24 H Creatinine Glucose 74 L POC Glucose 273 H 226 H Hemoglobin A1c Calcium 8.1 L Phosphorus Magnesium PTH Intact Urine Creatinine Urine Total Protein 03/03/18 03/04/18 03/04/18 16:01 07:07 07:51 WBC RBC Hgb Hct MCHC RDW Plt Count Lymph % (Auto) [place] % (Auto) Lymph # [place] # Baso # Seg Neutrophils % Seg Neutrophils # PT INR APTT Thrombin Time Heparin Anti-Xa Level Sodium Potassium Chloride Carbon Dioxide BUN Creatinine Glucose 189 H POC Glucose 184 H 173 H Hemoglobin A1c Calcium 8.1 L Phosphorus Magnesium PTH Intact Urine Creatinine Urine Total Protein 03/04/18 03/04/18 03/04/18 12:12 16:54 20:43 WBC RBC Hgb Hct MCHC RDW Plt Count Lymph % (Auto) [place] % (Auto) Lymph # [place] # Baso # Seg Neutrophils % Seg Neutrophils # PT INR APTT Thrombin Time Heparin Anti-Xa Level 0.76 H Sodium Potassium Chloride Carbon Dioxide BUN Creatinine Glucose POC Glucose 176 H 191 H Hemoglobin A1c Calcium Phosphorus Magnesium PTH Intact Urine Creatinine Urine Total Protein 03/04/18 03/05/18 03/05/18 21:55 05:43 05:43 WBC RBC Hgb Hct MCHC RDW Plt Count Lymph % (Auto) [place] % (Auto) 13.4 H Lymph # [place] # 1.3 H Baso # Seg Neutrophils % Seg Neutrophils # PT INR APTT Thrombin Time Heparin Anti-Xa Level Sodium Potassium Chloride Carbon Dioxide BUN Creatinine Glucose 101 H POC Glucose 248 H Hemoglobin A1c Calcium 8.1 L Phosphorus Magnesium PTH Intact Urine Creatinine Urine Total Protein 03/05/18 03/05/18 03/05/18 11:02 16:43 21:03 WBC RBC Hgb Hct MCHC RDW Plt Count Lymph % (Auto) [place] % (Auto) Lymph # [place] # Baso # Seg Neutrophils % Seg Neutrophils # PT INR APTT Thrombin Time Heparin Anti-Xa Level Sodium Potassium Chloride Carbon Dioxide BUN Creatinine Glucose POC Glucose 212 H 218 H 208 H Hemoglobin A1c Calcium Phosphorus Magnesium PTH Intact Urine Creatinine Urine Total Protein 03/06/18 03/06/18 03/06/18 06:26 06:26 12:19 WBC RBC Hgb Hct MCHC RDW Plt Count Lymph % (Auto) [place] % (Auto) Lymph # [place] # Baso # Seg Neutrophils % Seg Neutrophils # PT INR APTT Thrombin Time Heparin Anti-Xa Level 0.15 L Sodium Potassium Chloride Carbon Dioxide 21 L BUN Creatinine Glucose 125 H POC Glucose 62 L Hemoglobin A1c Calcium Phosphorus Magnesium PTH Intact Urine Creatinine Urine Total Protein 03/06/18 03/06/18 03/06/18 13:26 17:16 20:40 WBC RBC Hgb Hct MCHC RDW Plt Count Lymph % (Auto) [place] % (Auto) Lymph # [place] # Baso # Seg Neutrophils % Seg Neutrophils # PT INR APTT Thrombin Time Heparin Anti-Xa Level 0.18 L 0.20 L Sodium Potassium Chloride Carbon Dioxide BUN Creatinine Glucose POC Glucose 165 H Hemoglobin A1c Calcium Phosphorus Magnesium PTH Intact Urine Creatinine Urine Total Protein 03/06/18 03/07/18 03/07/18 21:18 05:28 16:22 WBC RBC Hgb Hct MCHC RDW Plt Count Lymph % (Auto) [place] % (Auto) Lymph # [place] # Baso # Seg Neutrophils % Seg Neutrophils # PT INR APTT Thrombin Time Heparin Anti-Xa Level Sodium Potassium 3.5 L Chloride Carbon Dioxide 21 L BUN Creatinine Glucose 59 L POC Glucose 232 H 131 H Hemoglobin A1c Calcium 8.3 L Phosphorus Magnesium PTH Intact Urine Creatinine Urine Total Protein 03/07/18 03/08/18 22:19 06:26 WBC RBC Hgb Hct MCHC RDW Plt Count Lymph % (Auto) [place] % (Auto) Lymph # [place] # Baso # Seg Neutrophils % Seg Neutrophils # PT INR APTT Thrombin Time Heparin Anti-Xa Level Sodium Potassium Chloride Carbon Dioxide BUN Creatinine Glucose 107 H POC Glucose 69 L Hemoglobin A1c Calcium 8.3 L Phosphorus Magnesium PTH Intact Urine Creatinine Urine Total Protein Allied health notes reviewed: nursing
[2018-03-08] MEDS: PRAVACHOL PO SCH (23:04)
[2018-03-08] MEDS: LANTUS SUB-Q SCH (23:05)
[2018-03-09 06:30] LABS: BUN/Creatinine Ratio 10; Blood Urea Nitrogen 11 mg/dL (9-20); Calcium 8.5 mg/dL (8.4-10.2); Hemolysis Index 1
[2018-03-09] MEDS: HumaLOG SUB-Q SCH ×2 (08:04→12:03)
[2018-03-09] MEDS: ELIQUIS PO SCH (09:24)
[2018-03-09] MEDS: NORVASC PO SCH (09:24)
[2018-03-09 09:25] VITALS: BP 124/73
--- NOTE | 2018-03-09 10:20 | Progress Note ---
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 Conservative cardiac management. Stable cardiac aguirre. Once discharged, patient will follow up with [facility] as scheduled at 140p. Subjective Date of service: 03/09/18 Principal diagnosis: kidney mass Interval history: Patient has no cardiac complaints. Objective Vital Signs Temp Pulse Pulse Resp BP BP Pulse Ox 03/09/18 09:24 67 124/73 03/09/18 07:00 67 20 03/09/18 06:23 98.8 F 64 20 127/80 99 03/08/18 23:52 98.1 F 72 20 158/91 98 03/08/18 18:10 98.7 F 92 H 16 162/100 97 03/08/18 18:05 93 H 182/105 67 L 03/08/18 13:00 98.3 F 69 16 160/104 100 03/08/18 12:56 98.3 F 70 16 160/104 99 - Physical Examination General: No Apparent Distress HEENT: Positive: PERRL Cardiac: Positive: Reg Rate and Rhythm Lungs: Positive: Decreased Breath Sounds Neuro: Positive: Grossly Intact Extremities: Absent: edema - Labs and Meds Coagulation 03/08/18 Range/Units 15:43 PT 14.6 (12.2-14.9) Sec. INR 1.09 (0.87-1.13) APTT 28.4 (24.2-36.6) Sec. CBC 03/08/18 Range/Units 15:43 Hgb 11.9 (11.8-15.2) gm/dl Hct 36.4 (35.5-45.6) % Plt Count 419 (140-440) K/mm3 Comprehensive Metabolic Panel 03/09/18 Range/Units 05:28 Sodium 140 (137-145) mmol/L Potassium 4.3 (3.6-5.0) mmol/L Chloride 106.6 (98-107) mmol/L Carbon Dioxide 24 (22-30) mmol/L BUN 11 (9-20) mg/dL Creatinine 1.1 (0.8-1.5) mg/dL Glucose 168 H (75-100) mg/dL Calcium 8.5 (8.4-10.2) mg/dL - Allied health notes Allied health notes reviewed: nursing
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
--- NOTE | 2018-03-09 13:40 | Hem/Onc Progress Note ---
Assessment and Plan # left renal mass - may be neoplastic in etiology - urology consulted. # liver abn - subcentimeter nodularity on CT - report mentions possible neoplastic however US report for liver - no lesion seen , MRI liver 03/07 - no mets # Bladder abn - urology consulted # new DM - was in ICU as admission sugar was >1000 # h/o Leukocytosis and Erythrocytosis # CTA - b/l PE and doppler shows left leg DVT - pt was on heparin h/o rt leg DVT in past - NOAC Prothrombin gene mutation and Factor V Leiden mutation study ordered Urology discussing reg kidney sx - as OP s/p reversible IVC filter on 03/08 - Patient Problems (1) Renal mass Onset Date: ~03/05/18 Status: Acute Subjective Date of service: 03/09/18 Principal diagnosis: renal mass Interval history: h/o SOB h/o rt leg DVT many years ago PE /DVT - was on heparin - then NOAC US abdo done - liver normal MRI liver done 03/07 - no mets s/p reversible IVC filter Objective - Constitutional Vitals: Last Vital Signs Temp 98.8 F 03/09/18 06:23 Pulse 67 03/09/18 09:24 Resp 20 03/09/18 07:00 BP 124/73 03/09/18 09:24 Pulse Ox 99 03/09/18 06:23 Pain Intensity (0-10): denies any pain General appearance: no acute distress Performance status: 0-fully active - EENT Eyes: PERRL ENT: clear oral mucosa Lymph node exam: negative cervical, negative supraclavicular - Neck Neck: supple - Respiratory Respiratory effort: Positive: normal Respiratory: bilateral: CTA - Cardiovascular Heart Sounds: Present: S1 & S2 Extremities: No edema - Gastrointestinal General gastrointestinal: Present: soft, non-tender Rectal Exam: deferred - Genitourinary Male genitourinary: Present: deferred - Integumentary Integumentary: warm - Musculoskeletal Musculoskeletal: strength equal bilaterally - Neurologic Neurologic: moves all extremities - Psychiatric Psychiatric: appropriate mood/affect - Allied health notes Allied health notes reviewed: nursing - Labs Lab Results: Laboratory Results - last 24 hr 03/08/18 03/08/18 03/08/18 15:43 15:43 21:59 Hgb 11.9 Hct 36.4 Plt Count 419 PT 14.6 INR 1.09 APTT 28.4 Sodium Potassium Chloride Carbon Dioxide Anion Gap BUN Creatinine Estimated GFR BUN/Creatinine Ratio Glucose POC Glucose 242 H Calcium 03/09/18 03/09/18 03/09/18 05:28 07:36 11:59 Hgb Hct Plt Count PT INR APTT Sodium 140 Potassium 4.3 Chloride 106.6 Carbon Dioxide 24 Anion Gap 14 BUN 11 Creatinine 1.1 Estimated GFR > 60 BUN/Creatinine Ratio 10 Glucose 168 H POC Glucose 137 H 125 H Calcium 8.5
[2018-03-15] MEDS ORDERED: ELIQUIS PO SCH (22:00)
== END 2018-03-09 16:23 | disposition home health service (06) | DRG 628 ==
LOC: ED 22:53 → CC1 02-27 01:33 → 3A 03-01 16:05
PROVIDERS: ADMIT Internal Medicine; ATTEND Internal Medicine
PROC: 3E0234Z Introduction of Serum, Toxoid and Vaccine into Muscle, Percutaneous Approach (ICD-10-PCS; 2018-02-28)
PROC: 06H03DZ Insertion of Intraluminal Device into Inferior Vena Cava, Percutaneous Approach (ICD-10-PCS; principal; 2018-03-08)
PROC: B5191ZA Fluoroscopy of Inferior Vena Cava using Low Osmolar Contrast, Guidance (ICD-10-PCS; 2018-03-08)
PROC: B543ZZA Ultrasonography of Right Jugular Veins, Guidance (ICD-10-PCS; 2018-03-08)
DX: E10.10 Type 1 diabetes mellitus with ketoacidosis without coma (principal); I26.99 Other pulmonary embolism without acute cor pulmonale; N17.0 Acute kidney failure with tubular necrosis; G93.40 Encephalopathy, unspecified; E87.0 Hyperosmolality and hypernatremia; I82.412 Acute embolism and thrombosis of left femoral vein; I82.591 Chronic embolism and thrombosis of other specified deep vein of right lower extremity; D68.69 Other thrombophilia; C64.9 Malignant neoplasm of unspecified kidney, except renal pelvis; I71.4 Abdominal aortic aneurysm, without rupture; D75.1 Secondary polycythemia; I10 Essential (primary) hypertension; N32.9 Bladder disorder, unspecified; K76.89 Other specified diseases of liver; D72.829 Elevated white blood cell count, unspecified; E10.22 Type 1 diabetes mellitus with diabetic chronic kidney disease; N18.9 Chronic kidney disease, unspecified; E10.65 Type 1 diabetes mellitus with hyperglycemia; E83.39 Other disorders of phosphorus metabolism; E87.5 Hyperkalemia; Z79.01 Long term (current) use of anticoagulants; Z79.899 Other long term (current) drug therapy; Z23 Encounter for immunization
CPT/HCPCS: 36415; 37191; 70450; 71260; 74176; 74177; 74183; 76705; 76770; 76937; 80048; 81001; 82570; 82962; 83036; 83735; 83970; 84100; 84156; 84300; 84484; 85014; 85018; 85025; 85049; 85210; 85220; 85520; 85610; 85670; 85730; 90732; 93005; 93010; 93306; 93970; 96374; 96375; 99291; A9270-GY; A9577; C1769; C1880; J0690; J1644; J1815; J2250; J2405; J2543; J3010; J7030; J7040; Q9967

== ENCOUNTER 2018-07-23 12:43 | Outpatient (CLI) | payer OTHER ==
[2018-07-23 13:18] LABS: Hematocrit 41.8 % (35.5-45.6); Hemoglobin 13.6 gm/dl (11.8-15.2); Mean Corpuscular HGB Conc 33 % (32-34); Mean Corpuscular Volume 83 fl (84-94); Platelet Count 253 K/mm3 (140-440); Red Blood Count 5.07 M/mm3 (3.65-5.03); Red Cell Distribution Width 15.6 % (13.2-15.2)
[2018-07-23 13:29] LABS: Creatinine,Urine 164.3 mg/dL (0.1-20.0); Protein/Creatinine Ratio,Urine 0.12
[2018-07-23 13:40] LABS: Bilirubin,Urine NEG (Negative); Blood,Urine NEG (Negative); Color,Urine Yellow (Yellow); Mucus,Urine FEW /HPF; Protein,Urine <15 mg/dL mg/dL (Negative); Urobilinogen,Urine < 2.0 mg/dL (<2.0)
[2018-07-23 13:45] LABS: Calcium 9.7 mg/dL (8.4-10.2)
== END 2018-07-23 12:44 | disposition home or self-care (01) ==
LOC: LAB 12:43
PROVIDERS: ATTEND Internal Medicine Nephrology
DX: I12.9 Hypertensive chronic kidney disease with stage 1 through stage 4 chronic kidney disease, or unspecified chronic kidney disease (principal); C77.4 Secondary and unspecified malignant neoplasm of inguinal and lower limb lymph nodes; E11.22 Type 2 diabetes mellitus with diabetic chronic kidney disease; N18.9 Chronic kidney disease, unspecified; E78.5 Hyperlipidemia, unspecified; E78.00 Pure hypercholesterolemia, unspecified; E66.9 Obesity, unspecified; Z87.891 Personal history of nicotine dependence
CPT/HCPCS: 36415; 80048; 81001; 82306; 82570; 83970; 84100; 84156; 85027

== ENCOUNTER 2018-08-20 09:59 | Outpatient (CLI) | payer OTHER ==
--- NOTE | 2018-08-20 16:08 | Cat Scan Report ---
FINAL REPORT EXAM: CT ABDOMEN PELVIS WO CON HISTORY: MALIGNANT NEOPLASM OF LEFT KIDNEY COMPARISON: CT of the abdomen pelvis performed on 03/03/2018 TECHNIQUE: Multiple contiguous axial images were obtained from the lung bases to the pubic symphysis without administration of IV contrast. Reformatted sagittal and coronal images were available for re view. FINDINGS: Lung bases: Normal. Visualized heart and mediastinum: Trace pericardial effusion. Moderate to severe coronary artery calc ifications. Liver: Scattered subcentimeter low-density lesions throughout the hepatic parenchyma, that are incomp letely characterized on this non contrast study, but are unchanged the previous study and likely repr esent small cysts. Spleen: Normal noncontrast appearance. Pancreas: Normal noncontrast appearance. Gallbladder and Biliary Tree: Small calcified gallstones. No pericholecystic fluid or gallbladder wal l thickening. No biliary ductal dilatation. Adrenal glands: Unchanged left adrenal adenoma measuring approximately 3.9 centimeters. Normal appear ance of the right adrenal gland. Kidneys: The left kidney has been surgically removed. No visualized mass within the left renal fossa. Normal noncontrast appearance of the right kidney. Scattered renal vascular calcifications Bladder: Normal. Pelvic organs: Mild enlargement of the prostate gland, similar in appearance to the previous study. Bowel: No focal wall thickening. No evidence of obstruction. Large amount of stool throughout the ent miranda colon. The appendix is not clearly identified, but there are no pericecal inflammatory changes. Peritoneum: No significant mesenteric adenopathy. No free air or free fluid. Vasculature: Again seen is aneurysmal dilatation of the distal abdominal aorta, just above the bifurc ation measuring approximately 3.3 x 3.5 centimeters in diameter. Unchanged dilatation of the left com mon iliac artery, measuring up to 2.4 centimeters. Bones and soft tissues: Degenerative changes of the lumbar spine. No acute fracture or dislocation. N o suspicious osseous lesions. Small, fat containing periumbilical hernia. IMPRESSION: Status post left nephrectomy. No residual or recurrent disease, however the exam is somewhat limited due to lack of IV contrast. Unchanged abdominal aortic aneurysm measuring up to 3.5 centimeters in diameter. Unchanged left commo n iliac artery aneurysm measuring up to 2.4 centimeters. Stable subcentimeter low-density lesions of the hepatic parenchyma, likely medical representative of cysts. Unchanged left adrenal adenoma. Mild enlargement of the prostate gland, similar to the previous study. Cholelithiasis without evidence for cholecystitis.
== END 2018-08-20 10:00 | disposition home or self-care (01) ==
LOC: CT 09:59
PROVIDERS: ATTEND Urology
DX: K42.9 Umbilical hernia without obstruction or gangrene (principal); K80.20 Calculus of gallbladder without cholecystitis without obstruction; D35.02 Benign neoplasm of left adrenal gland; I71.4 Abdominal aortic aneurysm, without rupture; C64.2 Malignant neoplasm of left kidney, except renal pelvis; M47.896 Other spondylosis, lumbar region; E78.00 Pure hypercholesterolemia, unspecified; I10 Essential (primary) hypertension; E11.9 Type 2 diabetes mellitus without complications; E78.5 Hyperlipidemia, unspecified; Z87.891 Personal history of nicotine dependence
CPT/HCPCS: 74176

== ENCOUNTER 2018-08-31 11:27 | Outpatient (CLI) | payer OTHER | END 2018-08-31 11:28 | disposition home or self-care (01) | LOC: CT 11:27 | PROVIDERS: ATTEND Radiology Diagnostic Radiology | DX: C64.2 Malignant neoplasm of left kidney, except renal pelvis (principal); I70.213 Atherosclerosis of native arteries of extremities with intermittent claudication, bilateral legs; I27.82 Chronic pulmonary embolism; I10 Essential (primary) hypertension; E11.9 Type 2 diabetes mellitus without complications; E78.5 Hyperlipidemia, unspecified; E78.00 Pure hypercholesterolemia, unspecified; E66.9 Obesity, unspecified; Z87.891 Personal history of nicotine dependence | CPT/HCPCS: 36415; 82565; 84520 ==

== ENCOUNTER 2018-12-17 12:15 | Outpatient (CLI) | payer OTHER ==
[2018-12-17 12:48] LABS: Hematocrit 41.1 % (35.5-45.6); Hemoglobin 13.5 gm/dl (11.8-15.2); Mean Corpuscular HGB Conc 33 % (32-34); Mean Corpuscular Volume 84 fl (84-94); Platelet Count 243 K/mm3 (140-440); Red Blood Count 4.89 M/mm3 (3.65-5.03); Red Cell Distribution Width 14.9 % (13.2-15.2)
[2018-12-17 13:13] LABS: Calcium 9.5 mg/dL (8.4-10.2)
[2018-12-17 14:54] LABS: Bilirubin,Urine NEG (Negative); Blood,Urine NEG (Negative); Color,Urine Yellow (Yellow); Mucus,Urine FEW /HPF; Protein,Urine <15 mg/dL mg/dL (Negative); Urobilinogen,Urine < 2.0 mg/dL (<2.0)
[2018-12-17 15:09] LABS: Creatinine,Urine 282.6 mg/dL (0.1-20.0); Protein/Creatinine Ratio,Urine 0.07
== END 2018-12-17 12:16 | disposition home or self-care (01) ==
LOC: LAB 12:15
PROVIDERS: ATTEND Internal Medicine Nephrology
DX: I12.9 Hypertensive chronic kidney disease with stage 1 through stage 4 chronic kidney disease, or unspecified chronic kidney disease (principal); E11.22 Type 2 diabetes mellitus with diabetic chronic kidney disease; N18.3 Chronic kidney disease, stage 3 (moderate); C77.4 Secondary and unspecified malignant neoplasm of inguinal and lower limb lymph nodes; E78.00 Pure hypercholesterolemia, unspecified; E66.9 Obesity, unspecified
CPT/HCPCS: 36415; 80048; 81001; 82570; 84100; 84156; 85027

== ENCOUNTER 2020-03-25 13:24 | Outpatient (CLI) | payer OTHER ==
[2020-03-25 13:54] LABS: Basophils # (Auto) 0.1 K/mm3 (0.0-0.1); Basophils % (Auto) 1.1 % (0.0-1.8); Eosinophils # (Auto) 0.1 K/mm3 (0.0-0.4); Eosinophils % (Auto) 2.1 % (0.0-4.3); Hemoglobin 13.6 gm/dl (11.8-15.2); Lymphocytes # (Auto) 1.5 K/mm3 (1.2-5.4); Lymphocytes % (Auto) 22.9 % (13.4-35.0); Mean Corpuscular HGB Conc 33 % (32-34); Mean Corpuscular Volume 86 fl (84-94); Monocytes # (Auto) 0.5 K/mm3 (0.0-0.8); Monocytes % (Auto) 8.4 % (0.0-7.3); Platelet Count 213 K/mm3 (140-440); Red Blood Count 4.74 M/mm3 (3.65-5.03); Red Cell Distribution Width 14.8 % (13.2-15.2)
[2020-03-25 14:10] LABS: Calcium 9.9 mg/dL (8.4-10.2)
[2020-03-26 14:56] LABS: Bilirubin,Urine NEG (Negative); Blood,Urine SM (Negative); Color,Urine Yellow (Yellow); Mucus,Urine FEW /HPF; RBC,Urine < 1.0 /HPF (0.0-6.0)
[2020-03-26 15:05] LABS: Creatinine,Urine 255.2 mg/dL (0.1-20.0); Protein/Creatinine Ratio,Urine 0.14
== END 2020-03-25 13:25 | disposition home or self-care (01) ==
LOC: LAB 13:24
PROVIDERS: ATTEND Internal Medicine Nephrology
DX: N18.3 Chronic kidney disease, stage 3 (moderate) (principal)
CPT/HCPCS: 36415; 80048; 81001; 82570; 84156; 85025

== ENCOUNTER 2020-07-14 12:05 | Outpatient (CLI) | payer OTHER ==
[2020-07-14 13:24] LABS: Basophils # (Auto) 0.1 K/mm3 (0.0-0.1); Eosinophils # (Auto) 0.1 K/mm3 (0.0-0.4); Eosinophils % (Auto) 2.3 % (0.0-4.3); Hematocrit 39.8 % (35.5-45.6); Hemoglobin 13.1 gm/dl (11.8-15.2); Lymphocytes # (Auto) 1.1 K/mm3 (1.2-5.4); Lymphocytes % (Auto) 18.4 % (13.4-35.0); Mean Corpuscular HGB Conc 33 % (32-34); Mean Corpuscular Volume 87 fl (84-94); Monocytes # (Auto) 0.5 K/mm3 (0.0-0.8); Platelet Count 249 K/mm3 (140-440); Red Blood Count 4.59 M/mm3 (3.65-5.03); Red Cell Distribution Width 14.6 % (13.2-15.2)
[2020-07-14 13:44] LABS: Calcium 9.2 mg/dL (8.4-10.2)
[2020-07-14 14:11] LABS: Bilirubin,Urine NEG (Negative); Blood,Urine NEG (Negative); Color,Urine Yellow (Yellow); Mucus,Urine FEW /HPF; Urobilinogen,Urine < 2.0 mg/dL (<2.0)
[2020-07-14 14:23] LABS: Creatinine,Urine 308.9 mg/dL (0.1-20.0); Protein/Creatinine Ratio,Urine 0.12
== END 2020-07-14 12:06 | disposition home or self-care (01) ==
LOC: LAB 12:05
PROVIDERS: ATTEND Internal Medicine Nephrology
DX: C77.4 Secondary and unspecified malignant neoplasm of inguinal and lower limb lymph nodes (principal)
CPT/HCPCS: 36415; 80048; 81001; 82306; 82570; 83970; 84100; 84156; 85025

== ENCOUNTER 2020-11-26 12:42 | Outpatient (CLI) | payer OTHER ==
[2020-11-26 13:40] LABS: Basophils # (Auto) 0.1 K/mm3 (0.0-0.1); Basophils % (Auto) 0.7 % (0.0-1.8); Eosinophils # (Auto) 0.1 K/mm3 (0.0-0.4); Eosinophils % (Auto) 0.6 % (0.0-4.3); Hematocrit 37.8 % (35.5-45.6); Hemoglobin 12.6 gm/dl (11.8-15.2); Lymphocytes # (Auto) 0.9 K/mm3 (1.2-5.4); Lymphocytes % (Auto) 6.5 % (13.4-35.0); Mean Corpuscular HGB Conc 33 % (32-34); Mean Corpuscular Volume 85 fl (84-94); Monocytes # (Auto) 1.3 K/mm3 (0.0-0.8); Monocytes % (Auto) 9.6 % (0.0-7.3); Platelet Count 216 K/mm3 (140-440); Red Blood Count 4.44 M/mm3 (3.65-5.03); Red Cell Distribution Width 14.6 % (13.2-15.2)
[2020-11-26 13:55] LABS: Bacteria,Urine 4+ /HPF (Negative); Bilirubin,Urine NEG (Negative); Blood,Urine SM (Negative); Color,Urine Yellow (Yellow); Mucus,Urine 3+ /HPF; Urobilinogen,Urine < 2.0 mg/dL (<2.0)
[2020-11-26 14:01] LABS: Calcium 9.1 mg/dL (8.4-10.2)
[2020-11-26 14:29] LABS: Creatinine,Urine 262.2 mg/dL (0.1-20.0); Protein/Creatinine Ratio,Urine 0.16
[2020-11-29 10:52] LABS: Vitamin D, 25-OH, D2 7 ng/mL
== END 2020-11-26 12:43 | disposition home or self-care (01) ==
LOC: LAB 12:42
PROVIDERS: ATTEND Internal Medicine Nephrology
DX: C77.4 Secondary and unspecified malignant neoplasm of inguinal and lower limb lymph nodes (principal)
CPT/HCPCS: 36415; 80048; 81001; 82306; 82570; 83970; 84100; 84156; 85025

== ENCOUNTER 2021-04-07 11:17 | Outpatient (CLI) | payer OTHER ==
[2021-04-07 11:48] LABS: Bilirubin,Urine NEG (Negative); Blood,Urine NEG (Negative); Color,Urine Yellow (Yellow); RBC,Urine < 1.0 /HPF (0.0-6.0); Urobilinogen,Urine < 2.0 mg/dL (<2.0)
[2021-04-07 11:50] LABS: Basophils # (Auto) 0.1 K/mm3 (0.0-0.1); Basophils % (Auto) 1.2 % (0.0-1.8); Eosinophils # (Auto) 0.1 K/mm3 (0.0-0.4); Hematocrit 40.3 % (35.5-45.6); Hemoglobin 13.4 gm/dl (11.8-15.2); Lymphocytes # (Auto) 1.2 K/mm3 (1.2-5.4); Lymphocytes % (Auto) 20.1 % (13.4-35.0); Mean Corpuscular HGB Conc 33 % (32-34); Mean Corpuscular Volume 85 fl (84-94); Monocytes # (Auto) 0.4 K/mm3 (0.0-0.8); Monocytes % (Auto) 7.5 % (0.0-7.3); Platelet Count 188 K/mm3 (140-440); Red Blood Count 4.72 M/mm3 (3.65-5.03); Red Cell Distribution Width 15.6 % (13.2-15.2)
[2021-04-07 12:06] LABS: Calcium 9.6 mg/dL (8.4-10.2)
[2021-04-07 12:51] LABS: Creatinine,Urine 112.6 mg/dL (0.1-20.0); Protein/Creatinine Ratio,Urine 0.2
== END 2021-04-07 11:18 | disposition home or self-care (01) ==
LOC: LAB 11:17
PROVIDERS: ATTEND Internal Medicine Nephrology
DX: C77.4 Secondary and unspecified malignant neoplasm of inguinal and lower limb lymph nodes (principal); I12.9 Hypertensive chronic kidney disease with stage 1 through stage 4 chronic kidney disease, or unspecified chronic kidney disease; E78.5 Hyperlipidemia, unspecified; N18.31 Chronic kidney disease, stage 3a; N25.81 Secondary hyperparathyroidism of renal origin
CPT/HCPCS: 36415; 80048; 81001; 82570; 84156; 85025

== ENCOUNTER 2021-06-07 07:40 | Day surgery (SDC) | payer OTHER ==
[2021-06-07] MEDS ORDERED: SODIUM CHLORIDE 0.9% 1000 ML 1,000 ML IV ONE (08:18)
[2021-06-07 08:45] LABS: Basophils # (Auto) 0.1 K/mm3 (0.0-0.1); Basophils % (Auto) 1.1 % (0.0-1.8); Eosinophils # (Auto) 0.1 K/mm3 (0.0-0.4); Eosinophils % (Auto) 1.7 % (0.0-4.3); Hemoglobin 12.6 gm/dl (11.8-15.2); Lymphocytes % (Auto) 17.1 % (13.4-35.0); Mean Corpuscular HGB Conc 32 % (32-34); Mean Corpuscular Volume 86 fl (84-94); Monocytes # (Auto) 0.4 K/mm3 (0.0-0.8); Monocytes % (Auto) 7.3 % (0.0-7.3); Platelet Count 196 K/mm3 (140-440); Red Blood Count 4.66 M/mm3 (3.65-5.03); Red Cell Distribution Width 15.4 % (13.2-15.2)
[2021-06-07 09:15] LABS: INR 1.03 (0.87-1.13)
[2021-06-07] MEDS ORDERED: HEPARIN/NS 5000 UNIT/500ML 1,000 ML IR ONE (09:15)
[2021-06-07] MEDS ORDERED: LIDOCAINE (2%) 20 MG/1 ML VIAL 20 ML MDV INFILTRATI ONE (09:15)
[2021-06-07 09:16] LABS: Partial Thromboplastin Time 30.9 Sec. (24.2-36.6)
[2021-06-07] MEDS ORDERED: MIDAZOLAM 2 MG/2 ML INJ ONE ×2 (09:19→10:58)
[2021-06-07] MEDS ORDERED: ceFAZolin/Water 2 GM/20 ML 2 GM/20 ML SYRINGE IV ONE (09:32)
[2021-06-07] MEDS ORDERED: SODIUM CHLORIDE 0.9% 1000 ML 1,000 ML IV SCH (10:00)
[2021-06-07] MEDS ORDERED: NITROGLYCERIN SYRINGE 3 ML ONE (10:25)
[2021-06-07] MEDS ORDERED: VERAPAMIL 5 MG/2 ML INJ ONE (10:25)
[2021-06-07] MEDS: fentaNYL 100 MCG/2 ML INJ ONE ×2 (10:40→10:54)
[2021-06-07] MEDS ORDERED: NITROGLYCERIN 600 MCG/3 ML SYRINGE UD ONE ×3 (10:45→11:38)
[2021-06-07] MEDS ORDERED: HEPARIN 10,000 UNITS/10 ML VIAL IV ONE ×2 (10:45→10:53)
[2021-06-07] MEDS ORDERED: NITROGLYCERIN SYRINGE 6 ML ONE (10:49)
[2021-06-07] MEDS ORDERED: MIDAZOLAM 2 MG/2 ML INJ IV ONE ×2 (10:54→11:10)
[2021-06-07] MEDS ORDERED: fentaNYL 100 MCG/2 ML INJ ONE (10:59)
[2021-06-07] MEDS ORDERED: fentaNYL 100 MCG/2 ML INJ IV ONE (11:10)
[2021-06-07] MEDS ORDERED: CLOPIDOGREL 300 MG TAB ONE (11:47)
[2021-06-07] MEDS ORDERED: ALUM-MAG HYDROXIDE-SIMETHICONE 200-200-20MG/5ML ORAL LIQD 30 ML ONE (11:47)
--- NOTE | 2021-06-07 12:08 | Short Stay Summary ---
Short Stay Documentation Date of service: 06/07/21 Narrative H&P: 66-year-old male with severe PVD and pelvic claudication including impotence refractory to Viagra, and buttock discomfort who presents for endovascular revascularization of the internal iliac arteries. Risks, benefits, and alternatives discussed. Patient agrees with procedure. - History Principal diagnosis: pelvic arterial insuffiency/PVD H&P: obtained from office - Allergies and Medications Current Medications: Allergies No Known Allergies Allergy (Verified 02/27/18 00:58) Home Medications Medication Instructions Recorded Confirmed Last Taken Type Pravastatin [Pravachol] 40 mg PO QHS #30 tablet 03/09/18 06/07/21 06/06/21 Rx amLODIPine 10 mg PO DAILY #30 tablet 03/09/18 06/07/21 06/07/21 Rx Labetalol HCl 300 mg PO BID 09/12/18 06/07/21 06/07/21 History Apixaban [Eliquis] 2.5 mg PO Q12HR 06/07/21 06/07/21 06/07/21 History Clopidogrel [Plavix] 75 mg PO QDAY 06/07/21 06/07/21 06/06/21 History Tamsulosin [Flomax] 0.4 mg PO QDAY 06/07/21 06/07/21 06/06/21 History cilostazoL [Pletal] 100 mg PO BID 06/07/21 06/07/21 06/07/21 History Active Medications Sodium Chloride (Nacl 0.9% 1000 Ml) 1,000 mls @ 42 mls/hr IV DIRECT ADRIANO - Physical exam General appearance: no acute distress HEENT: Mucous membr. moist/pink Lungs: Normal air movement Gastrointestinal: normal Extremities: normal temperature, normal color - Brief post op/procedure progress note Date of procedure: 06/07/21 Pre-op diagnosis: Bilateral internal iliac artery occlusive disease with symptoms Post-op diagnosis: same Procedure: 1. Ultrasound-guided access of the left radial artery. 2. Selection of the left external iliac artery and common femoral artery. 3. Selection of the left internal iliac artery with angiography. 4. Angioplasty of the left internal iliac artery with a 4 mm x 80 mm angioplasty balloon and 5 mm x 150 mm angioplasty balloon. Anesthesia: local Surgeon: PRAVEEN GARAY Estimated blood loss: minimal Condition: stable - Hospital course Hospital course: Patient tolerated the procedure well. No immediate postprocedural complications. - Disposition Condition at discharge: Stable Disposition: 01 HOME / SELF CARE / HOMELESS - Discharge Diagnoses (1) Peripheral vascular disease, unspecified Status: Acute (2) CKD (chronic kidney disease) Status: Acute (3) Hyperlipidemia Status: Chronic Qualifiers: (4) Hypertension Status: Chronic (5) Insulin dependent diabetes mellitus Status: Chronic (6) Iliac artery occlusion, bilateral Status: Acute Short Stay Discharge Plan Activity: advance as tolerated Weight Bearing Status: Weight Bear as Tolerated (do not lift more than 10 lbs with the left hand for 5-7 days.) Diet: regular Wound: keep clean and dry Follow up with: MARIANO KAY [Other] - 7 Days
--- NOTE | 2021-06-07 12:11 | Operative Report ---
Operative Report Operative Report: EXAM: 1. Ultrasound-guided access of the left radial artery. 2. Selection of the right common iliac artery, and left external iliac artery and common femoral artery. 3. Selection of the left internal iliac artery with angiography. 4. Angioplasty of the left internal iliac artery with a 4 mm x 80 mm angio plasty balloon and 5 mm x 150 mm angioplasty balloon. DATE: 06/07/2021 [employer]WAYS CONTR[employer] SPECIALIST: PRAVEEN GARAY MD INDICATION: 66-year-old male with right internal iliac artery occlusion and left internal iliac artery severe stenosis with symptoms of pelvic arterial insufficiency including impotence and buttock discomfort who presents for revascularization. MEDICATIONS: Please see nursing report for full details. DEVICES: 4 mm x 80 mm angioplasty balloon 5 mm x 150 mm angioplasty balloon CONTRAST: Please see [employer] report for full details PROCEDURE: The risks, benefits, and alternatives were discussed with the patient; written informed consent was obtained. Preprocedural imaging was reviewed demonstrating a chronic occlusion of the right internal iliac artery and severe stenosis of the left internal iliac artery. The patient was brought to the angiography suite and the left wrist was prepped and draped in a sterile fashion. Under ultrasound guidance, the left wrist was accessed with a 21-gauge micropuncture needle. 0.018 inch wire was passed into the radial artery. Needle was exchanged for 5/6 glide sheath slender. Radial cocktail was administered. Wire and catheter were used to select the thoracic abdominal aorta, descending thoracic abdominal aorta, abdominal aorta, right common iliac artery, left common iliac artery, left external iliac artery and left common femoral artery. The patient was further heparinized. Further nitroglycerin was infused through the sheath. Sheath was then exchanged for 119 cm glide sheath slender and sheath was positioned in the distal most abdominal aorta. The left internal iliac artery was selected and digital subtraction was performed demonstrating multiphasic high-grade stenosis in the proximal and mid internal iliac artery. There is ectasia of the distal internal iliac artery. The rest of the vessels were predominantly patent. 0.018 inch wire was passed into the inferior gluteal artery and the internal iliac artery was serially angioplastied with a 4 mm x 80 mm angioplasty balloon and then a 5 mm x 150 mm angioplasty balloon. Digital subtraction angiography was performed demonstrating 20% residual narrowing of the left proximal and mid internal iliac artery. At this point, the sheath was retracted to the left radial artery and nitroglycerin was infused and all wires, catheters, and sheaths were removed and hemostasis was achieved with a TR band. Patient tolerated the procedure well. No immediate postprocedural complications. FINDINGS: Please see procedure note above IMPRESSION: Successful angioplasty and revascularization of the left internal iliac artery.
[2021-06-07 14:25] VITALS: BP 157/96
== END 2021-06-07 15:00 | disposition home or self-care (01) ==
LOC: CATHLABREC 07:40
PROVIDERS: ATTEND Radiology Diagnostic Radiology
DX: I70.212 Atherosclerosis of native arteries of extremities with intermittent claudication, left leg (principal); Z87.891 Personal history of nicotine dependence; Z79.899 Other long term (current) drug therapy; Z98.890 Other specified postprocedural states
CPT/HCPCS: 36415; 37220; 76937; 80048; 85025; 85610; 85730; 99156; 99157; C1725; C1769; C1894; J0690; J1644; J1815; J2250; J3010; J3490; J7030; Q0162; Q9967

== ENCOUNTER 2021-07-26 07:47 | Outpatient (CLI) | payer MEDICARE, OTHER ==
--- NOTE | 2021-07-26 09:33 | Cat Scan Report ---
CT abdomen pelvis /w con INDICATION / CLINICAL INFORMATION: MALIGNANT NEOPLASM OF KIDNEY. TECHNIQUE: Axial CT images were obtained through the abdomen and pelvis after 60 cc of Omnipaque [address] scans at this location are performed using CT dose reduction for ALARA by means of automated exposure control. COMPARISON: CT dated 03/14/2019. FINDINGS: LOWER CHEST: No significant abnormality LIVER: There are bilobar hepatic cysts. GALLBLADDER/BILIARY TREE: No significant abnormality PANCREAS: No significant abnormality SPLEEN: No significant abnormality ADRENALS: Stable left adrenal adenoma. KIDNEYS / URETER: 2.5 cm right renal cyst. No solid renal lesion. No hydronephrosis. Prior left nephr ectomy. No abnormal soft tissue in the operative bed. URINARY BLADDER: Bladder is partially decompressed, though grossly unremarkable. REPRODUCTIVE ORGANS: Enlarged prostate protrudes into the bladder, unchanged in appearance from 2019 exam. STOMACH / BOWEL: Small bowel is normal in caliber. The colon is unremarkable. The appendix is normal in caliber. LYMPH NODES: Moderate calcified and noncalcified atheromatous plaque within the aorta and major branc moe vessels with aneurysm of the infrarenal abdominal aorta, measuring 3.6 cm in AP dimension. There is also aneurysm of the left common iliac artery, measuring 2.2 cm. The right common iliac artery is ectatic. No acute abnormality. VASCULATURE: Prominent but nonenlarged bilateral inguinal lymph nodes are unchanged. No new or increa sing lymphadenopathy. OTHER: No free air, free fluid, or focal fluid collection is identified. SKELETAL SYSTEM: Degenerative changes of the spine. No acute osseous findings. No aggressive osseous lesions IMPRESSION: 1. Prior left nephrectomy. No evidence of recurrent or metastatic disease in the abdomen or pelvis. 2. Aneurysmal dilatation of the infrarenal abdominal aorta and left common iliac artery. 3. Other stable chronic and incidental findings, as above. Signer Name: Sam Biswas MD Signed: 07/26/2021 9:28 AM Workstation Name: [employer]
== END 2021-07-26 07:48 | disposition home or self-care (01) ==
LOC: CT 07:47
PROVIDERS: ATTEND Urology
DX: N28.1 Cyst of kidney, acquired (principal); N40.0 Benign prostatic hyperplasia without lower urinary tract symptoms; I71.9 Aortic aneurysm of unspecified site, without rupture; M47.816 Spondylosis without myelopathy or radiculopathy, lumbar region; I71.4 Abdominal aortic aneurysm, without rupture; Z90.5 Acquired absence of kidney; Z85.528 Personal history of other malignant neoplasm of kidney
CPT/HCPCS: 36415; 74178; 82565; 84520; Q9967

== ENCOUNTER 2021-08-06 11:08 | Outpatient (CLI) | payer MEDICARE, OTHER ==
[2021-08-06 11:55] LABS: Basophils # (Auto) 0.1 K/mm3 (0.0-0.1); Eosinophils # (Auto) 0.1 K/mm3 (0.0-0.4); Eosinophils % (Auto) 1.7 % (0.0-4.3); Hematocrit 40.6 % (35.5-45.6); Hemoglobin 12.9 gm/dl (11.8-15.2); Lymphocytes # (Auto) 1.2 K/mm3 (1.2-5.4); Lymphocytes % (Auto) 19.5 % (13.4-35.0); Mean Corpuscular HGB Conc 32 % (32-34); Mean Corpuscular Volume 86 fl (84-94); Monocytes # (Auto) 0.5 K/mm3 (0.0-0.8); Monocytes % (Auto) 7.7 % (0.0-7.3); Platelet Count 202 K/mm3 (140-440); Red Cell Distribution Width 14.9 % (13.2-15.2)
[2021-08-06 12:07] LABS: Creatinine,Urine 225.9 mg/dL (0.1-20.0); Protein/Creatinine Ratio,Urine 0.22
[2021-08-06 12:23] LABS: Calcium 8.9 mg/dL (8.4-10.2)
[2021-08-06 12:47] LABS: Bilirubin,Urine NEG (Negative); Blood,Urine NEG (Negative); Color,Urine Yellow (Yellow); Urobilinogen,Urine < 2.0 mg/dL (<2.0); WBC,Urine < 1.0 /HPF (0.0-6.0)
== END 2021-08-06 11:09 | disposition home or self-care (01) ==
LOC: LAB 11:08
PROVIDERS: ATTEND Internal Medicine Nephrology
DX: C77.4 Secondary and unspecified malignant neoplasm of inguinal and lower limb lymph nodes (principal); I12.9 Hypertensive chronic kidney disease with stage 1 through stage 4 chronic kidney disease, or unspecified chronic kidney disease; N18.31 Chronic kidney disease, stage 3a; E78.5 Hyperlipidemia, unspecified; N25.81 Secondary hyperparathyroidism of renal origin
CPT/HCPCS: 36415; 80048; 81001; 82570; 84156; 85025

== ENCOUNTER 2021-11-19 10:24 | Outpatient (CLI) | payer MEDICARE, OTHER ==
[2021-11-19 11:18] LABS: Basophils # (Auto) 0.1 K/mm3 (0.0-0.1); Eosinophils # (Auto) 0.1 K/mm3 (0.0-0.4); Eosinophils % (Auto) 0.9 % (0.0-4.3); Hematocrit 40.5 % (35.5-45.6); Hemoglobin 12.9 gm/dl (11.8-15.2); Lymphocytes # (Auto) 1.1 K/mm3 (1.2-5.4); Lymphocytes % (Auto) 19.9 % (13.4-35.0); Mean Corpuscular HGB Conc 32 % (32-34); Mean Corpuscular Volume 87 fl (84-94); Monocytes # (Auto) 0.4 K/mm3 (0.0-0.8); Monocytes % (Auto) 6.6 % (0.0-7.3); Platelet Count 198 K/mm3 (140-440); Red Blood Count 4.66 M/mm3 (3.65-5.03); Red Cell Distribution Width 15.2 % (13.2-15.2)
[2021-11-19 11:42] LABS: Calcium 9.3 mg/dL (8.4-10.2)
[2021-11-19 12:00] LABS: Bilirubin,Urine NEG (Negative); Blood,Urine NEG (Negative); Color,Urine Yellow (Yellow); Protein,Urine <15 mg/dL mg/dL (Negative); RBC,Urine < 1.0 /HPF (0.0-6.0); Urobilinogen,Urine < 2.0 mg/dL (<2.0)
[2021-11-19 12:13] LABS: Creatinine,Urine 154.2 mg/dL (0.1-20.0); Protein/Creatinine Ratio,Urine 0.11
[2021-11-19 12:14] LABS: WBC,Urine < 1.0 /HPF (0.0-6.0)
== END 2021-11-19 10:25 | disposition home or self-care (01) ==
LOC: LAB 10:24
PROVIDERS: ATTEND Internal Medicine Nephrology
DX: C77.4 Secondary and unspecified malignant neoplasm of inguinal and lower limb lymph nodes (principal); I12.9 Hypertensive chronic kidney disease with stage 1 through stage 4 chronic kidney disease, or unspecified chronic kidney disease; E78.5 Hyperlipidemia, unspecified; N18.31 Chronic kidney disease, stage 3a; N25.81 Secondary hyperparathyroidism of renal origin
CPT/HCPCS: 36415; 80048; 81001; 82570; 84156; 85025

== ENCOUNTER 2022-03-22 13:52 | Outpatient (CLI) | payer MEDICARE, OTHER ==
[2022-03-22 14:42] LABS: Basophils % (Auto) 0.8 % (0.0-1.8); Eosinophils # (Auto) 0.1 K/mm3 (0.0-0.4); Eosinophils % (Auto) 1.4 % (0.0-4.3); Hematocrit 39.9 % (35.5-45.6); Hemoglobin 13.2 gm/dl (11.8-15.2); Lymphocytes # (Auto) 1.1 K/mm3 (1.2-5.4); Lymphocytes % (Auto) 19.9 % (13.4-35.0); Mean Corpuscular HGB Conc 33 % (32-34); Mean Corpuscular Volume 86 fl (84-94); Monocytes # (Auto) 0.4 K/mm3 (0.0-0.8); Monocytes % (Auto) 7.2 % (0.0-7.3); Platelet Count 175 K/mm3 (140-440); Red Blood Count 4.63 M/mm3 (3.65-5.03); Red Cell Distribution Width 14.6 % (13.2-15.2)
[2022-03-22 14:47] LABS: Bilirubin,Urine NEG (Negative); Blood,Urine NEG (Negative); Color,Urine Yellow (Yellow); Urobilinogen,Urine < 2 mg/dL (<2.0)
[2022-03-22 14:48] LABS: RBC,Urine < 1.0 /HPF (0.0-6.0)
[2022-03-22 15:00] LABS: Hemolysis Index 262
[2022-03-22 15:02] LABS: Creatinine,Urine 291.8 mg/dL (0.1-20.0); Protein/Creatinine Ratio,Urine 0.12
[2022-03-22 15:07] LABS: BUN/Creatinine Ratio TNR; Blood Urea Nitrogen TNR mg/dL (9-20)
[2022-03-22 15:08] LABS: Calcium TNR mg/dL (8.4-10.2)
== END 2022-03-22 13:53 | disposition home or self-care (01) ==
LOC: LAB 13:52
PROVIDERS: ATTEND Internal Medicine Nephrology
DX: I12.9 Hypertensive chronic kidney disease with stage 1 through stage 4 chronic kidney disease, or unspecified chronic kidney disease (principal); N18.30 Chronic kidney disease, stage 3 unspecified; N25.81 Secondary hyperparathyroidism of renal origin
CPT/HCPCS: 36415; 80048; 81001; 82570; 84156; 85025